=== PATIENT | male | born 1950 | race Caucasian/White ===

== ENCOUNTER → 2017-01-13 | Outpatient (CLI) | payer MEDICARE, OTHER ==
[2017-01-13 12:27] LABS: ABSOLUTE EOSINOPHILS # (AUTO) 0.2 10^3/uL (0.0-0.6); ABSOLUTE MONOCYTES (AUTO) 0.7 10^3/uL (0.1-1.4); ABSOLUTE NEUT (AUTO) 6.2 10^3/uL (1.7-8.2); BASOPHILS % (AUTO) 0.2 % (0-2); EOSINOPHILS % (AUTO) 2.7 % (0-6); HEMATOCRIT 32.5 % (37.9-51.0); HEMOGLOBIN 11.6 g/dL (13.5-17.0); HGB HCT DIFFERENCE 2.3; LYMPHOCYTES % (AUTO) 12.1 % (13-45); MEAN CORPUSCULAR HEMOGLOBIN 30.5 pg (27.0-33.4); MEAN CORPUSCULAR HGB CONC 35.7 g/dL (32.0-36.0); MEAN CORPUSCULAR VOLUME 86 fl (80-97); MONOCYTES % (AUTO) 8.1 % (3-13); RED CELL DISTRIBUTION WIDTH 14.1 % (11.5-14.0); SEGMENTED NEUTROPHILS % (AUTO) 76.9 % (42-78)
[2017-01-13 12:54] LABS: ALANINE AMINOTRANSFERASE 36 U/L (21-72); ALBUMIN 4.4 g/dL (3.5-5.0); ALKALINE PHOSPHATASE 129 U/L (38-126); ANION GAP 17 (5-19); ASPARTATE AMINO TRANSFERASE 19 U/L (17-59); BILIRUBIN,DIRECT 0.1 mg/dL (0.0-0.4); BILIRUBIN,TOTAL 0.7 mg/dL (0.2-1.3); BLOOD UREA NITROGEN 44 mg/dL (7-20); CALCIUM 9.8 mg/dL (8.4-10.2); CARBON DIOXIDE 32 mmol/L (22-30); CHLORIDE 87 mmol/L (98-107); CREATININE RESULT 1.09 mg/dL (0.52-1.25); SODIUM 135.7 mmol/L (137-145); TOTAL PROTEIN 6.5 g/dL (6.3-8.2)
[2017-01-13 13:08] LABS: GLUCOSE 442 mg/dL (75-110); POTASSIUM 2.9 mmol/L (3.6-5.0)
== END ==
LOC: OD 11:03
PROVIDERS: ATTEND Internal Medicine
DX: K92.2 Gastrointestinal hemorrhage, unspecified (principal); K57.92 Diverticulitis of intestine, part unspecified, without perforation or abscess without bleeding; E11.9 Type 2 diabetes mellitus without complications
CPT/HCPCS: 36415; 80053; 85025

== ENCOUNTER → 2017-01-15 | Outpatient (CLI) | payer MEDICARE, OTHER ==
[2017-01-15 09:27] LABS: ANION GAP 14 (5-19); BLOOD UREA NITROGEN 43 mg/dL (7-20); CARBON DIOXIDE 32 mmol/L (22-30); CHLORIDE 95 mmol/L (98-107); CREATININE RESULT 1.29 mg/dL (0.52-1.25); POTASSIUM 3.2 mmol/L (3.6-5.0); SODIUM 140.7 mmol/L (137-145)
== END ==
LOC: OD 08:35
PROVIDERS: ATTEND Internal Medicine
DX: E83.51 Hypocalcemia (principal); E11.9 Type 2 diabetes mellitus without complications
CPT/HCPCS: 36415; 80051; 82565; 84520

== ENCOUNTER → 2017-01-16 | Outpatient (CLI) | payer MEDICARE, OTHER | LOC: RAD 12:50 | PROVIDERS: ATTEND Internal Medicine Gastroenterology | DX: K92.1 Melena (principal); R10.11 Right upper quadrant pain | CPT/HCPCS: 74177 ==

== ENCOUNTER 2017-06-04 16:29 | Emergency (ER) | payer MEDICARE, OTHER ==
[2017-06-04] MEDS ORDERED: ASPIRIN 81 MG TABLET, CHEWABLE PO ONE (16:36)
--- NOTE | 2017-06-04 16:36 | ER Document Report ---
ED Cardiac <REUBEN BURDEN - Last Filed: 06/04/17 22:50> - General Mode of Arrival: Medic Information source: Patient TRAVEL OUTSIDE OF THE [place] IN LAST 30 DAYS: No <RADHA CORREA - Last Filed: 06/04/17 23:24> - General Stated Complaint: CHEST PAIN Time Seen by Provider: 06/04/17 16:36 Notes: 67 yo male with hx CAD, sleep apnea, narcolepsy, leg neuropathy, type 2 DM insulin dependent, bypass graft 05-15 at [facility] for the " maker" blockages. Did great 1st 1-2 months. Ended up with herniated L4,5 disc stenosis , back surgery pearce for foot drop which has persisted. called EMS because he was c/o intermittent left sided chest pain yesterday, lasting couple minutes each episodes. Carried on normal activity. 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 Pt does not want nitroglycerin due to headache. No cough or fever. No hx PE. PCP: dr. welch at [facility], Dr hooper. (RADHA CORREA) - Related Data Allergies/Adverse Reactions: Sulfa (Sulfonamide Antibiotics) Allergy (Mild, Verified 06/04/17 16:49) rash Home Medications: Current Home Medications Metolazone 2.5 mg PO BID 06/04/17 [History] Potassium Chloride [Klor-Con 10] 20 meq PO TID 06/04/17 [History] Ropinirole HCl [Ropinirole HCl] 1 mg PO TID 06/04/17 [History] Past Medical History - General Information source: Patient - Social History Smoking Status: Never Smoker Frequency of alcohol use: None Drug Abuse: None Lives with: Spouse/Significant other Family History: Reviewed & Not Pertinent - Past Medical History Cardiac Medical History: Reports: Hx Coronary Artery Disease, Hx Hypercholesterolemia, Hx Hypertension, Hx Peripheral Vascular Disease - History of a renal vascular shunt for hypertension Pulmonary Medical History: Reports: Hx Pneumonia Endocrine Medical History: Reports: Hx Diabetes Mellitus Type 2 - iunsulin dependant Renal/ Medical History: Reports: Other - gfr lower in december 2016 GI Medical History: Reports: Hx Gastroesophageal Reflux Disease Past Surgical History: Reports: Hx Cardiac Catheterization, Hx Cardiac Surgery - bypass 2014, Hx Kidney (Renal Surgery) - stent placement, Hx Nose Surgery - SINUS, Hx Orthopedic Surgery - left shoulder 2010, back x 2 - Immunizations Hx Diphtheria, Pertussis, Tetanus Vaccination: Yes Hx Pneumococcal Vaccination: 09/29/07 <RADHA CORREA - Last Filed: 06/04/17 23:24> Review of Systems - Review of Systems Constitutional: No symptoms reported EENT: No symptoms reported Cardiovascular: See HPI Respiratory: No symptoms reported Gastrointestinal: No symptoms reported Genitourinary: No symptoms reported Male Genitourinary: No symptoms reported Musculoskeletal: No symptoms reported Skin: No symptoms reported Hematologic/Lymphatic: No symptoms reported Neurological/Psychological: No symptoms reported <RADHA CORREA - Last Filed: 06/04/17 23:24> Physical Exam - Vital signs Interpretation: Hypertensive - mild - General General appearance: Appears well, Alert - HEENT Head: Normocephalic, Atraumatic Eyes: Normal Conjunctiva: Normal Pupils: PERRL Mucous membranes: Dry Pharynx: Normal Neck: Supple. No: Lymphadenopathy - Respiratory Respiratory status: No respiratory distress Chest status: Tender - left anterior chest to palpation Breath sounds: Normal Chest palpation: Normal - Cardiovascular Rhythm: Regular Heart sounds: Normal auscultation Murmur: No - Abdominal Inspection: Normal Distension: No distension Bowel sounds: Normal Tenderness: Nontender Organomegaly: No organomegaly - Back Back: Normal, Nontender - Extremities General upper extremity: Normal inspection, Nontender, Normal color, Normal ROM , Normal temperature General lower extremity: Normal inspection, Nontender, Normal color, Normal ROM , Normal temperature, Normal weight bearing. No: Heydi's sign - Neurological Neuro grossly intact: Yes Cognition: Normal Orientation: AAOx4 Vignesh Coma Scale Eye Opening: Spontaneous Vignesh Coma Scale Verbal: Oriented Vignesh Coma Scale Motor: Obeys Commands [place] Coma Scale Total: 15 Speech: Normal Motor strength normal: LUE, RUE, LLE, RLE Sensory: Normal - Psychological Associated symptoms: Normal affect, Normal mood - Skin Skin Temperature: Warm Skin Moisture: Dry Skin Color: Normal Skin irregularity: negative: Rash <RADHA CORREA - Last Filed: 06/04/17 23:24> - Vital signs Vitals: Temp Pulse Resp BP Pulse Ox 97.8 F 73 16 152/77 H 97 06/04/17 16:30 06/04/17 16:30 06/04/17 16:30 06/04/17 16:30 06/04/17 16:30 Course - Laboratory Result Diagrams: 06/04/17 16:40 06/04/17 16:40 <REUBEN BURDEN - Last Filed: 06/04/17 22:50> - Laboratory Result Diagrams: 06/04/17 16:40 06/04/17 16:40 <RADHA CORREA - Last Filed: 06/04/17 23:24> - Re-evaluation Re-evalutation: 06/04/17 22:30 Second cardiac enzymes unchanged from prior. Glucose is downtrending. Patient remains well-appearing. He states that he is feeling "twinges in his chest" intermittently but denies return of symptoms from previous Episode. I spoke to Dr. Smith, cardiology, he is director of consulting services for Dr. Welch who cares for the patient. Discussed history of present illness, patient history, workup findings. His recommendation is for patient to be seen in the office tomorrow on close follow-up with return precautions. I did discuss this with the patient and his at bedside, discussed potassium and glucose monitoring as well. They state understanding and agreement with plan. (REUBEN BURDEN) 06/04/17 17:04 lantus 70 units bid, sliding scale lispro up to 15units. 06/04/17 19:19 Care transferred to Reuben LOPEZ at this time at the bedside. Accu-Chek pending. The EKG showed a deeper T-wave inversion in the 2 compared to EKG done July 2016. (dr silva signed), Chest x-ray showed cardiomegaly, potassium was 3.1 treated with 40 mEq of potassium by mouth, 500 mL of normal saline given IV, insulin 10 units given IV for glucose of 495. Patient is pain-free at this time. 2nd Troponin will be drawn at 2035. 1st trop 0.21 similar to his in last er visit; (RADHA CORREA) - Vital Signs Vital signs: Temp Pulse Resp BP Pulse Ox 97.8 F 73 16 142/84 H 99 06/04/17 16:30 06/04/17 16:30 06/04/17 22:45 06/04/17 22:45 06/04/17 22:45 - Laboratory Laboratory results interpreted by me: 06/04/17 06/04/17 06/04/17 16:40 16:40 19:24 RBC 3.71 L Hgb 11.6 L Hct 33.3 L Plt Count 146 L Lymphocytes % 11.5 L Sodium 136.9 L Potassium 3.1 L Chloride 94 L BUN 30 H Creatinine 1.26 H Est GFR (Non-Af Amer) 57 L Glucose 495 H* POC Glucose 325 H Alkaline Phosphatase 152 H Discharge <REUBEN BURDEN - Last Filed: 06/04/17 22:50> <RADHA CORREA - Last Filed: 06/04/17 23:24> - Discharge Clinical Impression: Chest pain Qualifiers: Chest pain type: unspecified Qualified Code(s): R07.9 - Chest pain, unspecified Condition: Stable Disposition: HOME, SELF-CARE Additional Instructions: I spoke to Dr. Smith, sand caster director of consulting services for Dr. Welch. Recommendation is for you to be seen in the office tomorrow as planned. Your workup today does not indicate any acute concerning abnormalities, however your potassium was again low and needs to be rechecked after supplementation, your blood glucose also needs follow-up. Return to the emergency department for any concerning or worsening symptoms.
[2017-06-04 16:45] LABS: ABSOLUTE BASOPHILS # (AUTO) 0.1 10^3/uL (0.0-0.2); ABSOLUTE EOSINOPHILS # (AUTO) 0.3 10^3/uL (0.0-0.6); ABSOLUTE MONOCYTES (AUTO) 0.6 10^3/uL (0.1-1.4); ABSOLUTE NEUT (AUTO) 6.5 10^3/uL (1.7-8.2); BASOPHILS % (AUTO) 0.7 % (0-2); EOSINOPHILS % (AUTO) 3.1 % (0-6); HEMATOCRIT 33.3 % (37.9-51.0); HEMOGLOBIN 11.6 g/dL (13.5-17.0); HGB HCT DIFFERENCE 1.5; LYMPHOCYTES % (AUTO) 11.5 % (13-45); MEAN CORPUSCULAR HEMOGLOBIN 31.3 pg (27.0-33.4); MEAN CORPUSCULAR HGB CONC 34.9 g/dL (32.0-36.0); MEAN CORPUSCULAR VOLUME 90 fl (80-97); MONOCYTES % (AUTO) 7.1 % (3-13); RED BLOOD COUNT 3.71 10^6/uL (4.35-5.55); SEGMENTED NEUTROPHILS % (AUTO) 77.6 % (42-78); WHITE BLOOD COUNT 8.4 10^3/uL (4.0-10.5)
[2017-06-04 17:09] LABS: ALANINE AMINOTRANSFERASE 27 U/L (21-72); ALBUMIN 4.1 g/dL (3.5-5.0); ALKALINE PHOSPHATASE 152 U/L (38-126); ANION GAP 14 (5-19); ASPARTATE AMINO TRANSFERASE 20 U/L (17-59); BILIRUBIN,DIRECT 0.4 mg/dL (0.0-0.4); BILIRUBIN,TOTAL 0.6 mg/dL (0.2-1.3); BLOOD UREA NITROGEN 30 mg/dL (7-20); CALCIUM 9.5 mg/dL (8.4-10.2); CARBON DIOXIDE 29 mmol/L (22-30); CHLORIDE 94 mmol/L (98-107); CREATINE KINASE 167 U/L (55-170); CREATININE RESULT 1.26 mg/dL (0.52-1.25); POTASSIUM 3.1 mmol/L (3.6-5.0); SODIUM 136.9 mmol/L (137-145); TOTAL PROTEIN 6.6 g/dL (6.3-8.2)
--- NOTE | 2017-06-04 17:14 | RADIOLOGY REPORT (SQ) ---
EXAM DESCRIPTION: CHEST SINGLE VIEW COMPLETED DATE/TIME: 06/04/2017 4:57 pm REASON FOR STUDY: chest pain COMPARISON: Multiple chest films since 02/17/2013 CT chest 07/15/2014 EXAM PARAMETERS: NUMBER OF VIEWS: One view. TECHNIQUE: Single frontal radiographic view of the chest acquired. RADIATION DOSE: NA LIMITATIONS: None. FINDINGS: LUNGS AND PLEURA: No opacities, masses or pneumothorax. No pleural effusion. MEDIASTINUM AND HILAR STRUCTURES: No masses. Contour normal. HEART AND VASCULAR STRUCTURES: Stable moderate cardiomegaly BONES: No acute findings. HARDWARE: Post sternotomy for CABG. Left atrial appendage clip. OTHER: No other significant finding. IMPRESSION: Cardiomegaly. No acute findings TECHNICAL DOCUMENTATION: JOB ID: [id number]
[2017-06-04 17:15] LABS: CREATINE KINASE MB 3.93 ng/mL (<4.55); TROPONIN I 0.021 ng/mL
[2017-06-04 17:19] LABS: GLUCOSE 495 mg/dL (75-110)
[2017-06-04] MEDS ORDERED: NORMAL SALINE 1000 ML 500 ML IV ONE (17:52)
[2017-06-04] MEDS ORDERED: POTASSIUM CHLORIDE 20 MEQ/15 ML UDCUP PO ONE (17:54)
[2017-06-04] MEDS ORDERED: INSULIN REG, HUMAN 100 UNIT/ML 3 ML VIAL (PYX) IV ONE (17:54)
--- NOTE | 2017-06-04 19:48 | EKG REPORT ---
SEVERITY:- ABNORMAL ECG - SINUS RHYTHM RBBB AND LAFB : Confirmed by: Xu Boyle MD 04-Jun-2017 19:46:07
[2017-06-04 22:47] VITALS: BP 142/84
== END 2017-06-04 23:15 | disposition home or self-care (01) ==
LOC: ER 16:29
DX: R07.9 Chest pain, unspecified (principal); I25.10 Atherosclerotic heart disease of native coronary artery without angina pectoris; Z79.899 Other long term (current) drug therapy
CPT/HCPCS: 93005; 99285; 36415; 82553; 82962; 82550; 83735; 85025; 80053; 84484; 71010; 93010; A9270 ×2; J7030; J1815

== ENCOUNTER 2017-07-23 15:46 | Emergency (ER) | payer MEDICARE, OTHER ==
[2017-07-23] MEDS ORDERED: NORMAL SALINE 1000 ML 1,000 ML IV ONE (16:57)
[2017-07-23] MEDS ORDERED: MORPHINE SULFATE 10 MG/ML INJ IV ONE (16:59)
[2017-07-23] MEDS ORDERED: ONDANSETRON HCL INJ/PF 4 MG/2 ML SDV IV ONE (16:59)
[2017-07-23] MEDS ORDERED: CEFTRIAXONE 1 GM/D5W RTU 1 GM/50 ML RTUPB IV ONE (17:26)
--- NOTE | 2017-07-23 17:34 | ER Document Report ---
ED GI/ - General TRAVEL OUTSIDE OF THE [place] IN LAST 30 DAYS: No <ALDO TAFOYA - Last Filed: 07/23/17 20:08> <EMILIE POWER - Last Filed: 07/24/17 03:51> - General Chief Complaint: Testicular Swelling Stated Complaint: GROIN PAIN Time Seen by Provider: 07/23/17 16:40 Notes: Patient says that he is having pain in the scrotum and groin area that began as a nagging pain the evening of the , 5 days ago. He was on a cruise to the [facility], on the third day into the cruise when symptoms began. By the , 3 days ago, he noticed that his scrotum was a size of a softball. He went to the [facility] on the , 2 days ago, and was prescribed 2 antibiotics. When the ship was in the dock at [place], in the [facility], yesterday , patient went to the hospital where he had an ultrasound done and was told he needed to have immediate surgery or he would . Patient decided to get on an airplane and flew in here last night. Patient has not had any difficulty urinating and has not noticed any blood in his urine. He has had some vomiting , but no diarrhea. Is not aware of any fever, but does have chills. Patient is an insulin-dependent diabetic. (ALDO TAFOYA) - Related Data Allergies/Adverse Reactions: Sulfa (Sulfonamide Antibiotics) Allergy (Mild, Verified 07/23/17 15:50) rash Past Medical History - Social History Smoking Status: Never Smoker Chew tobacco use (# tins/day): No Frequency of alcohol use: None Drug Abuse: None Family History: Reviewed & Not Pertinent Patient has suicidal ideation: No Patient has homicidal ideation: No - Past Medical History Cardiac Medical History: Reports: Hx Atrial Fibrillation, Hx Coronary Artery Disease, Hx Hypercholesterolemia, Hx Hypertension, Hx Peripheral Vascular Disease - History of a renal vascular shunt for hypertension Denies: Hx Heart Attack Pulmonary Medical History: Reports: Hx Pneumonia Endocrine Medical History: Reports: Hx Diabetes Mellitus Type 1, Hx Diabetes Mellitus Type 2 - iunsulin dependant GI Medical History: Reports: Hx Gastroesophageal Reflux Disease Musculoskeltal Medical History: Denies Hx Arthritis Past Surgical History: Reports: Hx Cardiac Catheterization, Hx Cardiac Surgery - bypass 2014, Hx Coronary Stent, Hx Kidney (Renal Surgery) - stent placement, Hx Nose Surgery - SINUS, Hx Orthopedic Surgery - left shoulder 2011, back x 3 - Immunizations Hx Diphtheria, Pertussis, Tetanus Vaccination: Yes Hx Pneumococcal Vaccination: 09/29/07 <ALDO TAFOYA - Last Filed: 07/23/17 20:08> Review of Systems <ALDO TAFOYA - Last Filed: 07/23/17 20:08> <EMILIE POWER - Last Filed: 07/24/17 03:51> - Review of Systems Notes: REVIEW OF SYSTEMS: CONSTITUTIONAL : Denies fever, but has felt chills. EENT: Denies eye, ear, nose or mouth or throat pain or other symptoms. CARDIOVASCULAR: Denies chest pain. RESPIRATORY: Denies cough, chest congestion, or shortness of breath. GASTROINTESTINAL: Denies abdominal pain, but has had some nausea, vomiting, but not diarrhea. GENITOURINARY: Denies difficulty or painful urinating, urinary frequency, blood in urine. MUSCULOSKELETAL: Denies back or neck pain. Denies joint pain or swelling. SKIN: Denies rash or skin lesions. NEUROLOGICAL: Denies LOC or altered mental status. Denies headache. Denies sensory loss or motor deficits. ALL OTHER SYSTEMS REVIEWED AND NEGATIVE. (ALDO TAFOYA) Physical Exam <ALDO TAFOYA - Last Filed: 07/23/17 20:08> <EMILIE POWER - Last Filed: 07/24/17 03:51> - Vital signs Vitals: Temp Pulse Resp BP Pulse Ox 98.4 F 102 H 20 182/69 H 99 07/23/17 15:57 07/23/17 15:57 07/23/17 15:57 07/23/17 15:57 07/23/17 15:57 - Notes Notes: PHYSICAL EXAMINATION: GENERAL: Well-appearing, in no acute distress. Appears anxious as well as uncomfortable. HEAD: Atraumatic, normocephalic. EYES: Pupils equal round and reactive to light, extraocular movements intact. ENT: oropharynx clear without exudates. Moist mucous membranes. NECK: Normal range of motion, supple. LUNGS: Breath sounds clear and equal bilaterally. HEART: Regular rate and rhythm without murmurs. ABDOMEN: Soft, nontender. No guarding or rebound. Genitourinary: Patient's lower half or more of the scrotum is warm and red and swollen, but no fluctuance felt. I think I can feel both testicles and they are above the area of major tenderness and do not appear to be involved in this process. In the posterior aspect where the lower portion of the scrotum attaches to the perineum, there is a swollen area that is extremely tender to the touch. Unsure if any fluid is present such as an abscess, but no drainage noted. BACK: No tenderness throughout entire back. EXTREMITIES: Normal range of motion without pain. NEUROLOGICAL: Normal speech, normal gait. Normal sensory, motor, and reflex exams. Awake, alert, and oriented x3. Cranial nerves normal. PSYCH: Normal mood, normal affect. SKIN: Warm, dry, no rashes. (ALDO TAFOYA) Course - Laboratory Result Diagrams: 07/23/17 17:40 07/23/17 17:40 <ALDO TAFOYA - Last Filed: 07/23/17 20:08> - Laboratory Result Diagrams: 07/23/17 17:40 07/23/17 17:40 <EMILIE POWER - Last Filed: 07/24/17 03:51> - Re-evaluation Re-evalutation: 07/24/17 03:51 Pt reevaluated and patient stable for transport. (EMILIE POWER ) - Vital Signs Vital signs: Temp Pulse Resp BP Pulse Ox 98.4 F 72 25 H 149/80 H 92 07/23/17 15:57 07/24/17 01:01 07/23/17 22:30 07/23/17 21:00 07/24/17 00:00 - Laboratory Laboratory results interpreted by me: 07/23/17 07/23/17 07/23/17 17:40 17:40 20:50 WBC 14.3 H RBC 3.95 L Hgb 12.1 L Hct 35.3 L Plt Count 144 L Seg Neuts % (Manual) 88 H Lymphocytes % (Manual) 4 L Abs Neuts (Manual) 12.6 H Sodium 133.1 L Potassium 3.5 L Chloride 88 L BUN 23 H Est GFR (Non-Af Amer) 57 L Glucose 634 H* POC Glucose Total Bilirubin 2.1 H Direct Bilirubin 0.8 H AST 13 L Alkaline Phosphatase 130 H Urine Glucose (UA) >=500 H Urine Ketones TRACE H Urine Blood SMALL H 07/23/17 07/24/17 22:39 00:36 WBC RBC Hgb Hct Plt Count Seg Neuts % (Manual) Lymphocytes % (Manual) Abs Neuts (Manual) Sodium Potassium Chloride BUN Est GFR (Non-Af Amer) Glucose POC Glucose 484 H* 437 H* Total Bilirubin Direct Bilirubin AST Alkaline Phosphatase Urine Glucose (UA) Urine Ketones Urine Blood Discharge <ALDO TAFOYA - Last Filed: 07/23/17 20:08> <EMILIE POWER - Last Filed: 07/24/17 03:51> - Discharge Clinical Impression: Cellulitis of scrotum Condition: Stable
[2017-07-23 18:24] LABS: HEMATOCRIT 35.3 % (37.9-51.0); HEMOGLOBIN 12.1 g/dL (13.5-17.0); MEAN CORPUSCULAR HEMOGLOBIN 30.6 pg (27.0-33.4); MEAN CORPUSCULAR HGB CONC 34.2 g/dL (32.0-36.0); MEAN CORPUSCULAR VOLUME 89 fl (80-97); RED BLOOD COUNT 3.95 10^6/uL (4.35-5.55); WHITE BLOOD COUNT 14.3 10^3/uL (4.0-10.5)
[2017-07-23 18:34] LABS: ALANINE AMINOTRANSFERASE 28 U/L (21-72); ALBUMIN 4.2 g/dL (3.5-5.0); ALKALINE PHOSPHATASE 130 U/L (38-126); ANION GAP 17 (5-19); ASPARTATE AMINO TRANSFERASE 13 U/L (17-59); BILIRUBIN,DIRECT 0.8 mg/dL (0.0-0.4); BILIRUBIN,TOTAL 2.1 mg/dL (0.2-1.3); BLOOD UREA NITROGEN 23 mg/dL (7-20); CARBON DIOXIDE 28 mmol/L (22-30); CHLORIDE 88 mmol/L (98-107); CREATININE RESULT 1.25 mg/dL (0.52-1.25); POTASSIUM 3.5 mmol/L (3.6-5.0); SODIUM 133.1 mmol/L (137-145); TOTAL PROTEIN 6.6 g/dL (6.3-8.2)
[2017-07-23 18:43] LABS: BASOPHILS % (MANUAL) 0 % (0-2); EOSINOPHILS % (MANUAL) 0 % (0-6); LYMPHOCYTES % (MANUAL) 4 % (13-45); TOTAL CELLS COUNTED 100
[2017-07-23 18:44] LABS: TOXIC GRANULATION SLIGHT
[2017-07-23 18:55] LABS: GLUCOSE 634 mg/dL (75-110)
[2017-07-23] MEDS ORDERED: INSULIN REG, HUMAN 100 UNIT/ML 3 ML VIAL (PYX) SUBCUT ONE (19:29)
--- NOTE | 2017-07-23 19:30 | RADIOLOGY REPORT (SQ) ---
EXAM DESCRIPTION: U/S SCROTUM W/DOPPLER COMPLETED DATE/TIME: 07/23/2017 7:21 pm REASON FOR STUDY: Swelling scrotum 5 days COMPARISON: None. TECHNIQUE: Static and realtime schaffer scale imaging of the scrotum and testes. Selected color Doppler and spectral images recorded to document blood flow. LIMITATIONS: None. FINDINGS: RIGHT: TESTICLE: Normal size. Normal echotexture. Normal blood flow. No mass. EPIDIDYMIS: Normal. HYDROCELE OR VARICOCELE: No. HERNIA OR EXTRA-TESTICULAR MASS: No. OTHER: Diffuse scrotal wall thickening and edema. No soft tissue fluid collection. LEFT: TESTICLE: Normal size. Normal echotexture. Normal blood flow. No mass. EPIDIDYMIS: Normal. HYDROCELE OR VARICOCELE: Minimal varicocele. HERNIA OR EXTRA-TESTICULAR MASS: No. OTHER: Diffuse scrotal wall thickening and edema. No soft tissue fluid collection. IMPRESSION: 1. DIFFUSE SCROTAL WALL THICKENING AND EDEMA THROUGHOUT. NO SOFT TISSUE FLUID COLLECTION TO INDICATE ABSCESS. 2. NORMAL TESTICULAR ULTRASOUND. NO EVIDENCE OF TESTICULAR MASS OR TORSION. TECHNICAL DOCUMENTATION: JOB ID: [id number]- All Rights Reserved
[2017-07-23] MEDS ORDERED: PIPERACILLIN/TAZOBACTAM 3.375 GM VIAL IV ONE (20:05)
[2017-07-23] MEDS ORDERED: NORMAL SALINE 1000 ML 1,000 ML IV PRN (21:21)
[2017-07-23 21:27] LABS: APPEARANCE,URINE CLEAR; BILIRUBIN,URINE NEGATIVE (NEGATIVE); GLUCOSE, URINE >=500 mg/dL (NEGATIVE); KETONES,URINE TRACE mg/dL (NEGATIVE); LEUKOCYTE ESTERASE,URINE NEGATIVE (NEGATIVE); NITRITE,URINE NEGATIVE (NEGATIVE); PROTEIN,URINE NEGATIVE (NEGATIVE); URINE SPECIFIC GRAVITY 1.026; UROBILINOGEN,URINE NEGATIVE mg/dL (<2.0)
--- NOTE | 2017-07-23 21:30 | PDOC CONSULTATION ---
Consultation Consult Date: 07/23/17 Attending physician:: ALDO TAFOYA Consult reason:: Scrotal cellulitis History of Present Illness Admission Date/PCP: 07/23/17 Patient complains of: Scrotal edema and pain History of Present Illness: JAREN SIERRA is a 67 year old male who presents to [facility] with 4 day history of scrotal pain and swelling. Prior history of excursion on a cruise with development of swelling and pain. He received oral antibiotic course while oversea with initial improvement of symptoms. With discontinuation of oral antibiotics symptoms recurred prompting [place] the [place] and [place] to [place]. History of DM. Currently pain improved on IV pain control. Denies any fever, chest pain, shortness of breath, headache, dizziness or loss of consciousness. Past Medical History Cardiac Medical History: Reports: Atrial Fibrillation, Coronary Artery Disease, Hyperlipidema, Hypertension, Peripheral Vascular Disease - History of a renal vascular shunt for hypertension Denies: Myocardial Infarction Pulmonary Medical History: Reports: Pneumonia Endocrine Medical History: Reports: Diabetes Mellitus Type 1, Diabetes Mellitus Type 2 - iunsulin dependant GI Medical History: Reports: Gastroesophageal Reflux Disease Musculoskeltal Medical History: Denies: Arthritis Hematology: Denies: Anemia Past Surgical History Past Surgical History: Reports: Cardiac Catheterization, Coronary Stent, Orthopedic Surgery - left shoulder 2011, back x 3 Social History Information Source: Patient Lives with: Family Smoking Status: Never Smoker Frequency of Alcohol Use: None Hx Recreational Drug Use: No Drugs: None Hx Prescription Drug Abuse: No Family History Family History: None, Reviewed & Not Pertinent Parental Family History Reviewed: Yes Children Family History Reviewed: Yes Sibling(s) Family History Reviewed.: Yes Medication/Allergy Home Medications: Aspirin [Ecotrin 81 mg EC Tablet] 81 mg PO DAILY 10/26/11 Atorvastatin Calcium [Lipitor 40 mg Tablet] 40 mg PO QHS 10/26/11 Cholecalciferol (Vitamin D3) [Vitamin D3] 800 unit PO DAILY 11/23/15 Furosemide [Lasix 40 mg Tablet] 40 mg PO BID 11/23/15 Magnesium Oxide [Mag-Ox 400 mg Tablet] 400 mg PO DAILY 11/23/15 Pramipexole Di-HCl [Pramipexole Dihydrochloride] 2 mg PO QHS 11/23/15 Telmisartan 40 mg PO DAILY 11/23/15 Carvedilol [Coreg 12.5 mg Tablet] 25 mg PO Q12 #0 tablet 11/26/15 Terazosin HCl [Hytrin] 7 mg PO DAILY 01/05/16 Dabigatran Etexilate Mesylate [Pradaxa 150 mg Capsule] 150 mg PO Q12 01/09/16 Metolazone 2.5 mg PO BID 06/04/17 Potassium Chloride [Klor-Con 10] 20 meq PO TID 06/04/17 Ropinirole HCl [Ropinirole HCl] 1 mg PO TID 06/04/17 Allergies/Adverse Reactions: Sulfa (Sulfonamide Antibiotics) Allergy (Mild, Verified 07/23/17 15:50) rash Review of Systems Constitutional: ABSENT: fever(s), headache(s), night sweats, weakness Respiratory: ABSENT: dyspnea, hemoptysis Gastrointestinal: ABSENT: abdominal pain, nausea, vomiting Neurological: ABSENT: focal weakness, frequent falls, lack of coordination, memory loss Physical Exam Vital Signs: Temp Pulse Resp BP Pulse Ox 98.4 F 102 H 20 182/69 H 99 07/23/17 15:57 07/23/17 15:57 07/23/17 15:57 07/23/17 15:57 07/23/17 15:57 Intake & Output 07/22/17 07/23/17 07/24/17 06:59 06:59 06:59 Weight 132.903 kg General appearance: PRESENT: no acute distress, obese Head exam: PRESENT: atraumatic, normocephalic Eye exam: PRESENT: conjunctiva pink. ABSENT: conjunctival injection Mouth exam: PRESENT: moist, neck supple Neck exam: ABSENT: lymphadenopathy, thyromegaly, tracheal deviation Respiratory exam: PRESENT: clear to auscultation eladio Cardiovascular exam: PRESENT: RRR Vascular exam: PRESENT: normal capillary refill GI/Abdominal exam: PRESENT: normal bowel sounds, soft, other - scrotal swelling , edema and pain to the site, limited only to the scrotum, US without signs of fluid collection. ABSENT: tenderness Extremities exam: ABSENT: calf tenderness Neurological exam: PRESENT: alert, awake, oriented to person, oriented to time, CN II-XII grossly intact Results Laboratory Results: 07/23/17 17:40 07/23/17 17:40 07/23/17 07/23/17 17:40 17:40 WBC 14.3 H RBC 3.95 L Hgb 12.1 L Hct 35.3 L MCV 89 MCH 30.6 MCHC 34.2 RDW 13.0 Plt Count 144 L Seg Neutrophils % Not Reportable Lymphocytes % Not Reportable Monocytes % Not Reportable Eosinophils % Not Reportable Basophils % Not Reportable Absolute Neutrophils Not Reportable Absolute Lymphocytes Not Reportable Absolute Monocytes Not Reportable Absolute Eosinophils Not Reportable Absolute Basophils Not Reportable Sodium 133.1 L Potassium 3.5 L Chloride 88 L Carbon Dioxide 28 Anion Gap 17 BUN 23 H Creatinine 1.25 Est GFR ( Amer) > 60 Est GFR (Non-Af Amer) 57 L Glucose 634 H* Calcium 9.0 Total Bilirubin 2.1 H AST 13 L ALT 28 Alkaline Phosphatase 130 H Total Protein 6.6 Albumin 4.2 Impressions: Scrotum Ultrasound 07/23/17 16:58 IMPRESSION: 1. DIFFUSE SCROTAL WALL THICKENING AND EDEMA THROUGHOUT. NO SOFT TISSUE FLUID COLLECTION TO INDICATE ABSCESS. 2. NORMAL TESTICULAR ULTRASOUND. NO EVIDENCE OF TESTICULAR MASS OR TORSION. 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
[2017-07-24] MEDS ORDERED: NORMAL SALINE 1000 ML 1,000 ML IV ONE (00:50)
[2017-07-24 03:54] VITALS: BP 121/63
== END 2017-07-24 04:21 | disposition short-term general hospital (02) ==
LOC: ER 15:46
DX: N49.2 Inflammatory disorders of scrotum (principal); N50.89 Other specified disorders of the male genital organs; N50.819 Testicular pain, unspecified
CPT/HCPCS: 36415; 87040; 82962; 85025; 80053; 81001; 83605; 76870; 93976; 94660; J2270; A9270; J2405; J7030 ×2; J0696; J2543; 96361; 96365; 96367; 96375; 99284; J1815

== ENCOUNTER → 2018-03-10 | Outpatient (CLI) | payer MEDICARE, OTHER ==
--- NOTE | 2018-03-10 15:04 | RADIOLOGY REPORT (SQ) ---
EXAM DESCRIPTION: CHEST PA/LATERAL COMPLETED DATE/TIME: 03/10/2018 1:58 pm REASON FOR STUDY: COUGH COMPARISON: May 2017 EXAM PARAMETERS: NUMBER OF VIEWS: two views TECHNIQUE: Digital Frontal and Lateral radiographic views of the chest acquired. RADIATION DOSE: NA LIMITATIONS: none FINDINGS: LUNGS AND PLEURA: No opacities, masses or pneumothorax. No pleural effusion. MEDIASTINUM AND HILAR STRUCTURES: No masses or contour abnormalities. HEART AND VASCULAR STRUCTURES: Cardiac silhouette remains enlarged and is unchanged in configuration. BONES: No acute findings. HARDWARE: Patient is status post median sternotomy. OTHER: No other significant finding. IMPRESSION: No significant interval change. Cardiomegaly. No acute changes. Other findings as not ed above TECHNICAL DOCUMENTATION: JOB ID: [id number] [employer]- All Rights Reserved Reading location - IP/workstation name: [email or web address] [email or web address]
== END ==
LOC: OD 13:50
PROVIDERS: ATTEND Internal Medicine
DX: J40 Bronchitis, not specified as acute or chronic (principal); R05 Cough
CPT/HCPCS: 71046

== ENCOUNTER → 2018-03-12 | Outpatient (CLI) | payer MEDICARE, OTHER ==
--- NOTE | 2018-03-12 09:20 | RADIOLOGY REPORT (SQ) ---
EXAM DESCRIPTION: CT FACIAL AREA WITHOUT COMPLETED DATE/TIME: 03/12/2018 8:41 am REASON FOR STUDY: CHRONIC SINUSITIS (J32.9) J32.9 CHRONIC SINUSITIS, UNSPECIFIED COMPARISON: None. TECHNIQUE: Noncontrasted images through the facial bones and orbits windowed for bone and soft tissu e. Additional coronal and sagittal reconstructed images reviewed. All images stored on PACS. All CT scanners at this facility use dose modulation, iterative reconstruction, and/or weight based d osing when appropriate to reduce radiation dose to as low as reasonably achievable (ALARA). [facility]: Dose Right [facility]: CareDose [facility]: Dose Right [facility]: Teradose 4D [facility]: OfferWire RADIATION DOSE: 44.7 mGy. LIMITATIONS: None. FINDINGS: FACIAL BONES: No fracture or bone lesion. ORBITS: Intact. No fracture. Symmetric intact globes and retroorbital soft tissues. PARANASAL SINUSES: Patient is post endoscopic sinus surgery, with resection of the middle terminates on the right, and surgical widening of the bilateral maxillary outlets. Resection of the inferior et hmoid air cell septa. There is opacification of the ethmoid air cells and fronto ethmoid junctions with mucous membrane thi ckening or fluid in the inferior bilateral frontal sinuses. Circumferential mucous membrane thickening in the bilateral maxillary sinuses right greater than left . Circumferential mucous membrane thickening in the sphenoid sinuses. No nasal polyps. SOFT TISSUES: No mass or edema. INFERIOR BRAIN: Limited view. No acute findings. OTHER: No other significant finding. IMPRESSION: Extensive inflammatory change in the paranasal sinuses. TECHNICAL DOCUMENTATION: JOB ID: [id number] Quality ID # [id number]: Final reports with documentation of one or more dose reduction techniques (e.g., Au tomated exposure control, adjustment of the mA and/or kV according to patient size, use of iterative reconstruction technique) 2010 [employer]- All Rights Reserved Reading location - IP/workstation name: [email or web address]
== END ==
LOC: RAD 08:00
PROVIDERS: ATTEND Internal Medicine
DX: J32.9 Chronic sinusitis, unspecified (principal)
CPT/HCPCS: 70486

== ENCOUNTER 2018-04-12 11:11 | Inpatient (IN) | payer MEDICARE, OTHER ==
--- NOTE | 2018-04-12 11:40 | ER Document Report ---
ED Dizziness/Weakness - General Chief Complaint: Nausea/Vomiting Stated Complaint: WEAKNESS Time Seen by Provider: 04/12/18 11:16 Mode of Arrival: Medic Information source: Patient Notes: Patient reports that about 30 minutes prior to arrival he had a episode of weakness. Patient was walking to his vehicle at the time. Patient states he had nausea and vomited. Patient states that his blood pressure was initially very low. Patient denies any headache, chest pain or back pain. Patient states that the nausea has resolved and his weakness is somewhat improved although still present. TRAVEL OUTSIDE OF THE [place] IN LAST 30 DAYS: No - HPI Patient complains to provider of: Weakness Onset: Just prior to arrival Onset/Duration: Sudden Pain Level: Denies Associated symptoms: Nausea, Vomiting, Weak all over. denies: Chest pain, Confused, Diarrhea, Fainted, Headache Baseline gait: Walks w/o assistance - Related Data Allergies/Adverse Reactions: Sulfa (Sulfonamide Antibiotics) Allergy (Mild, Verified 07/23/17 15:50) rash Past Medical History - General Information source: Patient - Social History Smoking Status: Never Smoker Frequency of alcohol use: None Drug Abuse: None Occupation: Retired Lives with: Family Family History: None, Reviewed & Not Pertinent Patient has suicidal ideation: No Patient has homicidal ideation: No - Past Medical History Cardiac Medical History: Reports: Hx Atrial Fibrillation, Hx Coronary Artery Disease, Hx Hypercholesterolemia, Hx Hypertension, Hx Peripheral Vascular Disease - History of a renal vascular shunt for hypertension Denies: Hx Heart Attack Pulmonary Medical History: Reports: Hx Pneumonia Endocrine Medical History: Reports: Hx Diabetes Mellitus Type 1, 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 denies: Chills, Fever EENT: No symptoms reported Cardiovascular: No symptoms reported. denies: Chest pain Respiratory: No symptoms reported. denies: Cough, Short of breath Gastrointestinal: Nausea, Vomiting. denies: Abdominal pain, Diarrhea Genitourinary: No symptoms reported Male Genitourinary: No symptoms reported Musculoskeletal: No symptoms reported. denies: Back pain Skin: No symptoms reported Hematologic/Lymphatic: No symptoms reported Neurological/Psychological: No symptoms reported. denies: Lost consciousness, Headaches Physical Exam - Vital signs Vitals: Resp Pulse Ox 19 100 04/12/18 11:17 04/12/18 11:17 - General General appearance: Appears well, Alert In distress: None - HEENT Head: Normocephalic Eyes: Normal Conjunctiva: Normal Nasal: Normal Mouth/Lips: Normal Mucous membranes: Normal Pharynx: Normal Neck: Normal, Supple. No: Lymphadenopathy - Respiratory Respiratory status: No respiratory distress Chest status: Nontender Breath sounds: Normal. No: Rales, Rhonchi, Stridor, Wheezing Chest palpation: Normal - Cardiovascular Rhythm: Regular Heart sounds: S1 appreciated, S2 appreciated Murmur: No - Abdominal Inspection: Obese Distension: No distension Bowel sounds: Normal Tenderness: Nontender Organomegaly: No organomegaly - Back Back: Normal, Nontender. No: CVA tenderness - Extremities General upper extremity: Normal inspection, Normal ROM General lower extremity: Normal inspection, Normal ROM. No: Edema - Neurological Neuro grossly intact: Yes Cognition: Normal [place] Coma Scale Eye Opening: Spontaneous Vignesh Coma Scale Verbal: Oriented [place] Coma Scale Motor: Obeys Commands [place] Coma Scale Total: 15 - Psychological Associated symptoms: Normal affect, Normal mood - Skin Skin Temperature: Warm Skin Moisture: Dry Skin Color: Normal Course - Re-evaluation Re-evalutation: 04/12/18 13:[address] Romero regarding patient presentation and diagnostic evaluation. Dr. Romero agrees with plan for admission at this time. Patient with stable vital signs and denies any headache, chest pain, back pain or abdominal pain at this time. Discussed plan of care with patient and family, patient is agreeable with admission at this time. Family and with concerns about patient's previous medical history. Discussed with family and patient that given his stable vital signs and lack of any symptoms aside from generalized weakness in the setting of hypokalemia that patient does not presently meet criteria to need to be transferred to a higher level of care facility at this time. Patient does take diuretics, Lasix 4 times a day. Patient reports that he has had problems with low potassium in the past but this is usually whenever he has become sick. Consulted with hospitalist Dr. Giles who agrees to accept admission, ABIMAEL Guzman to evaluate patient. Consulted with ABIMAEL Guzman regarding plan for admission. 04/12/18 13:34 Patient states that last night around 11 PM he did have a shock sensation in his chest that was brief in duration and resolved. Patient denies any shock sensation in his chest today. ABIMAEL Guzman updated regarding this component of the history. ABIMAEL Guzman also advised that family is very concerned that patient remain on a cardiac exercise specialist during his admission. - Vital Signs Vital signs: Temp Pulse Resp BP Pulse Ox 97.8 F 64 19 125/76 99 04/12/18 17:27 04/12/18 17:27 04/12/18 17:27 04/12/18 17:27 04/12/18 17:27 - Laboratory Result Diagrams: 04/12/18 10:50 04/12/18 17:05 Laboratory results interpreted by me: 04/12/18 04/12/18 04/12/18 10:50 10:50 10:50 WBC 10.6 H RBC 4.19 L Hgb 12.7 L Hct 36.0 L Seg Neutrophils % 79.7 H Lymphocytes % 9.1 L Absolute Neutrophils 8.5 H PT 17.6 H APTT 46.8 H Potassium 2.7 L* Chloride 92 L Carbon Dioxide 32 H BUN 24 H Creatinine 1.43 H Est GFR ( Amer) 59 L Est GFR (Non-Af Amer) 49 L Glucose 264 H Labs- Entire Visit 04/12/18 04/12/18 04/12/18 10:50 10:50 10:50 WBC 10.6 H RBC 4.19 L Hgb 12.7 L Hct 36.0 L MCV 86 MCH 30.4 MCHC 35.4 RDW 13.9 Plt Count 154 Seg Neutrophils % 79.7 H Lymphocytes % 9.1 L Monocytes % 7.6 Eosinophils % 3.4 Basophils % 0.2 Absolute Neutrophils 8.5 H Absolute Lymphocytes 1.0 Absolute Monocytes 0.8 Absolute Eosinophils 0.4 Absolute Basophils 0.0 PT INR APTT Sodium 139.5 Potassium 2.7 L* Chloride 92 L Carbon Dioxide 32 H Anion Gap 16 BUN 24 H Creatinine 1.43 H Est GFR ( Amer) 59 L Est GFR (Non-Af Amer) 49 L Glucose 264 H Calcium 9.4 Magnesium 2.1 Total Bilirubin 1.0 Direct Bilirubin 0.4 Neonat Total Bilirubin Not Reportable Neonat Direct Bilirubin Not Reportable Neonat Indirect Bili Not Reportable AST 20 ALT 27 Alkaline Phosphatase 110 Creatine Kinase 165 CK-MB (CK-2) 3.45 Troponin I 0.046 Total Protein 6.6 Albumin 4.1 Lipase 72.5 04/12/18 10:50 WBC RBC Hgb Hct MCV MCH MCHC RDW Plt Count Seg Neutrophils % Lymphocytes % Monocytes % Eosinophils % Basophils % Absolute Neutrophils Absolute Lymphocytes Absolute Monocytes Absolute Eosinophils Absolute Basophils PT 17.6 H INR 1.37 APTT 46.8 H Sodium Potassium Chloride Carbon Dioxide Anion Gap BUN Creatinine Est GFR ( Amer) Est GFR (Non-Af Amer) Glucose Calcium Magnesium Total Bilirubin Direct Bilirubin Neonat Total Bilirubin Neonat Direct Bilirubin Neonat Indirect Bili AST ALT Alkaline Phosphatase Creatine Kinase CK-MB (CK-2) Troponin I Total Protein Albumin Lipase - Diagnostic Test Radiology reviewed: Reports reviewed Discharge - Discharge Clinical Impression: Hypokalemia, Weakness Hypotension Qualifiers: Hypotension type: unspecified hypotension type Qualified Code(s): I95.9 - Hypotension, unspecified Condition: Stable Disposition: ADMITTED INPATIENT Admitting Provider: Hospitalist Unit Admitted: Telemetry
[2018-04-12 12:03] LABS: ABSOLUTE EOSINOPHILS # (AUTO) 0.4 10^3/uL (0.0-0.6); ABSOLUTE MONOCYTES (AUTO) 0.8 10^3/uL (0.1-1.4); ABSOLUTE NEUT (AUTO) 8.5 10^3/uL (1.7-8.2); BASOPHILS % (AUTO) 0.2 % (0-2); EOSINOPHILS % (AUTO) 3.4 % (0-6); HEMOGLOBIN 12.7 g/dL (13.5-17.0); LYMPHOCYTES % (AUTO) 9.1 % (13-45); MEAN CORPUSCULAR HEMOGLOBIN 30.4 pg (27.0-33.4); MEAN CORPUSCULAR HGB CONC 35.4 g/dL (32.0-36.0); MEAN CORPUSCULAR VOLUME 86 fl (80-97); MONOCYTES % (AUTO) 7.6 % (3-13); PLATELET COUNT 154 10^3/uL (150-450); RED BLOOD COUNT 4.19 10^6/uL (4.35-5.55); RED CELL DISTRIBUTION WIDTH 13.9 % (11.5-14.0); SEGMENTED NEUTROPHILS % (AUTO) 79.7 % (42-78); TOTAL CELLS COUNTED % (AUTO) 100 %; WHITE BLOOD COUNT 10.6 10^3/uL (4.0-10.5)
[2018-04-12 12:05] LABS: INTERNATIONAL RATION (INR) 1.37; PROTHROMBIN TIME 17.6 SEC (11.4-15.4)
[2018-04-12 12:06] LABS: PARTIAL THROMBOPLASTIN TIME 46.8 SEC (23.5-35.8)
[2018-04-12 12:10] LABS: ALANINE AMINOTRANSFERASE 27 U/L (21-72); ALBUMIN 4.1 g/dL (3.5-5.0); ALKALINE PHOSPHATASE 110 U/L (38-126); ANION GAP 16 (5-19); ASPARTATE AMINO TRANSFERASE 20 U/L (17-59); BILIRUBIN,DIRECT 0.4 mg/dL (0.0-0.4); BLOOD UREA NITROGEN 24 mg/dL (7-20); CALCIUM 9.4 mg/dL (8.4-10.2); CARBON DIOXIDE 32 mmol/L (22-30); CHLORIDE 92 mmol/L (98-107); CREATINE KINASE 165 U/L (55-170); GLUCOSE 264 mg/dL (75-110); LIPASE 72.5 U/L (23-300); SODIUM 139.5 mmol/L (137-145); TOTAL PROTEIN 6.6 g/dL (6.3-8.2)
[2018-04-12 12:13] LABS: POTASSIUM 2.7 mmol/L (3.6-5.0)
[2018-04-12] MEDS ORDERED: POTASSIUM CHLORIDE 10 MEQ CAPSULE.ER PO ONE ×2 (12:16→18:13)
[2018-04-12 12:22] LABS: CREATINE KINASE MB 3.45 ng/mL (<4.55); TROPONIN I 0.046 ng/mL
[2018-04-12] MEDS ORDERED: NORMAL SALINE 500 ML IV ONE (12:29)
[2018-04-12] MEDS ORDERED: POTASSI CL 20 MEQ/50 ML RIDER 20 MEQ/50 ML RTUPB IV ONE ×2 (12:30→18:14)
--- NOTE | 2018-04-12 12:42 | RADIOLOGY REPORT (SQ) ---
EXAM DESCRIPTION: CHEST 2 VIEWS COMPLETED DATE/TIME: 04/12/2018 12:32 pm REASON FOR STUDY: weakness COMPARISON: None. NUMBER OF VIEWS: Two view. TECHNIQUE: Frontal and lateral radiographic views of the chest acquired. LIMITATIONS: None. FINDINGS: LUNGS AND PLEURA: No opacities, masses or pneumothorax. No pleural effusion. MEDIASTINUM AND HILAR STRUCTURES: No masses. No contour abnormalities. HEART AND VASCULAR STRUCTURES: Heart enlarged without failure. Aorta normal for age. BONES: No acute findings. HARDWARE: CABG hardware. OTHER: No other significant finding. IMPRESSION: CARDIAC ENLARGEMENT WITHOUT FAILURE. TECHNICAL DOCUMENTATION: JOB ID: [id number] [employer]- All Rights Reserved Reading location - IP/workstation name: [email or web address]
[2018-04-12] MEDS ORDERED: ONDANSETRON 4 MG TAB.RAPDIS PO PRN (14:46)
[2018-04-12] MEDS ORDERED: ACETAMINOPHEN 325 MG TABLET PO PRN (14:46)
[2018-04-12] MEDS ORDERED: DEXTROSE 50%-WATER 25 GM/50 ML DISP.SYRIN IV PRN ×2 (16:53)
[2018-04-12] MEDS ORDERED: DEXTROSE 40% GEL 15 GM TUBE PO PRN ×2 (16:53)
[2018-04-12] MEDS ORDERED: GLUCAGON,HUMAN RECOMB 1 MG INJ IM PRN (16:53)
[2018-04-12] MEDS ORDERED: METOLAZONE 2.5 MG TABLET PO SCH (18:00)
[2018-04-12] MEDS ORDERED: ROPINIROLE HCL 1 MG TABLET ONE (18:28)
[2018-04-12] MEDS ORDERED: METOLAZONE 2.5 MG TABLET ONE (18:29)
[2018-04-12] MEDS: ROPINIROLE HCL 1 MG TABLET PO SCH ×2 (18:46→21:27)
[2018-04-12] MEDS ORDERED: PRAMIPEXOLE DI-HCL 0.5 MG TABLET ONE (21:26)
[2018-04-12] MEDS: CARVEDILOL 12.5 MG TABLET PO SCH (21:26)
[2018-04-12] MEDS: ATORVASTATIN CALCIUM 40 MG TABLET PO SCH (21:26)
[2018-04-12] MEDS: DOXAZOSIN MESYLATE 4 MG TABLET PO SCH (21:27)
[2018-04-12] MEDS: DABIGATRAN ETEXILATE 150 MG CAPSULE PO SCH (21:28)
[2018-04-12] MEDS: FAMOTIDINE 20 MG TABLET PO SCH (21:28)
[2018-04-12] MEDS: PRAMIPEXOLE DI-HCL 0.5 MG TABLET PO SCH (21:31)
[2018-04-12] MEDS: INSULIN LISPRO 100 UNIT/ML 3 ML VIAL SUBCUT PRN (21:59)
--- NOTE | 2018-04-12 22:00 | PDOC H&P ---
History of Present Illness Admission Date/PCP: 04/12/18 14:37 MADHAVI GREEN, Patient complains of: WEAKNESS History of Present Illness: JAREN SIERRA is a 68 year old male who presented to the ED for weakness, nausea, vomiting and diarrhea. The patient reports he began experiencing intermittent episodes of sharp chest pain 48hrs prior to arrival to [facility]. The pain was non-radiating and cannot remember if his symptoms were associated with activity, or if they occured wile at rest. The patient denies any other associated symptoms. States, "it felt like a pulled muscle." Today, the patient woke up around 0800. When walking out to his car, the patient began to feel nauseated and vomited. He reports that he went back to his house and experienced diarrhea. 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 PMH CABG x 2, CAD, HTN, HLD, DM, RICHARD, gout, bronchitis Upon arrival to the ED, the patient's vital signs were BP 121/87 HR 58 RR 18 T 98 SPO2 100%. He denied chest pain, shortness of breath, dizziness, vision changes, headaches, syncope/near-syncope. His only complaint was weakness. EKG shows sinus bradycardia, irregular, no evidence of infarction or ischemia. CXR benign. Troponin 0.046. K 2.7. Cr 1.43. Rest of the lab work is benign. The patient was treated in the ED with 500mL IVF bolus and KCL replacement (20meq IV 40meq PO). Upon assessment, the patient is resting comfortably in bed on room air. He is awake and oriented x 3, able to answer all questions appropriately. Lungs are clear to auscultation. S1S2, no murmur/rubs/gallops. + 1 peripheral edema in lower extremities. 5/5 strength in upper and lower extremities. Patient admitted to hospitalist service for ARF, HYPOkalemia, and chest pain. 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 GI Medical History: Reports: Gastroesophageal Reflux Disease Musculoskeltal Medical History: Reports: Gout Denies: Arthritis Psychiatric Medical History: Denies: Depression Hematology: Denies: Anemia Past Surgical History Past Surgical History: Reports: Cardiac Catheterization, Coronary Artery Bypass Graft - x 2, Coronary Stent, Orthopedic Surgery - left shoulder 2011, back x 3 Social History Information Source: Patient Lives with: Family Smoking Status: Never Smoker Frequency of Alcohol Use: None Hx Recreational Drug Use: No Drugs: None Hx Prescription Drug Abuse: No - Advance Directive Resuscitation Status: Full Code Family History Family History: DM Parental Family History Reviewed: Yes Children Family History Reviewed: NA Sibling(s) Family History Reviewed.: NA Medication/Allergy Home Medications: Aspirin [Ecotrin 81 mg EC Tablet] 81 mg PO DAILY 10/26/11 Atorvastatin Calcium [Lipitor 40 mg Tablet] 40 mg PO QHS 10/26/11 Cholecalciferol (Vitamin D3) [Vitamin D3] 800 unit PO DAILY 11/23/15 Furosemide [Lasix 40 mg Tablet] 40 mg PO QID 11/23/15 Magnesium Oxide [Mag-Ox 400 mg Tablet] 400 mg PO DAILY 11/23/15 Pramipexole Di-HCl [Pramipexole Dihydrochloride] 2 mg PO QHS 11/23/15 Telmisartan 80 mg PO DAILY 11/23/15 Carvedilol [Coreg 12.5 mg Tablet] 25 mg PO Q12 #0 tablet 11/26/15 Dabigatran Etexilate Mesylate [Pradaxa 150 mg Capsule] 150 mg PO Q12 01/09/16 Metolazone 2.5 mg PO BID 06/04/17 Ropinirole HCl [Ropinirole HCl] 1 mg PO QID 06/04/17 Insulin Aspart [Novolog Flexpen] 0 unit SQ .SLIDINGSCALE 04/12/18 Insulin Glargine,Hum.rec.anlog [Lantus Insulin 100 Unit/1 ml 10 ml] 100 unit SQ Q12 04/12/18 Potassium Chloride [Klor-Con 10] 20 meq PO TID 04/12/18 Tamsulosin HCl [Flomax] 0.4 mg PO DAILY 04/12/18 Terazosin HCl [Hytrin] 8 mg PO QHS 04/12/18 Allergies/Adverse Reactions: Sulfa (Sulfonamide Antibiotics) Allergy (Mild, Verified 10/25/17 15:50) rash Review of Systems All systems: reviewed and no additional remarkable complaints except as stated Physical Exam Vital Signs: Temp Pulse Resp BP Pulse Ox 97.8 F 64 19 125/76 99 04/12/18 17:27 04/12/18 17:27 04/12/18 17:27 04/12/18 17:27 04/12/18 17:27 Intake & Output 04/11/18 04/12/18 04/13/18 06:59 06:59 06:59 Intake Total 3 Balance 3 General appearance: PRESENT: morbidly obese Eye exam: PRESENT: conjunctiva pink, PERRLA Mouth exam: PRESENT: moist Neck exam: PRESENT: full ROM Respiratory exam: PRESENT: clear to auscultation eladio, symmetrical, unlabored Cardiovascular exam: PRESENT: irregular rhythm, +S1, +S2 Pulses: PRESENT: normal radial pulses, normal dorsalis pedis pul Vascular exam: PRESENT: normal capillary refill GI/Abdominal exam: PRESENT: normal bowel sounds, soft. ABSENT: distended, firm , tenderness Rectal exam: PRESENT: deferred Extremities exam: PRESENT: full ROM, pedal edema, +1 edema Musculoskeletal exam: PRESENT: ambulatory, full ROM Neurological exam: PRESENT: alert, awake, oriented to person, oriented to place , oriented to time, oriented to situation Psychiatric exam: PRESENT: appropriate affect Skin exam: PRESENT: dry, intact, normal color, warm Results Laboratory Results: 04/12/18 17:05 04/12/18 17:05 Potassium 3.1 L 04/12/18 04/12/18 15:30 15:30 Creatine Kinase 129 Troponin I 0.041 Impressions: Chest X-Ray 04/12/18 11:30 IMPRESSION: CARDIAC ENLARGEMENT WITHOUT FAILURE. Status: Imported from PACS Assessment & Plan - Diagnosis (1) Hypokalemia Is this a current diagnosis for this admission?: Yes Plan: Secondary to Lasix use and GI loss (vomiting/diarrhea) No other identifiable metabolic, infectious, cardiac explanation for symptoms Serum potassium 2.7 Replace with IV and p.o. KCl Recheck potassium level tonight Home dose Lasix currently on hold (2) Weakness Is this a current diagnosis for this admission?: Yes Plan: Patient endorses generalized weakness starting this morning Likely secondary to hypokalemia stemming from Lasix use and GI loss (vomiting/ diarrhea) No other identifiable metabolic, infectious, cardiac explanation for symptoms Remaining plan as above (3) Acute renal failure Qualifiers: Acute renal failure type: unspecified Qualified Code(s): N17.9 - Acute kidney failure, unspecified Is this a current diagnosis for this admission?: Yes Plan: Secondary to hypovolemia stemming from vomiting, diarrhea, and lasix use 4 times per day Creatinine 1.4, baseline 0.8-1.1 500mL IV bolus in ED Diabetic diet, encourage PO fluid intake Significant history of heart disease (CABG x 2 and CAD), avoid volume overload with IVF (4) Chest pain Qualifiers: Chest pain type: other chest pain Qualified Code(s): R07.89 - Other chest pain; R07.8 - Other chest pain Is this a current diagnosis for this admission?: Yes Plan: Patient endorses intermittent episodes of sharp left-sided chest pain that occurred yesterday Patient denies chest pain upon evaluation in the emergency department EKG demonstrates sinus bradycardia, irregular. No evidence of acute infarction or ischemia. Initial troponin 0.046, continue to trend 3 Check BNP in a.m. Check TSH in a.m. Aspirin therapy Statin therapy Cardiology consulted No plan for echo or stress test at this time. (5) HTN (hypertension) Qualifiers: Hypertension type: essential hypertension Qualified Code(s): I10 - Essential (primary) hypertension Is this a current diagnosis for this admission?: Yes Plan: Patient endorses history of hypertension He has been remained relatively normotensive while inpatient Home dose furosemide on hold due to hypokalemia Continue home dose carvedilol Continue aspirin therapy Continue home dose metolazone Continue home dose telmisartan (6) HLD (hyperlipidemia) Is this a current diagnosis for this admission?: Yes Plan: Patient endorses history of HLD Continue home dose statin Check lipid profile in a.m. (7) CAD (coronary artery disease) Qualifiers: Coronary Disease-Associated Artery/Lesion type: bypass graft [place] vs. transplanted heart: [place] heart Associated angina: without angina Qualified Code(s): I25.810 - Atherosclerosis of coronary artery bypass graft(s) without angina pectoris Is this a current diagnosis for this admission?: Yes Plan: Patient endorses history of coronary artery disease, previous CABG 2 Continue aspirin therapy Continue statin therapy (8) Diabetes Is this a current diagnosis for this admission?: Yes Plan: Patient endorses history of diabetes. Accu-Cheks before meals at bedtime. Humalog sliding scale insulin. Continue home dose Lantus 100 units twice daily (this provider verified dose with patient's pharmacy) Check HGB A1c in a.m. - Time Time Spent: 30 to 50 Minutes Anticipated discharge: Home - Inpatient Certification Based on my medical assessment, after consideration of the patient's comorbidities, presenting symptoms, or acuity I expect that the services needed warrant INPATIENT care.: Yes I certify that my determination is in accordance with my understanding of Medicare's requirements for reasonable and necessary INPATIENT services [42 CFR 412.3e].: Yes Medical Necessity: Risk of Complication if Not Cared For in Hospital - Plan Summary Plan Summary: Continue potassium replacement. Monitor serial troponins. Follow-up EKG in a.m. Cardiology consult.
--- NOTE | 2018-04-13 00:51 | EKG REPORT ---
SEVERITY:- ABNORMAL ECG - SINUS RHYTHM RBBB AND LAFB PROBABLE LEFT VENTRICULAR HYPERTROPHY : Confirmed by: Farrah Cruz MD 13-Apr-2018 00:50:20
[2018-04-13 03:34] LABS: HEMOGLOBIN 11.6 g/dL (13.5-17.0); MEAN CORPUSCULAR HEMOGLOBIN 30.6 pg (27.0-33.4); MEAN CORPUSCULAR VOLUME 87 fl (80-97); PLATELET COUNT 143 10^3/uL (150-450); RED BLOOD COUNT 3.78 10^6/uL (4.35-5.55); RED CELL DISTRIBUTION WIDTH 14.2 % (11.5-14.0); WHITE BLOOD COUNT 8.1 10^3/uL (4.0-10.5)
[2018-04-13 05:09] LABS: ALANINE AMINOTRANSFERASE 28 U/L (21-72); ALBUMIN 3.4 g/dL (3.5-5.0); ALKALINE PHOSPHATASE 92 U/L (38-126); AMYLASE 37 U/L (30-110); ANION GAP 11 (5-19); ASPARTATE AMINO TRANSFERASE 16 U/L (17-59); BILIRUBIN,DIRECT 0.3 mg/dL (0.0-0.4); BILIRUBIN,TOTAL 0.5 mg/dL (0.2-1.3); BLOOD UREA NITROGEN 24 mg/dL (7-20); CALCIUM 8.5 mg/dL (8.4-10.2); CARBON DIOXIDE 31 mmol/L (22-30); CHLORIDE 97 mmol/L (98-107); GLUCOSE 257 mg/dL (75-110); SODIUM 139.3 mmol/L (137-145); TOTAL PROTEIN 5.7 g/dL (6.3-8.2)
[2018-04-13 05:19] LABS: POTASSIUM 2.9 mmol/L (3.6-5.0)
[2018-04-13] MEDS: POTASSIUM CHLORIDE 20 MEQ/50 ML RTU IV SCH ×2 (05:48→12:39)
[2018-04-13] MEDS ORDERED: POTASSIUM CHLORIDE 10 MEQ CAPSULE.ER PO ONE (06:00)
[2018-04-13] MEDS: INSULIN LISPRO 100 UNIT/ML 3 ML VIAL SUBCUT PRN ×4 (06:46→22:01)
[2018-04-13] MEDS ORDERED: NORMAL SALINE 1000 ML 1,000 ML IV PRN (08:04)
--- NOTE | 2018-04-13 08:14 | PDOC PROGRESS REPORT ---
Subjective Progress Note for:: 04/13/18 Subjective:: The patient states to feel better. He still does not feel well but he denies any further lightheadedness nausea vomiting or diarrhea. He is presently receiving supplemental potassium. is at the bedside with multiple questions. Reason For Visit: HYPOKALEMIA,WEAKNESS,HYPOTENSION Physical Exam Vital Signs: Temp Pulse Resp BP Pulse Ox 97.7 F 72 18 123/52 L 97 04/13/18 03:25 04/13/18 03:25 04/13/18 03:25 04/13/18 03:25 04/13/18 03:25 Intake & Output 04/12/18 04/13/18 04/14/18 06:59 06:59 06:59 Intake Total 153 Output Total 500 Balance -347 General appearance: PRESENT: mild distress Head exam: PRESENT: atraumatic Eye exam: PRESENT: conjunctiva pink Neck exam: PRESENT: carotid bruit. ABSENT: JVD Respiratory exam: PRESENT: rhonchi Cardiovascular exam: PRESENT: irregular rhythm, +S1, +S2 GI/Abdominal exam: PRESENT: normal bowel sounds, soft Extremities exam: PRESENT: tenderness Musculoskeletal exam: PRESENT: ambulatory Neurological exam: PRESENT: alert, awake Results Laboratory Results: 04/13/18 03:19 04/13/18 03:19 04/12/18 04/13/18 04/13/18 17:05 03:19 03:19 WBC 8.1 RBC 3.78 L Hgb 11.6 L Hct 33.0 L MCV 87 MCH 30.6 MCHC 35.0 RDW 14.2 H Plt Count 143 L Sodium 139.3 Potassium 3.1 L 2.9 L* Chloride 97 L Carbon Dioxide 31 H Anion Gap 11 BUN 24 H Creatinine 1.33 H Est GFR ( Amer) > 60 Est GFR (Non-Af Amer) 53 L Glucose 257 H Calcium 8.5 Total Bilirubin 0.5 AST 16 L ALT 28 Alkaline Phosphatase 92 Ammonia Total Protein 5.7 L Albumin 3.4 L Amylase 37 TSH 04/13/18 04/13/18 03:19 03:19 WBC RBC Hgb Hct MCV MCH MCHC RDW Plt Count Sodium Potassium Chloride Carbon Dioxide Anion Gap BUN Creatinine Est GFR ( Amer) Est GFR (Non-Af Amer) Glucose Calcium Total Bilirubin AST ALT Alkaline Phosphatase Ammonia < 8.7 L Total Protein Albumin Amylase TSH 1.42 04/12/18 04/12/18 04/12/18 15:30 15:30 20:45 Creatine Kinase 129 138 Troponin I 0.041 NT-Pro-B Natriuret Pep 04/12/18 04/13/18 04/13/18 20:45 03:19 03:19 Creatine Kinase 106 Troponin I 0.039 0.036 NT-Pro-B Natriuret Pep 04/13/18 03:19 Creatine Kinase Troponin I NT-Pro-B Natriuret Pep 428 Impressions: Chest X-Ray 04/12/18 11:30 IMPRESSION: CARDIAC ENLARGEMENT WITHOUT FAILURE. Assessment & Plan - Diagnosis (1) Food poisoning Is this a current diagnosis for this admission?: Yes Plan: The patient had a episode of weakness nausea vomiting and diarrhea. The possibility of food poisoning has to be considered (2) Diabetes Qualifiers: Diabetes mellitus type: type 2 Chronic kidney disease stage: stage 3 ( moderate) Is this a current diagnosis for this admission?: Yes Plan: High blood sugars. The patient is very noncompliant with his diet. (3) Hypokalemia Is this a current diagnosis for this admission?: Yes Plan: We will supplement the potassium and stop the diuretics (4) Hypotension Qualifiers: Hypotension type: unspecified hypotension type Qualified Code(s): I95.9 - Hypotension, unspecified Is this a current diagnosis for this admission?: Yes Plan: Most probably related to vomiting and diarrhea (5) Acute renal failure Qualifiers: Acute renal failure type: unspecified Qualified Code(s): N17.9 - Acute kidney failure, unspecified Is this a current diagnosis for this admission?: Yes Plan: Probably related to dehydration. We will continue with IV fluids (6) CAD (coronary artery disease) Qualifiers: Coronary Disease-Associated Artery/Lesion type: bypass graft [place] vs. transplanted heart: [place] heart Associated angina: without angina Qualified Code(s): I25.810 - Atherosclerosis of coronary artery bypass graft(s) without angina pectoris Is this a current diagnosis for this admission?: Yes
--- NOTE | 2018-04-13 09:10 | RADIOLOGY REPORT (SQ) ---
EXAM DESCRIPTION: CHEST 2 VIEWS COMPLETED DATE/TIME: 04/13/2018 8:40 am REASON FOR STUDY: sob COMPARISON: 04/12/2018 EXAM PARAMETERS: NUMBER OF VIEWS: two views TECHNIQUE: Digital Frontal and Lateral radiographic views of the chest acquired. RADIATION DOSE: NA LIMITATIONS: none FINDINGS: LUNGS AND PLEURA: No opacities, masses or pneumothorax. No pleural effusion. MEDIASTINUM AND HILAR STRUCTURES: No masses or contour abnormalities. HEART AND VASCULAR STRUCTURES: Mild cardiomegaly. Minimal vascular congestion. BONES: No acute findings. HARDWARE: Status post CABG and atrial appendage clipping. OTHER: No other significant finding. IMPRESSION: Mild cardiomegaly and minimal vascular congestion. TECHNICAL DOCUMENTATION: JOB ID: [id number] [email or web address]- All Rights Reserved Reading location - IP/workstation name: [email or web address]
[2018-04-13] MEDS: INSULIN GLARGINE,HUM.REC.ANLOG 1,000 UNIT/10 ML UNIT SUBCUT SCH ×2 (09:18→22:00)
[2018-04-13] MEDS: DABIGATRAN ETEXILATE 150 MG CAPSULE PO SCH ×2 (09:18→21:54)
[2018-04-13] MEDS: FAMOTIDINE 20 MG TABLET PO SCH ×2 (09:19→21:51)
[2018-04-13] MEDS: MAGNESIUM OXIDE 400 MG TABLET PO SCH ×2 (09:20→17:37)
[2018-04-13] MEDS: ASPIRIN 81 MG TABLET, ENT COATED PO SCH (09:21)
[2018-04-13] MEDS: TAMSULOSIN HCL 0.4 MG CAP.SR.24H PO SCH (09:21)
[2018-04-13] MEDS: CARVEDILOL 12.5 MG TABLET PO SCH ×2 (09:22→21:51)
[2018-04-13] MEDS: CHOLECALCIFEROL (D3) 400 UNIT TABLET PO SCH (09:24)
[2018-04-13] MEDS: LOSARTAN POTASSIUM 50 MG TABLET PO SCH (09:24)
--- NOTE | 2018-04-13 09:55 | EKG REPORT ---
SEVERITY:- ABNORMAL ECG - SINUS RHYTHM RIGHT BUNDLE BRANCH BLOCK : Confirmed by: Contreras Boyle 13-Apr-2018 09:54:16
[2018-04-13] MEDS ORDERED: ENOXAPARIN SODIUM INJ 30 MG/0.3 ML DISP.SYRIN SUBCUT SCH (10:00)
[2018-04-13] MEDS ORDERED: MAGNESIUM OXIDE 400 MG TABLET PO SCH (10:00)
[2018-04-13] MEDS ORDERED: ASPIRIN 81 MG TABLET, ENT COATED PO SCH (10:00)
[2018-04-13 10:02] LABS: CREATINE KINASE MB 2.17 ng/mL (<4.55); TROPONIN I 0.029 ng/mL
--- NOTE | 2018-04-13 11:32 | Physician Advisory Note ---
Physician Advisor ProgressNote .: Pursuant to the plan for [facility], I have reviewed the medical record for this patient. Physician Advisor Statement: Beautiful documentation of ARF w/baseline Cr & cause. Please consider documenting, if you agree: 1. "chronic diastolic heart failure" & "[mild] pulmonary HTN" - ECHO 2012 shows diastolic dysfunction, nl EF, mild pulm HTN. CXR= cardiomegaly. - If pt has never had CHF sx yet, current criteria call that "stage B" chronic diast CHF. 2. "obstructive sleep apnea", or ... (reason pt uses CPAP) 3. Medical necessity: reasons pt not safe for d/c today, then may change to Inpatient status. Status: Medicare pt, still quite hypokalemic & w/continued ARF/Cr not back to baseline, attg continuing IVF - if not safe for d/c later today, then appropriate for Inpt status. Thanks! CK
[2018-04-13 11:47] LABS: ANION GAP 12 (5-19); BLOOD UREA NITROGEN 23 mg/dL (7-20); CALCIUM 8.5 mg/dL (8.4-10.2); CARBON DIOXIDE 28 mmol/L (22-30); CHLORIDE 98 mmol/L (98-107); GLUCOSE 313 mg/dL (75-110); POTASSIUM 3.3 mmol/L (3.6-5.0)
[2018-04-13 15:41] LABS: ANION GAP 9 (5-19); BLOOD UREA NITROGEN 22 mg/dL (7-20); CALCIUM 8.4 mg/dL (8.4-10.2); CARBON DIOXIDE 33 mmol/L (22-30); CHLORIDE 97 mmol/L (98-107); GLUCOSE 302 mg/dL (75-110); POTASSIUM 3.6 mmol/L (3.6-5.0); SODIUM 138.5 mmol/L (137-145)
[2018-04-13 15:52] LABS: CREATINE KINASE MB 2.73 ng/mL (<4.55); TROPONIN I 0.03 ng/mL
[2018-04-13 20:48] LABS: CREATINE KINASE MB 2.75 ng/mL (<4.55); TROPONIN I 0.032 ng/mL
[2018-04-13] MEDS: POTASSIUM CHLORIDE 10 MEQ CAPSULE.ER PO SCH (21:49)
[2018-04-13] MEDS: DOXAZOSIN MESYLATE 4 MG TABLET PO SCH (21:50)
[2018-04-13] MEDS: PRAMIPEXOLE DI-HCL 0.5 MG TABLET PO SCH (21:50)
[2018-04-13] MEDS: ATORVASTATIN CALCIUM 40 MG TABLET PO SCH (21:51)
[2018-04-14 07:06] LABS: ABSOLUTE BASOPHILS # (AUTO) 0.1 10^3/uL (0.0-0.2); ABSOLUTE EOSINOPHILS # (AUTO) 0.3 10^3/uL (0.0-0.6); ABSOLUTE LYMPHOCYTES (AUTO) 1.1 10^3/uL (0.5-4.7); ABSOLUTE MONOCYTES (AUTO) 0.7 10^3/uL (0.1-1.4); ABSOLUTE NEUT (AUTO) 6.9 10^3/uL (1.7-8.2); EOSINOPHILS % (AUTO) 3.3 % (0-6); HEMATOCRIT 31.4 % (37.9-51.0); HEMOGLOBIN 11.3 g/dL (13.5-17.0); LYMPHOCYTES % (AUTO) 11.9 % (13-45); MEAN CORPUSCULAR HEMOGLOBIN 31.1 pg (27.0-33.4); MEAN CORPUSCULAR HGB CONC 35.9 g/dL (32.0-36.0); MEAN CORPUSCULAR VOLUME 86 fl (80-97); MONOCYTES % (AUTO) 7.6 % (3-13); PLATELET COUNT 129 10^3/uL (150-450); RED BLOOD COUNT 3.63 10^6/uL (4.35-5.55); RED CELL DISTRIBUTION WIDTH 14.1 % (11.5-14.0); SEGMENTED NEUTROPHILS % (AUTO) 76.2 % (42-78); TOTAL CELLS COUNTED % (AUTO) 100 %
[2018-04-14 07:23] LABS: ALANINE AMINOTRANSFERASE 28 U/L (21-72); ALBUMIN 3.5 g/dL (3.5-5.0); ALKALINE PHOSPHATASE 91 U/L (38-126); ANION GAP 10 (5-19); ASPARTATE AMINO TRANSFERASE 13 U/L (17-59); BILIRUBIN,DIRECT 0.2 mg/dL (0.0-0.4); BILIRUBIN,TOTAL 0.7 mg/dL (0.2-1.3); BLOOD UREA NITROGEN 18 mg/dL (7-20); CALCIUM 8.3 mg/dL (8.4-10.2); CARBON DIOXIDE 29 mmol/L (22-30); CHLORIDE 101 mmol/L (98-107); GLUCOSE 175 mg/dL (75-110); POTASSIUM 3.4 mmol/L (3.6-5.0); SODIUM 140.3 mmol/L (137-145); TOTAL PROTEIN 5.7 g/dL (6.3-8.2)
--- NOTE | 2018-04-14 08:11 | PDOC PROGRESS REPORT ---
Subjective Progress Note for:: 04/14/18 Subjective:: The patient states to feel much better. His blood sugars are better controlled. His potassium is better controlled. Long discussion about the need for diabetic diet. Reason For Visit: HYPOKALEMIA,WEAKNESS,HYPOTENSION Physical Exam Vital Signs: Temp Pulse Resp BP Pulse Ox 98.5 F 62 20 120/65 100 04/13/18 23:53 04/14/18 02:00 04/13/18 23:53 04/13/18 23:53 04/13/18 23:53 Intake & Output 04/13/18 04/14/18 04/15/18 06:59 06:59 06:59 Intake Total 153 2226 Output Total 500 1100 Balance -347 1126 Weight 135.8 kg General appearance: PRESENT: mild distress Head exam: PRESENT: atraumatic Eye exam: PRESENT: conjunctiva pink Neck exam: ABSENT: carotid bruit, JVD Respiratory exam: PRESENT: crackles Cardiovascular exam: PRESENT: irregular rhythm, +S1, +S2 Pulses: PRESENT: +1 pedal pulses bilateral GI/Abdominal exam: PRESENT: normal bowel sounds, soft Extremities exam: PRESENT: full ROM Musculoskeletal exam: PRESENT: ambulatory Neurological exam: PRESENT: alert, awake Results Laboratory Results: 04/14/18 06:49 04/14/18 06:49 04/13/18 04/13/18 04/14/18 08:50 14:42 06:49 WBC 9.0 RBC 3.63 L Hgb 11.3 L Hct 31.4 L MCV 86 MCH 31.1 MCHC 35.9 RDW 14.1 H Plt Count 129 L Seg Neutrophils % 76.2 Lymphocytes % 11.9 L Monocytes % 7.6 Eosinophils % 3.3 Basophils % 1.0 Absolute Neutrophils 6.9 Absolute Lymphocytes 1.1 Absolute Monocytes 0.7 Absolute Eosinophils 0.3 Absolute Basophils 0.1 Sodium 138.0 138.5 Potassium 3.3 L 3.6 Chloride 98 97 L Carbon Dioxide 28 33 H Anion Gap 12 9 BUN 23 H 22 H Creatinine 1.18 1.14 Est GFR ( Amer) > 60 > 60 Est GFR (Non-Af Amer) > 60 > 60 Glucose 313 H 302 H Calcium 8.5 8.4 Magnesium Total Bilirubin AST ALT Alkaline Phosphatase Total Protein Albumin 04/14/18 06:49 WBC RBC Hgb Hct MCV MCH MCHC RDW Plt Count Seg Neutrophils % Lymphocytes % Monocytes % Eosinophils % Basophils % Absolute Neutrophils Absolute Lymphocytes Absolute Monocytes Absolute Eosinophils Absolute Basophils Sodium 140.3 Potassium 3.4 L Chloride 101 Carbon Dioxide 29 Anion Gap 10 BUN 18 Creatinine 0.95 Est GFR ( Amer) > 60 Est GFR (Non-Af Amer) > 60 Glucose 175 H Calcium 8.3 L Magnesium 2.5 H Total Bilirubin 0.7 AST 13 L ALT 28 Alkaline Phosphatase 91 Total Protein 5.7 L Albumin 3.5 04/12/18 04/12/18 04/12/18 15:30 15:30 20:45 Creatine Kinase 129 138 CK-MB (CK-2) Troponin I 0.041 NT-Pro-B Natriuret Pep 04/12/18 04/13/18 04/13/18 20:45 03:19 03:19 Creatine Kinase 106 CK-MB (CK-2) Troponin I 0.039 0.036 NT-Pro-B Natriuret Pep 04/13/18 04/13/18 04/13/18 03:19 08:50 08:50 Creatine Kinase 95 CK-MB (CK-2) 2.17 Troponin I 0.029 NT-Pro-B Natriuret Pep 428 04/13/18 04/13/18 04/13/18 14:42 14:42 20:11 Creatine Kinase 100 105 CK-MB (CK-2) 2.73 Troponin I 0.030 NT-Pro-B Natriuret Pep 04/13/18 20:11 Creatine Kinase CK-MB (CK-2) 2.75 Troponin I 0.032 NT-Pro-B Natriuret Pep Impressions: Chest X-Ray 04/13/18 00:00 IMPRESSION: Mild cardiomegaly and minimal vascular congestion. Assessment & Plan - Diagnosis (1) Food poisoning Is this a current diagnosis for this admission?: Yes Plan: The patient had a episode of weakness nausea vomiting and diarrhea. The possibility of food poisoning has to be considered (2) Diabetes Qualifiers: Diabetes mellitus type: type 2 Chronic kidney disease stage: stage 3 ( moderate) Is this a current diagnosis for this admission?: Yes Plan: Slightly better controlled. (3) Hypokalemia Is this a current diagnosis for this admission?: Yes Plan: We will supplement the potassium and stop the diuretics (4) Hypotension Qualifiers: Hypotension type: unspecified hypotension type Qualified Code(s): I95.9 - Hypotension, unspecified Is this a current diagnosis for this admission?: Yes (5) Acute renal failure Qualifiers: Acute renal failure type: unspecified Qualified Code(s): N17.9 - Acute kidney failure, unspecified Is this a current diagnosis for this admission?: Yes Plan: Probably related to dehydration. We will continue with IV fluids (6) CAD (coronary artery disease) Qualifiers: Coronary Disease-Associated Artery/Lesion type: bypass graft [place] vs. transplanted heart: [place] heart Associated angina: without angina Qualified Code(s): I25.810 - Atherosclerosis of coronary artery bypass graft(s) without angina pectoris Is this a current diagnosis for this admission?: Yes Plan: Stable continue current medications (7) Chronic diastolic heart failure Is this a current diagnosis for this admission?: Yes Plan: We will continue with current medications and dietary restrictions (8) Obstructive sleep apnea Is this a current diagnosis for this admission?: Yes Plan: Continue CPAP will need to work on weight loss
[2018-04-14] MEDS: INSULIN LISPRO 100 UNIT/ML 3 ML VIAL SUBCUT PRN ×4 (08:32→21:23)
[2018-04-14] MEDS: CARVEDILOL 12.5 MG TABLET PO SCH ×2 (10:38→21:22)
[2018-04-14] MEDS: POTASSIUM CHLORIDE 10 MEQ CAPSULE.ER PO SCH ×2 (10:38→21:23)
[2018-04-14] MEDS: LOSARTAN POTASSIUM 50 MG TABLET PO SCH (10:38)
[2018-04-14] MEDS: INSULIN GLARGINE,HUM.REC.ANLOG 1,000 UNIT/10 ML UNIT SUBCUT SCH ×2 (10:38→21:22)
[2018-04-14] MEDS: FAMOTIDINE 20 MG TABLET PO SCH ×2 (10:38→21:23)
[2018-04-14] MEDS: ASPIRIN 81 MG TABLET, ENT COATED PO SCH (10:39)
[2018-04-14] MEDS: TAMSULOSIN HCL 0.4 MG CAP.SR.24H PO SCH (10:39)
[2018-04-14] MEDS: MAGNESIUM OXIDE 400 MG TABLET PO SCH ×2 (10:39→17:54)
[2018-04-14] MEDS: DABIGATRAN ETEXILATE 150 MG CAPSULE PO SCH ×2 (10:39→21:22)
[2018-04-14] MEDS: CHOLECALCIFEROL (D3) 400 UNIT TABLET PO SCH (10:39)
[2018-04-14] MEDS: ATORVASTATIN CALCIUM 40 MG TABLET PO SCH (21:22)
[2018-04-14] MEDS: PRAMIPEXOLE DI-HCL 0.5 MG TABLET PO SCH (21:23)
[2018-04-14] MEDS: DOXAZOSIN MESYLATE 4 MG TABLET PO SCH (21:23)
[2018-04-15 05:57] LABS: ANION GAP 10 (5-19); BLOOD UREA NITROGEN 17 mg/dL (7-20); CALCIUM 8.8 mg/dL (8.4-10.2); CARBON DIOXIDE 30 mmol/L (22-30); CHLORIDE 101 mmol/L (98-107); GLUCOSE 99 mg/dL (75-110); POTASSIUM 3.7 mmol/L (3.6-5.0); SODIUM 140.8 mmol/L (137-145)
--- NOTE | 2018-04-15 07:59 | PDOC DISCHARGE SUMMARY ---
General - Admit/Disc Date/PCP Admission Date/Primary Care Provider: 04/12/18 14:37 MADHAVI GREEN, Discharge Date: 04/15/18 - Discharge Diagnosis (1) Food poisoning Is this a current diagnosis for this admission?: Yes Summary: Resolved with hydration (2) Diabetes Is this a current diagnosis for this admission?: Yes Summary: Better controlled with diet and insulin (3) Hypokalemia Is this a current diagnosis for this admission?: Yes Summary: Resolved with stopping of diuretics and supplementing with potassium (4) Hypotension Is this a current diagnosis for this admission?: Yes Summary: Resolved with rehydration (5) Acute renal failure Is this a current diagnosis for this admission?: Yes Summary: Resolved with rehydration (6) CAD (coronary artery disease) Is this a current diagnosis for this admission?: Yes Summary: Continue current medications follow-up with Dr. Cruz (7) Chronic diastolic heart failure Is this a current diagnosis for this admission?: Yes Summary: Continue current medication and follow-up with Dr. Cruz (8) Obstructive sleep apnea Is this a current diagnosis for this admission?: Yes Summary: Continue CPAP - Additional Information Resuscitation Status: Full Code Discharge Diet: Cardiac, Diabetic Discharge Activity: Activity As Tolerated Home Medications: Aspirin [Ecotrin 81 mg EC Tablet] 81 mg PO DAILY 10/26/11 Atorvastatin Calcium [Lipitor 40 mg Tablet] 40 mg PO QHS 10/26/11 Cholecalciferol (Vitamin D3) [Vitamin D3] 800 unit PO DAILY 11/23/15 Magnesium Oxide [Mag-Ox 400 mg Tablet] 400 mg PO DAILY 11/23/15 Pramipexole Di-HCl [Pramipexole Dihydrochloride] 2 mg PO QHS 11/23/15 Telmisartan 80 mg PO DAILY 11/23/15 Carvedilol [Coreg 12.5 mg Tablet] 25 mg PO Q12 #0 tablet 11/26/15 Dabigatran Etexilate Mesylate [Pradaxa 150 mg Capsule] 150 mg PO Q12 01/09/16 Insulin Aspart [Novolog Flexpen] 0 unit SQ .SLIDINGSCALE 04/12/18 Insulin Glargine,Hum.rec.anlog [Lantus Insulin 100 Unit/1 ml 10 ml] 100 unit SQ Q12 04/12/18 Potassium Chloride [Klor-Con 10] 20 meq PO TID 04/12/18 Tamsulosin HCl [Flomax] 0.4 mg PO DAILY 04/12/18 History of Present Illness History of Present Illness: JAREN SIERRA is a 68 year old male Hospital Course Hospital Course: The patient did well after the admission. He needs cardiac enzymes have remained stable. He is EKG was unremarkable. He had IV fluids with rehydration which has improved his symptomatology. He did not have any recurrence of nausea vomiting or diarrhea. His blood sugars were much better controlled on the day of discharge she he appeared comfortable long discussion about diet and exercise Physical Exam Vital Signs: Temp Pulse Resp BP Pulse Ox 97.6 F 92 16 101/58 L 98 04/15/18 03:38 04/15/18 03:38 04/15/18 03:38 04/15/18 03:38 04/15/18 03:38 Intake & Output 04/14/18 04/15/18 04/16/18 06:59 06:59 06:59 Intake Total 2226 1040 Output Total 1100 1000 Balance 1126 40 Weight 136.1 kg 136.9 kg General appearance: PRESENT: no acute distress Head exam: PRESENT: atraumatic Eye exam: PRESENT: conjunctiva pink Neck exam: ABSENT: carotid bruit, JVD Respiratory exam: PRESENT: crackles Cardiovascular exam: PRESENT: irregular rhythm, +S1, +S2 Pulses: PRESENT: +1 pedal pulses bilateral GI/Abdominal exam: PRESENT: normal bowel sounds, soft Extremities exam: PRESENT: full ROM Musculoskeletal exam: PRESENT: full ROM Neurological exam: PRESENT: alert, awake Results Laboratory Results: 04/14/18 06:49 04/15/18 04:11 04/15/18 04:11 Sodium 140.8 Potassium 3.7 Chloride 101 Carbon Dioxide 30 Anion Gap 10 BUN 17 Creatinine 1.09 Est GFR ( Amer) > 60 Est GFR (Non-Af Amer) > 60 Glucose 99 Calcium 8.8 04/12/18 04/12/18 04/12/18 15:30 15:30 20:45 Creatine Kinase 129 138 CK-MB (CK-2) Troponin I 0.041 NT-Pro-B Natriuret Pep 04/12/18 04/13/18 04/13/18 20:45 03:19 03:19 Creatine Kinase 106 CK-MB (CK-2) Troponin I 0.039 0.036 NT-Pro-B Natriuret Pep 04/13/18 04/13/18 04/13/18 03:19 08:50 08:50 Creatine Kinase 95 CK-MB (CK-2) 2.17 Troponin I 0.029 NT-Pro-B Natriuret Pep 428 04/13/18 04/13/18 04/13/18 14:42 14:42 20:11 Creatine Kinase 100 105 CK-MB (CK-2) 2.73 Troponin I 0.030 NT-Pro-B Natriuret Pep 04/13/18 20:11 Creatine Kinase CK-MB (CK-2) 2.75 Troponin I 0.032 NT-Pro-B Natriuret Pep Impressions: Chest X-Ray 04/13/18 00:00 IMPRESSION: Mild cardiomegaly and minimal vascular congestion. Qualifiers - * PATIENT BEING DISCHARGED WITH ANY OF THE FOLLOWING DIAGNOSIS: No
[2018-04-15] MEDS: CARVEDILOL 12.5 MG TABLET PO SCH (09:49)
[2018-04-15] MEDS: DABIGATRAN ETEXILATE 150 MG CAPSULE PO SCH (09:50)
[2018-04-15] MEDS: LOSARTAN POTASSIUM 50 MG TABLET PO SCH (09:50)
[2018-04-15] MEDS: CHOLECALCIFEROL (D3) 400 UNIT TABLET PO SCH (09:52)
[2018-04-15] MEDS: ASPIRIN 81 MG TABLET, ENT COATED PO SCH (09:52)
[2018-04-15] MEDS: POTASSIUM CHLORIDE 10 MEQ CAPSULE.ER PO SCH (09:53)
[2018-04-15] MEDS: MAGNESIUM OXIDE 400 MG TABLET PO SCH (09:53)
[2018-04-15] MEDS: FAMOTIDINE 20 MG TABLET PO SCH (09:53)
[2018-04-15] MEDS: TAMSULOSIN HCL 0.4 MG CAP.SR.24H PO SCH (09:53)
[2018-04-15] MEDS: INSULIN GLARGINE,HUM.REC.ANLOG 1,000 UNIT/10 ML UNIT SUBCUT SCH (09:54)
[2018-04-15 10:01] VITALS: BP 123/66
== END 2018-04-15 11:01 | disposition home or self-care (01) | DRG 641 ==
LOC: ER 11:11 → UNDOADMIN 13:47 → EH 13:47 → 4N 17:14
PROVIDERS: ADMIT Student in an Organized Health Care Education/Training Program; ATTEND Internal Medicine
DX: E87.6 Hypokalemia (principal); N17.9 Acute kidney failure, unspecified; I13.0 Hypertensive heart and chronic kidney disease with heart failure and stage 1 through stage 4 chronic kidney disease, or unspecified chronic kidney disease; I50.32 Chronic diastolic (congestive) heart failure; I25.810 Atherosclerosis of coronary artery bypass graft(s) without angina pectoris; I95.9 Hypotension, unspecified; T62.91XA Toxic effect of unspecified noxious substance eaten as food, accidental (unintentional), initial encounter; R11.2 Nausea with vomiting, unspecified; I48.91 Unspecified atrial fibrillation; E11.22 Type 2 diabetes mellitus with diabetic chronic kidney disease; N18.3 Chronic kidney disease, stage 3 (moderate); E78.00 Pure hypercholesterolemia, unspecified; I73.9 Peripheral vascular disease, unspecified; K21.9 Gastro-esophageal reflux disease without esophagitis; G47.33 Obstructive sleep apnea (adult) (pediatric); M10.9 Gout, unspecified; Z79.82 Long term (current) use of aspirin; Z79.4 Long term (current) use of insulin; Z79.899 Other long term (current) drug therapy
CPT/HCPCS: 36415; 71046; 80048; 80053; 82140; 82150; 82550; 82553; 82962; 83036; 83690; 83735; 83880; 84132; 84443; 84484; 85025; 85027; 85610; 85730; 93005; 93010; 96361; 96365; 99285; J1815; J3480; J3490; J7040

== ENCOUNTER 2018-04-26 08:21 | Inpatient (IN) | payer MEDICARE, OTHER ==
[2018-04-26] MEDS ORDERED: ASPIRIN 81 MG TABLET, CHEWABLE PO ONE (09:13)
[2018-04-26] MEDS ORDERED: IPRATROPIUM/ALBUTEROL 0.5-2.5 MG/3 ML AMPUL NEB ONE (09:14)
--- NOTE | 2018-04-26 09:20 | ER Document Report ---
ED Cardiac - General Chief Complaint: Chest Pain Stated Complaint: CHEST DISCOMFORT Time Seen by Provider: 04/26/18 09:12 Mode of Arrival: Ambulatory Information source: Patient Notes: Chief complaint: Shortness of breath History of complain:( obtained from----patient) 68 years old male with a history of congestive heart failure, renal insufficiency, hypokalemia, was discharged from the hospital last week. Presents today with dyspnea, orthopnea , exertional dyspnea, midsternal chest pain earlier this morning. States that he has gained about 13 pounds since the discharge. His diuretics were discontinued after the discharge. He took only one tablet this morning. Denies any left arm numbness nausea vomiting palpitation or diaphoresis. Denies any fever chills or other constitutional symptoms Onset: Gradual Duration: Last 3-4 days more than usual Severity: Moderate to severe Quality: Dull Context: CHF Exacerbating factor and relieving factors: Any exertion or laying down REVIEW OF SYSTEMS: CONSTITUTIONAL : Denies fever, chills, or sweats. Denies recent illness. EENT: Denies eye, ear, throat, or mouth pain or symptoms. Denies nasal or sinus congestion or discharge. Denies throat, tongue, or mouth swelling or difficulty swallowing. CARDIOVASCULAR: Denies chest pain. Denies palpitations or racing or irregular heart beat. Denies ankle edema. RESPIRATORY: GASTROINTESTINAL: Denies distention. Denies nausea, vomiting, or diarrhea. Denies blood in vomitus, stools, or per rectum. Denies black, tarry stools. Denies constipation. GENITOURINARY: Denies difficulty urinating, painful urination, burning, frequency, blood in urine, or discharge. FEMALE GENITOURINARY: Denies vaginal bleeding, heavy or abnormal periods, irregular periods. Denies vaginal discharge or odor. MUSCULOSKELETAL: Denies back or neck pain or stiffness. Denies joint pain or swelling. SKIN: Denies rash, lesions or sores. HEMATOLOGIC : Denies easy bruising or bleeding. LYMPHATIC: Denies swollen, enlarged glands. NEUROLOGICAL: Denies confusion or altered mental status. Denies passing out or loss of consciousness. Denies dizziness or lightheadedness. Denies headache. Denies weakness or paralysis or loss of use of either side. Denies problems with gait or speech. Denies sensory loss, numbness, or tingling. Denies seizures. PSYCHIATRIC: Denies anxiety or stress. Denies depression, suicidal ideation, or homicidal ideation. ALL OTHER SYSTEMS REVIEWED AND NEGATIVE. PHYSICAL EXAMINATION: GENERAL: Well-appearing, well-nourished and in no acute distress. HEAD: Atraumatic, normocephalic. EYES: Pupils equal round and reactive to light, extraocular movements intact, conjunctiva are normal. ENT: Nares patent, oropharynx clear without exudates. Moist mucous membranes. NECK: Normal range of motion, supple without lymphadenopathy LUNGS: Breath sounds clear to auscultation bilaterally and equal. Basal rales heard, expiratory wheeze over the rest of the lung field. HEART: Regular rate and rhythm without murmurs ABDOMEN: Soft, nontender, nondistended abdomen. No guarding, no rebound. No masses appreciated. Examination of genitals-deferred Musculoskeletal: Normal range of motion, 1-2+ pitting edema over the lower extremity with chronic venous stasis dermatosis noted. NEUROLOGICAL: Cranial nerves grossly intact. Normal speech, normal gait. Normal sensory, motor exams PSYCH: Normal mood, normal affect. SKIN: Warm, Dry, normal turgor, no rashes or lesions noted. Dictation was performed using [employer] voice recognition software TRAVEL OUTSIDE OF THE [place] IN LAST 30 DAYS: No - HPI Notes: Dictated - Related Data Allergies/Adverse Reactions: Sulfa (Sulfonamide Antibiotics) Allergy (Mild, Verified 04/26/18 08:23) rash Past Medical History - Social History Smoking Status: Never Smoker Cigarette use (# per day): No Chew tobacco use (# tins/day): No Smoking Education Provided: No Frequency of alcohol use: None Drug Abuse: None Lives with: Family Family History: Reviewed & Not Pertinent, DM Patient has suicidal ideation: No Patient has homicidal ideation: No - Past Medical History Cardiac Medical History: Reports: Hx Atrial Fibrillation, Hx Coronary Artery Disease, Hx Hypercholesterolemia, Hx Hypertension, Hx Peripheral Vascular Disease - History of a renal vascular shunt for hypertension Denies: Hx Heart Attack Pulmonary Medical History: Reports: Hx Bronchitis, Hx Pneumonia, Hx Sleep Apnea Endocrine Medical History: Reports: Hx Diabetes Mellitus Type 1, Hx Diabetes Mellitus Type 2 - insulin dependant Renal/ Medical History: Denies: Hx Peritoneal Dialysis GI Medical History: Reports: Hx Gastroesophageal Reflux Disease Musculoskeletal Medical History: Denies Hx Arthritis, Reports Hx Gout Psychiatric Medical History: Denies: Hx Depression Past Surgical History: Reports: Hx Cardiac Catheterization, Hx Cardiac Surgery - bypass 2015, Hx Coronary Artery Bypass Graft - x 2, Hx Coronary Stent, Hx Kidney (Renal Surgery) - stent placement, Hx Nose Surgery - SINUS, Hx Orthopedic Surgery - left shoulder 2011, back x 3 - Immunizations Hx Diphtheria, Pertussis, Tetanus Vaccination: Yes Hx Pneumococcal Vaccination: 09/29/07 Review of Systems - Review of Systems Notes: Dictated Physical Exam - Vital signs Vitals: Temp Pulse Resp BP Pulse Ox 97.8 F 71 20 165/94 H 98 04/26/18 08:35 04/26/18 08:35 04/26/18 08:35 04/26/18 08:35 04/26/18 08:35 - Notes Notes: Dictated Course - Vital Signs Vital signs: Temp Pulse Resp BP Pulse Ox 97.8 F 71 22 H 149/78 H 97 04/26/18 08:35 04/26/18 08:35 04/26/18 10:02 04/26/18 10:02 04/26/18 10:02 04/26/18 10:56 He was given DuoNeb, his case was discussed with hospitalist and currently being admitted - Laboratory Result Diagrams: 04/26/18 09:33 04/26/18 09:33 Laboratory results interpreted by me: 04/26/18 04/26/18 04/26/18 09:24 09:33 09:33 WBC 14.8 H RBC 4.13 L Hgb 12.1 L Hct 36.2 L RDW 14.2 H Abs Neuts (Manual) 11.4 H Sodium 145.3 H Potassium 3.2 L Glucose 56 L POC Glucose 60 L Creatine Kinase 187 H CK-MB (CK-2) NT-Pro-B Natriuret Pep 04/26/18 04/26/18 09:33 09:58 WBC RBC Hgb Hct RDW Abs Neuts (Manual) Sodium Potassium Glucose POC Glucose 113 H Creatine Kinase CK-MB (CK-2) 6.58 H NT-Pro-B Natriuret Pep 1680 H - Diagnostic Test Radiology reviewed: Reports reviewed - Chest x-ray reported by radiologist as peribronchial cuffing - EKG Interpretation by Me EKG shows normal: Sinus rhythm - Sinus rhythm at a rate of 75 bpm left axis, right bundle branch block pattern multiple APCs Discharge - Discharge Clinical Impression: Shortness of breath, Acute on chronic diastolic CHF (congestive heart failure) , Hypokalemia COPD (chronic obstructive pulmonary disease) Qualifiers: COPD type: unspecified COPD Qualified Code(s): J44.9 - Chronic obstructive pulmonary disease, unspecified Condition: Fair Disposition: ADMITTED INPATIENT Admitting Provider: Hospitalist Unit Admitted: Telemetry Referrals: MADHAVI GREEN MD [Primary Care Provider] - Follow up as needed
[2018-04-26 09:55] LABS: HEMATOCRIT 36.2 % (37.9-51.0); HEMOGLOBIN 12.1 g/dL (13.5-17.0); MEAN CORPUSCULAR HEMOGLOBIN 29.3 pg (27.0-33.4); MEAN CORPUSCULAR HGB CONC 33.5 g/dL (32.0-36.0); MEAN CORPUSCULAR VOLUME 88 fl (80-97); PLATELET COUNT 333 10^3/uL (150-450); RED BLOOD COUNT 4.13 10^6/uL (4.35-5.55); RED CELL DISTRIBUTION WIDTH 14.2 % (11.5-14.0); WHITE BLOOD COUNT 14.8 10^3/uL (4.0-10.5)
--- NOTE | 2018-04-26 10:01 | RADIOLOGY REPORT (SQ) ---
EXAM DESCRIPTION: CHEST SINGLE VIEW COMPLETED DATE/TIME: 04/26/2018 9:30 am REASON FOR STUDY: Shortness of breath COMPARISON: 04/13/2018. NUMBER OF VIEWS: One view. TECHNIQUE: Single frontal radiographic view of the chest acquired. LIMITATIONS: None. FINDINGS: LUNGS AND PLEURA: Relatively low lung volumes. No suggestion of overt pneumonia. MEDIASTINUM AND HILAR STRUCTURES: Stable postoperative contours status post CABG. HEART AND VASCULAR STRUCTURES: Cardiac enlargement with mild central vascular congestion. BONES: No acute findings. HARDWARE: None in the chest. OTHER: No other significant finding. IMPRESSION: Cardiac enlargement with mild central vascular congestion. TECHNICAL DOCUMENTATION: JOB ID: [id number] [employer]- All Rights Reserved Reading location - IP/workstation name: [email or web address]
[2018-04-26 10:15] LABS: ABSOLUTE LYMPHOCYTES# (MANUAL) 2.1 10^3/uL (0.5-4.7); ABSOLUTE MONOCYTES # (MANUAL) 0.9 10^3/uL (0.1-1.4); ABSOLUTE NEUTROPHILS# (MANUAL) 11.4 10^3/uL (1.7-8.2); BASOPHILS % (MANUAL) 0 % (0-2); EOSINOPHILS % (MANUAL) 3 % (0-6); LYMPHOCYTES % (MANUAL) 14 % (13-45); MONOCYTES % (MANUAL) 6 % (3-13); SEGMENTED NEUTROPHILS % (MAN) 77 % (42-78); TOTAL CELLS COUNTED 100
[2018-04-26 10:17] LABS: ANISOCYTOSIS SLIGHT; PLATELET CLUMPS PRESENT; PLATELET COMMENT ADEQUATE; POLYCHROMASIA SLIGHT; TOXIC GRANULATION 1+
[2018-04-26 10:24] LABS: CREATINE KINASE MB 6.58 ng/mL (<4.55)
[2018-04-26 10:30] LABS: ALANINE AMINOTRANSFERASE 63 U/L (21-72); ALKALINE PHOSPHATASE 101 U/L (38-126); ANION GAP 12 (5-19); ASPARTATE AMINO TRANSFERASE 44 U/L (17-59); BILIRUBIN,DIRECT 0.3 mg/dL (0.0-0.4); BLOOD UREA NITROGEN 17 mg/dL (7-20); CALCIUM 9.4 mg/dL (8.4-10.2); CARBON DIOXIDE 30 mmol/L (22-30); CHLORIDE 103 mmol/L (98-107); CREATINE KINASE 187 U/L (55-170); GLUCOSE 56 mg/dL (75-110); POTASSIUM 3.2 mmol/L (3.6-5.0); SODIUM 145.3 mmol/L (137-145); TROPONIN I 0.036 ng/mL
[2018-04-26] MEDS ORDERED: POTASSIUM CHLORIDE 10 MEQ CAPSULE.ER PO ONE (10:59)
[2018-04-26] MEDS ORDERED: INSULIN ASPART SQ SCH (12:00)
--- NOTE | 2018-04-26 12:18 | PDOC H&P ---
History of Present Illness Admission Date/PCP: 04/26/18 11:20 MADHAVI GREEN MD History of Present Illness: JAREN SIERRA is a 68 year old male with a history of coronary artery disease and diastolic heart failure he said he has not really had to have a hospital admission in 3 years related to his heart, and he was recently in the hospital a couple weeks ago because he was dehydrated and hypotensive. He said at that time his doctor took him completely off of his diuretics. He said that when he went home he began to immediately put on some weight. He said he called his primary care provider Dr. Green who then told him to start taking 1 tablet of Lasix a day whereas previously he had been on four. He said he went on like this for a few days and noted that he was still gaining weight and so on his own he went ahead and started taking 1 tablet twice a day. He said he has been doing this for the past 2-3 days. He has orthopnea. He is not hypoxic while he sitting up at rest and he does not struggle to breathe while he sitting up at rest but he does have dyspnea on exertion. He said he has noted that he has had a lot of swelling legs as well. He denies chest pain. He denies palpitations. 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 GI Medical History: Reports: Gastroesophageal Reflux Disease Musculoskeltal Medical History: Reports: Gout Denies: Arthritis Psychiatric Medical History: Denies: Depression Hematology: Denies: Anemia Past Surgical History Past Surgical History: Reports: Cardiac Catheterization, Coronary Artery Bypass Graft - x 2, Coronary Stent, Orthopedic Surgery - left shoulder 2011, back x 3 Social History Information Source: Patient Lives with: Spouse/Significant other Smoking Status: Never Smoker Frequency of Alcohol Use: None Hx Recreational Drug Use: No Drugs: None Hx Prescription Drug Abuse: No Family History Family History: Reviewed & Not Pertinent, DM Parental Family History Reviewed: Yes - Noncontributory Children Family History Reviewed: Yes - Noncontributory Sibling(s) Family History Reviewed.: Yes - Noncontributory noncontributory Medication/Allergy Home Medications: Aspirin [Adult Low Dose Aspirin EC] 81 mg PO DAILY 04/26/18 Atorvastatin Calcium [Lipitor 40 mg Tablet] 40 mg PO QHS 04/26/18 Carvedilol [Coreg 25 mg Tablet] 25 mg PO Q12 04/26/18 Cholecalciferol (Vitamin D3) [Vitamin D3 400 Unit Tablet] 800 units PO DAILY Dabigatran Etexilate Mesylate [Pradaxa 150 mg Capsule] 150 mg PO Q12 04/26/18 Furosemide [Lasix 40 mg Tablet] 40 mg PO QID 04/26/18 Insulin Aspart [Novolog Flexpen] 0 units SQ .PERSLIDINGSCALE 04/26/18 Insulin Glargine,Hum.rec.anlog [Lantus Insulin 100 Unit/1 ml 10 ml] 100 units SQ Q12 04/26/18 Magnesium Oxide [Mag-Ox 400 mg Tablet] 400 mg PO DAILY 04/26/18 Potassium Chloride [Klor-Con M20] 20 meq PO TID 04/26/18 Pramipexole Di-HCl [Mirapex] 2 mg PO QHS 04/26/18 Tamsulosin HCl [Flomax 0.4 mg Cap.sr] 0.4 mg PO DAILY 04/26/18 Telmisartan [Micardis 80 mg Tablet] 80 mg PO DAILY 04/26/18 Allergies/Adverse Reactions: Sulfa (Sulfonamide Antibiotics) Allergy (Mild, Verified 04/26/18 08:23) rash Review of Systems All systems: reviewed and no additional remarkable complaints except as stated - A 10 point review of systems was conducted with the patient was negative except as noted above Physical Exam Vital Signs: Temp Pulse Resp BP Pulse Ox 97.8 F 71 20 158/94 H 94 04/26/18 08:35 04/26/18 08:35 04/26/18 11:01 04/26/18 11:01 04/26/18 11:01 General appearance: PRESENT: no acute distress, cooperative, disheveled, morbidly obese Head exam: PRESENT: atraumatic, normocephalic Eye exam: PRESENT: conjunctiva pink, EOMI, PERRLA. ABSENT: scleral icterus Ear exam: PRESENT: normal external ear exam Mouth exam: PRESENT: moist, neck supple Teeth exam: PRESENT: poor dentation Throat exam: ABSENT: post pharyngeal erythema, tonsillar erythema, tonsillar exudate, tonsillogmegaly Neck exam: ABSENT: carotid bruit, JVD - Difficult to tell with his body habitus , lymphadenopathy, tenderness, thyromegaly Respiratory exam: PRESENT: decreased breath sounds, unlabored. ABSENT: accessory muscle use, rales, rhonchi, tachypnea, wheezes Cardiovascular exam: PRESENT: RRR - Occasional premature beats, +S1, +S2. ABSENT: diastolic murmur, systolic murmur, tachycardia Vascular exam: PRESENT: normal capillary refill GI/Abdominal exam: PRESENT: normal bowel sounds, soft. ABSENT: ascites, distended, guarding, rebound, tenderness Extremities exam: PRESENT: full ROM, pedal edema, +1 edema. ABSENT: clubbing Musculoskeletal exam: PRESENT: ambulatory, normal inspection. ABSENT: deformity Neurological exam: PRESENT: alert, awake, oriented to person, oriented to place , oriented to time, oriented to situation, CN II-XII grossly intact Psychiatric exam: PRESENT: appropriate affect, normal mood Skin exam: PRESENT: dry, warm, other - Hemosiderin deposition in the lower extremities below the knees bilaterally Results Laboratory Results: Reviewed Impressions: Chest X-Ray 04/26/18 09:13 IMPRESSION: Cardiac enlargement with mild central vascular congestion. Assessment & Plan - Diagnosis (1) Acute on chronic diastolic CHF (congestive heart failure) Is this a current diagnosis for this admission?: Yes Plan: We will going to put him back on some IV Lasix. Replace his potassium. The trend his cardiac enzymes. Will order echocardiogram to see if he said any change in his cardiac function. If there is any evidence of decreased EF or new wall motion abnormalities or worsened right sided ventricular function, he will probably need further cardiac evaluation. If that were to occur, he and his want him to be transferred to [place] where he has had cardiac care before. We will continue his medications Coreg, telmisartan, aspirin, and Lipitor. Monitor his blood pressure. If it remains somewhat elevated, will probably give him some supplemental nitroglycerin. (2) Insulin dependent diabetes mellitus Is this a current diagnosis for this admission?: Yes Plan: We will continue his home insulin regimen with consistent carbohydrate diet (3) Morbid obesity with BMI of 40.0-44.9, adult Is this a current diagnosis for this admission?: Yes Plan: Encourage lifestyle modification (4) Heart failure with preserved ejection fraction, NYHA class II Is this a current diagnosis for this admission?: Yes Plan: As above - Time Time Spent: 50 to 70 Minutes Medications reviewed and adjusted accordingly: Yes - Inpatient Certification Based on my medical assessment, after consideration of the patient's comorbidities, presenting symptoms, or acuity I expect that the services needed warrant INPATIENT care.: Yes I certify that my determination is in accordance with my understanding of Medicare's requirements for reasonable and necessary INPATIENT services [42 CFR 412.3e].: Yes Medical Necessity: Need Close Monitoring Due to Risk of Patient Decompensation, Risk of Complication if Not Cared For in Hospital
[2018-04-26] MEDS: FUROSEMIDE INJ/PF 40 MG/4 ML SDV IV SCH ×2 (13:45→22:05)
--- NOTE | 2018-04-26 18:31 | EKG REPORT ---
SEVERITY:- ABNORMAL ECG - SINUS RHYTHM SUPRAVENTRICULAR BIGEMINY RBBB AND LAFB : Confirmed by: Farrah Cruz MD 26-Apr-2018 18:30:06
[2018-04-26] MEDS ORDERED: INSULIN GLARGINE,HUM.REC.ANLOG 1,000 UNIT/10 ML UNIT SUBCUT SCH (22:00)
[2018-04-26] MEDS ORDERED: PRAMIPEXOLE DI HCL 2 MG PO SCH (22:00)
[2018-04-26] MEDS: CARVEDILOL 12.5 MG TABLET PO SCH (22:04)
[2018-04-26] MEDS: PRAMIPEXOLE DI-HCL 0.5 MG TABLET PO SCH (22:04)
[2018-04-26] MEDS: DABIGATRAN ETEXILATE 150 MG CAPSULE PO SCH (22:04)
[2018-04-26] MEDS: ATORVASTATIN CALCIUM 40 MG TABLET PO SCH (22:05)
[2018-04-26] MEDS: BENZONATATE 100 MG CAPSULE PO PRN (22:05)
[2018-04-26] MEDS: INSULIN GLARGINE,HUM.REC.ANLOG 1,000 UNIT/10 ML UNIT SUBCUT SCH (22:20)
[2018-04-27 04:43] LABS: ABSOLUTE EOSINOPHILS # (AUTO) 0.2 10^3/uL (0.0-0.6); ABSOLUTE MONOCYTES (AUTO) 0.8 10^3/uL (0.1-1.4); ABSOLUTE NEUT (AUTO) 6.6 10^3/uL (1.7-8.2); ANION GAP 11 (5-19); BASOPHILS % (AUTO) 0.3 % (0-2); BLOOD UREA NITROGEN 17 mg/dL (7-20); CALCIUM 8.7 mg/dL (8.4-10.2); CARBON DIOXIDE 29 mmol/L (22-30); CHLORIDE 100 mmol/L (98-107); EOSINOPHILS % (AUTO) 2.8 % (0-6); GLUCOSE 330 mg/dL (75-110); HEMATOCRIT 30.2 % (37.9-51.0); HEMOGLOBIN 10.5 g/dL (13.5-17.0); LYMPHOCYTES % (AUTO) 11.4 % (13-45); MEAN CORPUSCULAR HEMOGLOBIN 30.5 pg (27.0-33.4); MEAN CORPUSCULAR HGB CONC 34.7 g/dL (32.0-36.0); MEAN CORPUSCULAR VOLUME 88 fl (80-97); MONOCYTES % (AUTO) 9.1 % (3-13); PLATELET COUNT 175 10^3/uL (150-450); POTASSIUM 3.2 mmol/L (3.6-5.0); RED BLOOD COUNT 3.43 10^6/uL (4.35-5.55); RED CELL DISTRIBUTION WIDTH 14.2 % (11.5-14.0); SEGMENTED NEUTROPHILS % (AUTO) 76.4 % (42-78); SODIUM 140.4 mmol/L (137-145); TOTAL CELLS COUNTED % (AUTO) 100 %; TRIGLYCERIDES 99 mg/dL (<150); WHITE BLOOD COUNT 8.6 10^3/uL (4.0-10.5)
[2018-04-27 04:54] LABS: DIRECT LDL 32 mg/dL (<100)
[2018-04-27] MEDS ORDERED: DEXTROSE 50%-WATER SYRINGE 12.5 GM/25 ML DOSE IV PRN (05:59)
[2018-04-27] MEDS ORDERED: DEXTROSE 40% GEL 15 GM TUBE X 2 PO PRN (05:59)
[2018-04-27] MEDS ORDERED: GLUCAGON,HUMAN RECOMB 1 MG INJ IM PRN (05:59)
[2018-04-27] MEDS ORDERED: DEXTROSE 50%-WATER SYRINGE 25 GM/50 ML DOSE IV PRN (05:59)
[2018-04-27] MEDS ORDERED: DEXTROSE 40% GEL 15 GM TUBE PO PRN (05:59)
[2018-04-27] MEDS: INSULIN LISPRO 100 UNIT/ML 3 ML VIAL SUBCUT PRN ×4 (06:13→21:54)
--- NOTE | 2018-04-27 08:01 | PDOC PROGRESS REPORT ---
Subjective Progress Note for:: 04/27/18 Subjective:: The patient states to feel much better. He had significant amount of diureses with IV Lasix. He denies any chest pain. He denies any shortness of breath with exertion but only when trying to recline in bed. He was scheduled to see the lighting adviser today as an outpatient. Reason For Visit: ACUTE ON CHRONIC DIASTOLIC CONGESTIVE HEART Physical Exam Vital Signs: Temp Pulse Resp BP Pulse Ox 98.5 F 77 22 H 176/89 H 99 04/26/18 19:42 04/27/18 02:00 04/26/18 19:42 04/26/18 19:42 04/26/18 19:42 Intake & Output 04/26/18 04/27/18 04/28/18 06:59 06:59 06:59 Intake Total 444 Output Total 3050 Balance -2606 Weight 139.2 kg General appearance: PRESENT: mild distress Head exam: PRESENT: atraumatic Eye exam: PRESENT: conjunctiva pink Neck exam: ABSENT: carotid bruit, JVD Respiratory exam: PRESENT: crackles Cardiovascular exam: PRESENT: irregular rhythm, +S1, +S2 GI/Abdominal exam: PRESENT: normal bowel sounds, soft Extremities exam: PRESENT: pedal edema, tenderness Musculoskeletal exam: PRESENT: ambulatory, tenderness Neurological exam: PRESENT: alert, awake, oriented to person, oriented to place , oriented to time Results Laboratory Results: 04/27/18 03:52 04/27/18 03:52 04/27/18 04/27/18 03:52 03:52 WBC 8.6 RBC 3.43 L Hgb 10.5 L Hct 30.2 L MCV 88 MCH 30.5 MCHC 34.7 RDW 14.2 H Plt Count 175 Seg Neutrophils % 76.4 Lymphocytes % 11.4 L Monocytes % 9.1 Eosinophils % 2.8 Basophils % 0.3 Absolute Neutrophils 6.6 Absolute Lymphocytes 1.0 Absolute Monocytes 0.8 Absolute Eosinophils 0.2 Absolute Basophils 0.0 Sodium 140.4 Potassium 3.2 L Chloride 100 Carbon Dioxide 29 Anion Gap 11 BUN 17 Creatinine 0.96 Est GFR ( Amer) > 60 Est GFR (Non-Af Amer) > 60 Glucose 330 H Calcium 8.7 Triglycerides 99 Cholesterol 62.50 LDL Cholesterol Direct 32 VLDL Cholesterol 20.0 HDL Cholesterol 18 L 04/26/18 04/26/18 04/27/18 13:12 19:17 01:02 Troponin I 0.033 0.032 0.036 NT-Pro-B Natriuret Pep 04/27/18 03:52 Troponin I NT-Pro-B Natriuret Pep 1460 H Impressions: Chest X-Ray 04/26/18 09:13 IMPRESSION: Cardiac enlargement with mild central vascular congestion. Assessment & Plan - Diagnosis (1) Acute on chronic diastolic CHF (congestive heart failure) Is this a current diagnosis for this admission?: Yes Plan: We will continue diuretics. Will repeat cardiac enzymes. We will consult cardiology. Will obtain echo (2) COPD (chronic obstructive pulmonary disease) Qualifiers: COPD type: unspecified COPD Qualified Code(s): J44.9 - Chronic obstructive pulmonary disease, unspecified Is this a current diagnosis for this admission?: Yes Plan: Continue neb treatments and CPAP (3) Hypokalemia Is this a current diagnosis for this admission?: Yes Plan: We will supplement potassium and recheck magnesium (4) Insulin dependent diabetes mellitus Is this a current diagnosis for this admission?: Yes (5) Morbid obesity with BMI of 40.0-44.9, adult Is this a current diagnosis for this admission?: Yes Plan: Dietary consultation (6) CAD (coronary artery disease) Qualifiers: Coronary Disease-Associated Artery/Lesion type: bypass graft [place] vs. transplanted heart: [place] heart Associated angina: without angina Qualified Code(s): I25.810 - Atherosclerosis of coronary artery bypass graft(s) without angina pectoris Is this a current diagnosis for this admission?: Yes Plan: We will recheck cardiac enzymes echo and EKG will consult with cardiology (7) HLD (hyperlipidemia) Is this a current diagnosis for this admission?: Yes Plan: Continue current treatment (8) HTN (hypertension) Qualifiers: Hypertension type: essential hypertension Qualified Code(s): I10 - Essential (primary) hypertension Is this a current diagnosis for this admission?: Yes Plan: Continue current treatment (9) Obstructive sleep apnea Is this a current diagnosis for this admission?: Yes Plan: Continue CPAP
[2018-04-27] MEDS: INSULIN GLARGINE,HUM.REC.ANLOG 1,000 UNIT/10 ML UNIT SUBCUT SCH ×2 (09:48→21:54)
[2018-04-27] MEDS: POTASSIUM CHLORIDE 10 MEQ CAPSULE.ER PO SCH ×2 (09:49→21:54)
[2018-04-27] MEDS: FUROSEMIDE 40 MG TABLET PO SCH ×2 (09:49→18:47)
[2018-04-27] MEDS: DABIGATRAN ETEXILATE 150 MG CAPSULE PO SCH ×2 (09:50→21:53)
[2018-04-27] MEDS: CARVEDILOL 12.5 MG TABLET PO SCH ×2 (09:50→21:56)
[2018-04-27] MEDS ORDERED: LOSARTAN POTASSIUM 50 MG TABLET PO SCH (10:00)
[2018-04-27] MEDS ORDERED: (PENDING PHARMACY ID) (Telmisartan [Micardis 80 Mg Tablet] 80 MG) PO SCH (10:00)
[2018-04-27] MEDS ORDERED: ASPIRIN 81 MG TABLET, ENT COATED PO SCH (10:00)
[2018-04-27] MEDS ORDERED: TAMSULOSIN HCL 0.4 MG CAP.SR.24H PO SCH (10:00)
[2018-04-27] MEDS ORDERED: POTASSIUM CHLORIDE 10 MEQ CAPSULE.ER PO SCH (10:00)
[2018-04-27] MEDS ORDERED: CHOLECALCIFEROL (D3) 400 UNIT TABLET PO SCH (10:00)
[2018-04-27] MEDS ORDERED: MAGNESIUM OXIDE 400 MG TABLET PO SCH (10:00)
[2018-04-27 10:20] LABS: CREATINE KINASE MB 3.98 ng/mL (<4.55); TROPONIN I 0.031 ng/mL
[2018-04-27 16:10] LABS: CREATINE KINASE MB 5.04 ng/mL (<4.55); TROPONIN I 0.031 ng/mL
--- NOTE | 2018-04-27 16:45 | XCELERA REPORT ---
[address] [address] Transthoracic Echocardiogram Report Name: JAREN SIERRA Age: 68 yrs Gender: Male : 1950 Patient Status: Inpatient Patient Location: [address] [place] [address] Study Date: 04/27/2018 01:46 PM Height: 72 in Weight: 312 lb BSA: 2.6 m2 Procedure: A two-dimensional transthoracic echocardiogram with color flow Doppler was performed. The study was technically difficult with many images being suboptimal in quality. Reason For Study: CHF History: CHF. Ordering Physician: GRADY OLGUIN Performed By: Antonia So Interpretation Summary The left ventricle is normal in size. There is normal left ventricular wall thickness. Left ventricular systolic function is low normal. LV EF is 55% The left ventricular wall motion is normal. Septal motion is consistent with conduction abnormality There is no thrombus. The right ventricle is not well visualized secondary to technical limitations Suspect RV enlargement. The right atrium is normal. The left atrium is mildly dilated. There is no evidence of mitral valve prolapse. There is no vegetation seen on the mitral valve. There is no mitral valve stenosis. There is no mitral regurgitation noted. There is no aortic valvular vegetation. There is no aortic valve stenosis There is no LVOT obstruction. No aortic regurgitation is present. There is no tricuspid stenosis. There is a mild to moderate amount of tricuspid regurgitation There is mild pulmonary hypertension by echo RVSP is 41 to 46 mm of Hg , with RA mean of 15 to 20.This probably underestimation of RVSP due to poor sampling. The inferior vena cava appeared dilated and decreased < 50% with respiration (RAP 15-20 mmHg) There is no pericardial effusion. MMode/2D Measurements & Calculations RVDd: 4.5 cm LVIDd: 5.3 cm FS: 27.5 % Ao root diam: 3.2 cm IVSd: 1.0 cm LVIDs: 3.9 cm EDV(Teich): 137.3 ml LVPWd: 1.1 cm ESV(Teich): 64.7 ml Ao root area: 8.2 cm2 EF(Teich): 52.9 % LA dimension: 4.3 cm Doppler Measurements & Calculations MV E max nan: MV P1/2t max nan: Ao V2 max: LV V1 max P.0 cm/sec 117.5 cm/sec 128.5 cm/sec 5.4 mmHg MV A max nan: MV P1/2t: 69.7 msec Ao max PG: LV V1 max: 40.0 cm/sec 6.6 mmHg 116.5 cm/sec MV E/A: 3.0 MVA(P1/2t): 3.2 cm2 MV dec slope: 493.8 cm/sec2 MV dec time: 0.24 sec PA V2 max: TR max nan: 89.3 cm/sec 255.4 cm/sec PA max PG: TR max P.1 mmHg 3.2 mmHg Left Ventricle The left ventricle is normal in size. There is normal left ventricular wall thickness. Left ventricular systolic function is low normal. LV EF is 55%. LV diastolic function not assessed. The left ventricular wall motion is normal. Septal motion is consistent with conduction abnormality. There is no thrombus. Right Ventricle The right ventricle is not well visualized secondary to technical limitations. Suspect RV enlargement. Atria The right atrium is normal. The left atrium is mildly dilated. Mitral Valve There is no evidence of mitral valve prolapse. There is no vegetation seen on the mitral valve. There is no mitral valve stenosis. There is no mitral regurgitation noted. Aortic Valve There is no aortic valvular vegetation. There is no aortic valve stenosis. There is no LVOT obstruction. No aortic regurgitation is present. Tricuspid Valve There is no tricuspid stenosis. There is a mild to moderate amount of tricuspid regurgitation. There is mild pulmonary hypertension by echo. RVSP is 41 to 46 mm of Hg , with RA mean of 15 to 20.This probably underestimation of RVSP due to poor sampling. Pulmonic Valve There is no pulmonic valvular stenosis. There is no pulmonic valvular regurgitation. Great Vessels The aortic root is not well visualized. The inferior vena cava appeared dilated and decreased < 50% with respiration (RAP 15-20 mmHg). Effusions There is no pericardial effusion. : GRADY OLGUIN > Farrah Cruz
[2018-04-27] MEDS: BENZONATATE 100 MG CAPSULE PO PRN (19:43)
[2018-04-27 20:36] LABS: CREATINE KINASE MB 4.69 ng/mL (<4.55); TROPONIN I 0.033 ng/mL
[2018-04-27] MEDS ORDERED: LEVOFLOXACIN 500 MG TABLET PO SCH (21:00)
[2018-04-27] MEDS: ATORVASTATIN CALCIUM 40 MG TABLET PO SCH (21:55)
[2018-04-27] MEDS: PRAMIPEXOLE DI-HCL 0.5 MG TABLET PO SCH (21:55)
[2018-04-27] MEDS ORDERED: SPIRONOLACTONE 25 MG TABLET PO SCH (22:00)
[2018-04-28 04:45] LABS: ABSOLUTE BASOPHILS # (AUTO) 0.1 10^3/uL (0.0-0.2); ABSOLUTE EOSINOPHILS # (AUTO) 0.3 10^3/uL (0.0-0.6); ABSOLUTE LYMPHOCYTES (AUTO) 1.1 10^3/uL (0.5-4.7); ABSOLUTE MONOCYTES (AUTO) 0.8 10^3/uL (0.1-1.4); ABSOLUTE NEUT (AUTO) 7.4 10^3/uL (1.7-8.2); BASOPHILS % (AUTO) 0.9 % (0-2); EOSINOPHILS % (AUTO) 3.2 % (0-6); HEMOGLOBIN 11.3 g/dL (13.5-17.0); LYMPHOCYTES % (AUTO) 11.5 % (13-45); MEAN CORPUSCULAR HEMOGLOBIN 30.1 pg (27.0-33.4); MEAN CORPUSCULAR HGB CONC 34.3 g/dL (32.0-36.0); MEAN CORPUSCULAR VOLUME 88 fl (80-97); MONOCYTES % (AUTO) 7.8 % (3-13); PLATELET COUNT 187 10^3/uL (150-450); RED BLOOD COUNT 3.76 10^6/uL (4.35-5.55); RED CELL DISTRIBUTION WIDTH 14.1 % (11.5-14.0); SEGMENTED NEUTROPHILS % (AUTO) 76.6 % (42-78); TOTAL CELLS COUNTED % (AUTO) 100 %; WHITE BLOOD COUNT 9.7 10^3/uL (4.0-10.5)
[2018-04-28 05:04] LABS: ALANINE AMINOTRANSFERASE 54 U/L (21-72); ALBUMIN 3.5 g/dL (3.5-5.0); ALKALINE PHOSPHATASE 107 U/L (38-126); ANION GAP 12 (5-19); ASPARTATE AMINO TRANSFERASE 22 U/L (17-59); BILIRUBIN,DIRECT 0.3 mg/dL (0.0-0.4); BILIRUBIN,TOTAL 0.7 mg/dL (0.2-1.3); BLOOD UREA NITROGEN 17 mg/dL (7-20); CALCIUM 8.7 mg/dL (8.4-10.2); CARBON DIOXIDE 31 mmol/L (22-30); CHLORIDE 100 mmol/L (98-107); GLUCOSE 172 mg/dL (75-110); POTASSIUM 3.7 mmol/L (3.6-5.0); SODIUM 142.6 mmol/L (137-145); TOTAL PROTEIN 5.7 g/dL (6.3-8.2)
--- NOTE | 2018-04-28 08:29 | PDOC DISCHARGE SUMMARY ---
General - Admit/Disc Date/PCP Admission Date/Primary Care Provider: 04/26/18 11:20 MADHAVI GREEN MD Discharge Date: 04/28/18 - Discharge Diagnosis (1) Acute on chronic diastolic CHF (congestive heart failure) Is this a current diagnosis for this admission?: Yes Summary: Continue current medications. DASH diet (2) COPD (chronic obstructive pulmonary disease) Is this a current diagnosis for this admission?: Yes Summary: Continue current treatment (3) Hypokalemia Is this a current diagnosis for this admission?: Yes Summary: We will adjust potassium and cardiology has started spironolactone which should increase the potassium also (4) Insulin dependent diabetes mellitus Is this a current diagnosis for this admission?: Yes Summary: Continue current insulin will adjust according to the hemoglobin A1c as an outpatient (5) Morbid obesity with BMI of 40.0-44.9, adult Is this a current diagnosis for this admission?: Yes Summary: Diet and exercise (6) CAD (coronary artery disease) Is this a current diagnosis for this admission?: Yes Summary: Follow-up with cardiology (7) HLD (hyperlipidemia) Is this a current diagnosis for this admission?: Yes Summary: Weight loss (8) HTN (hypertension) Is this a current diagnosis for this admission?: Yes Summary: Continue current treatment (9) Obstructive sleep apnea Is this a current diagnosis for this admission?: Yes Summary: Continue CPAP - Additional Information Discharge Diet: Cardiac, Diabetic Discharge Activity: Activity As Tolerated, Balance Activity w/Rest, Weigh Daily Prescriptions: Spironolactone [Aldactone 25 mg Tablet] 25 mg PO Q12 #60 tablet Home Medications: Aspirin [Adult Low Dose Aspirin EC] 81 mg PO DAILY 04/26/18 Atorvastatin Calcium [Lipitor 40 mg Tablet] 40 mg PO QHS 04/26/18 Carvedilol [Coreg 25 mg Tablet] 25 mg PO Q12 04/26/18 Cholecalciferol (Vitamin D3) [Vitamin D3 400 Unit Tablet] 800 units PO DAILY Dabigatran Etexilate Mesylate [Pradaxa 150 mg Capsule] 150 mg PO Q12 04/26/18 Insulin Aspart [Novolog Flexpen] 0 units SQ .PERSLIDINGSCALE 04/26/18 Insulin Glargine,Hum.rec.anlog [Lantus Insulin 100 Unit/1 ml 10 ml] 100 units SQ Q12 04/26/18 Pramipexole Di-HCl [Mirapex] 2 mg PO QHS 04/26/18 Tamsulosin HCl [Flomax 0.4 mg Cap.sr] 0.4 mg PO DAILY 04/26/18 Telmisartan [Micardis 80 mg Tablet] 80 mg PO DAILY 04/26/18 Furosemide [Lasix 40 mg Tablet] 40 mg PO BID #0 04/28/18 Magnesium Oxide [Mag-Ox 400 mg Tablet] 400 mg PO BID #0 04/28/18 Potassium Chloride [Klor-Con M20] 20 meq PO BID #0 04/28/18 Spironolactone [Aldactone 25 mg Tablet] 25 mg PO Q12 #60 tablet 04/28/18 History of Present Illness History of Present Illness: JAREN SIERRA is a 68 year old male Hospital Course Hospital Course: The patient was admitted with a fluid overload. He did quite well with diuresis. His was in negative balance of over 5 L. His echocardiogram was essentially unremarkable except for difficulty seeing the right side of the heart with a question of pulmonary hypertension will need to obtain a repeat echo or a VQ scan Physical Exam Vital Signs: Temp Pulse Resp BP Pulse Ox 97.5 F 60 18 142/79 H 97 04/28/18 04:00 04/28/18 04:00 04/28/18 04:00 04/28/18 04:00 04/28/18 04:00 Intake & Output 04/27/18 04/28/18 04/29/18 06:59 06:59 06:59 Intake Total 444 2257 Output Total 3050 3500 Balance -2606 -1243 Weight 139.2 kg General appearance: PRESENT: no acute distress Head exam: PRESENT: atraumatic Eye exam: PRESENT: conjunctiva pink Respiratory exam: PRESENT: crackles Cardiovascular exam: PRESENT: +S1, +S2 GI/Abdominal exam: PRESENT: normal bowel sounds, soft Extremities exam: PRESENT: pedal edema Musculoskeletal exam: PRESENT: ambulatory Neurological exam: PRESENT: alert, awake Results Laboratory Results: 04/28/18 04:36 04/28/18 04:36 04/28/18 04/28/18 04:36 04:36 WBC 9.7 RBC 3.76 L Hgb 11.3 L Hct 33.0 L MCV 88 MCH 30.1 MCHC 34.3 RDW 14.1 H Plt Count 187 Seg Neutrophils % 76.6 Lymphocytes % 11.5 L Monocytes % 7.8 Eosinophils % 3.2 Basophils % 0.9 Absolute Neutrophils 7.4 Absolute Lymphocytes 1.1 Absolute Monocytes 0.8 Absolute Eosinophils 0.3 Absolute Basophils 0.1 Sodium 142.6 Potassium 3.7 Chloride 100 Carbon Dioxide 31 H Anion Gap 12 BUN 17 Creatinine 0.93 Est GFR ( Amer) > 60 Est GFR (Non-Af Amer) > 60 Glucose 172 H Calcium 8.7 Magnesium 1.5 L Total Bilirubin 0.7 AST 22 ALT 54 Alkaline Phosphatase 107 Total Protein 5.7 L Albumin 3.5 04/26/18 04/26/18 04/27/18 13:12 19:17 01:02 Creatine Kinase CK-MB (CK-2) Troponin I 0.033 0.032 0.036 NT-Pro-B Natriuret Pep 04/27/18 04/27/18 04/27/18 03:52 08:59 08:59 Creatine Kinase 118 CK-MB (CK-2) 3.98 Troponin I 0.031 NT-Pro-B Natriuret Pep 1460 H 04/27/18 04/27/18 04/27/18 15:23 15:23 20:00 Creatine Kinase 119 118 CK-MB (CK-2) 5.04 H Troponin I 0.031 NT-Pro-B Natriuret Pep 04/27/18 20:00 Creatine Kinase CK-MB (CK-2) 4.69 H Troponin I 0.033 NT-Pro-B Natriuret Pep Impressions: Chest X-Ray 04/26/18 09:13 IMPRESSION: Cardiac enlargement with mild central vascular congestion. Qualifiers - * PATIENT BEING DISCHARGED WITH ANY OF THE FOLLOWING DIAGNOSIS: Heart Failure [place] Pt being discharged on Aspirin therapy?: Yes [place] Pt being discharged on Statins?: Yes HF Pt being discharged on ACEI for LVEF less than 40%?: Yes HF Pt being discharged on ARBS for LVEF less than 40%?: Yes HF Pt with Afib discharged with Warfarin?: No Reason(s) for not prescribing Warfarin:: Not indicated HF Pt discharged on evidence-based Beta Maria Eugenia:: Yes
[2018-04-28 08:44] VITALS: BP 145/84
--- NOTE | 2018-04-28 09:23 | EKG REPORT ---
SEVERITY:- ABNORMAL ECG - SINUS RHYTHM RBBB AND LAFB : Confirmed by: Contreras Boyle 28-Apr-2018 09:22:52
--- NOTE | 2018-04-28 14:06 | CONSULTATION REPORT E ---
Consultation Report NAME: JAREN SIERRA : 1950 AGE: 68Y DATE: 04/27/2018 531 A TO: BLESSING BRANCH M.D. FROM: MADHAVI GREEN M.D. Requesting Physician The patient is seen at 12:30 p.m. on 04/27/2018. REASON FOR CONSULTATION: Leg edema, possible right heart failure. HISTORY: The patient is a moderately obese male with a known history of coronary artery disease, history of coronary artery bypass grafting surgery, history of hypertension, history of diabetes mellitus, history of atrial fibrillation in the past now in sinus rhythm after a MES procedure, and on chronic anticoagulation with Pradaxa, who states that he was admitted in mid March with hypokalemia and elevated BUN and creatinine, and seemed to be diuresed, and his diuretics were stopped. As soon as he was discharged home, he started having swelling of his legs and also gained weight. This persisted in spite of him being asked to restart Lasix once a day by his primary care physician. The patient is admitted for further workup. He does have chronic dyspnea on exertion. He has also a history of obstructive sleep apnea and states about a month ago his CPAP settings were changed with a new CPAP, since on the prior settings the patient was having several apneic episodes in spite of CPAP. He denies any chest pain or discomfort. There are no palpitations. There is no PND. There are no TIA or CVA symptoms. There is no bleeding on Pradaxa. PAST MEDICAL HISTORY: History of coronary artery disease, no history of myocardial infarction. In 2014 he had a stress test at [facility], where he was transferred after he had chest pain. After he was transferred there, the stress test showed a small area of perfusion defect, which is mild ischemia with artifact, with no evidence of VT and left ventricular ejection fraction of 40%. Subsequently, he was treated medically again in April 2015. He presented with intermittent chest pain and was transferred to [facility]. At that time, he did not have a myocardial infarction. Cardiac catheterization showed that the patient had significant LAD and diagonal disease, and underwent a left internal mammary artery to the LAD and a saphenous vein graft to the diagonal branch. At that time, the patient was in atrial fibrillation and had a maze procedure, and has been in sinus rhythm since then. The patient is also on chronic anticoagulation. He has a history of diabetes mellitus type 2, insulin-dependent. He also has a history of hypertension, which is not very well controlled at present. He has a history of atrial fibrillation as mentioned, now in sinus rhythm after the maze procedure. He has no history of TIA or CVA. He also has obstructive sleep apnea and is on CPAP for that. Recently, the settings have been changed. The patient also states since mid March, he has been having chronic cough, productive of sputum. There is no wheezing or asthmatic attacks. The patient's renal function is now normal, but the patient is still hypokalemic. He has no history of thyroid disease. SOCIAL HISTORY: The patient does not smoke. The patient has no history of ETOH abuse. FAMILY HISTORY: Positive for diabetes in father and diabetes in mother, and also coronary artery disease in mother, and diabetes in his sister. PAST SURGICAL HISTORY: Positive for cardiac catheterization, history of coronary artery bypass grafting surgery, history of Cryomaze procedure and left atrial appendage clipping. He has a history of left renal artery stent for uncontrolled hypertension in the past. He also had left shoulder surgery and also diskectomy in the back. Since then, his gait has been improved. The patient is a full code. His is the surrogate healthcare decision maker. ALLERGIES: SULFA. MEDICATIONS: 1. Aspirin 325 mg p.o. x1, given on 04/26/2018 and subsequently 81 mg daily. 2. Atorvastatin 40 mg p.o. at bedtime. 3. Tessalon Perles 100 mg four times daily as needed. 4. Coreg 25 mg p.o. q.12 hours. 5. Cholecalciferol 40 mg p.o. daily. 6. Pradaxa 150 mg p.o. q.12 hours. 7. He is on hypoglycemic precautions with glucose 40% gel, 15 grams and 30 grams p.o. respectively as needed for hypoglycemia. He is on dextrose 50% 12.5 grams IV as needed for hypoglycemia. 8. Lasix 40 mg p.o. twice daily. 9. Glucagon 1 mg intramuscular as needed hypoglycemia. 10. Novolog FlexPen dosage as per instructions. 11. Lantus insulin 100 units subcutaneously q.12 hours. He is on Accu-Cheks before meals three times daily and at bedtime with sliding scale regular insulin coverage. 12. Ipratropium albuterol 3 mL nebulizer treatment. 13. Losartan 100 mg p.o. daily. 14. Magnesium oxide 400 mg p.o. daily. 15. Potassium chloride 40 mEq p.o. x1 and 20 mEq. 16. Mirapex 2 mg p.o. at bedtime. 17. Flomax 0.4 mg p.o. daily. REVIEW OF SYSTEMS: CONSTITUTIONAL: Denies any fevers, chills, or rigors. Complains of generalized fatigue and weakness. HEENT: Denies headaches, but has dizziness off and on. No real vertigo. Eyes: No history of amblyopia or amaurosis fugax or diplopia. Ears: No history of tinnitus. No hearing loss. No history of recurrent ear infections. Nose: No history of hay fever, no history of nosebleeds, no history of nasal polyps. Mouth: Has some dryness of the mouth, but there is no history of altered taste sensation. There are no ulcers in the mouth. There is no bleeding from the gums. Throat: There is no odynophagia or dysphagia. There is no recurrent sore throats. There is no throat pain. SKIN: There are no skin rashes. There is no petechiae or ecchymosis. There is no pruritus. There is no yellowish discoloration of the skin. NECK: No enlarged neck lymph nodes. No swelling in the neck. No goiter. No neck pain. LUNGS: The patient recently has been having cough productive of green sputum. No wheezing. No history of asthma or COPD. Nonsmoker. Has never smoked. History of sleep apnea. Recently, his BiPAP settings about a month ago have been changed due to several apneic episodes in the past, on prior settings of the CPAP. He has no history of pulmonary embolism. No history of asthma or COPD. No history of pleuritic chest pain. Symptoms suggestive of bronchitis, but no wheezing. CARDIAC: History of coronary artery disease. No history of angina. No past history of VT. No past history of congestive heart failure. At present, the patient seems to have leg edema, orthopnea, and shortness of breath on exertion, most likely secondary to right heart failure/pulmonary hypertension, although the echo is not a good study and fails to back this diagnosis at present. There is no history of palpitations. History of atrial fibrillation post maze procedure and clipping of the left atrial appendage. He also has a history of left renal artery stent for uncontrolled hypertension. He has no PND. He has leg edema now. He denies any syncope. ENDOCRINE: History of diabetes mellitus, type 2 insulin-dependent. There is no history of thyroid disease. No history of polydipsia or polyuria. No history of heat or cold intolerance. RENAL: There is a past history of renal failure due to . The patient's renal function is normal. The patient has a history of enlarged prostate, symptoms controlled with Flomax. There is no history of hematuria, pyuria, or dysuria. METABOLIC: No history of gout. History of hyperlipidemia present. GI: The patient has a history of GERD. No history of GI bleed. No history of fatty food intolerance. No history of cirrhosis. There is no history of constipation. No history of altered bowel movements. VASCULAR: No history of buttock or calf claudication. No history of DVT. History of left renal artery stent placement in the past. Uncontrolled hypertension. HEMATOLOGIC: No history of bleeding diathesis or history of clotting disorders. MUSCULOSKELETAL: History of chronic back pain. History of ruptured disk; since then, his leg is unsteady and he uses a walker, but no frequent falls. WEDDING COORDINATOR: No history of TIA or CVA. No history of headaches, seizures, or migraines. History of gait imbalance as mentioned earlier. PSYCHIATRIC: No history of anxiety or depression. No history of suicidal ideation. No history of homicidal ideation. PHYSICAL EXAMINATION: GENERAL: The patient is moderately obese, but is well groomed. VITAL SIGNS: He is afebrile with temperature 98.4 degrees Fahrenheit. Pulse 71 beats per minute, blood pressure 157/73, respirations 20 per minute, O2 sats are 93% on room air. HEENT: Head is normocephalic/atraumatic. Eyes: Pupils are equal, round, regular, reactive to light and accommodation. Extraocular movements are normal. There is no conjunctival pallor. There is no scleral icterus. Ears: Tympanic membranes are intact. External auditory canals clear. Nose: There is no deviated nasal septum. There is no inflammation of the nasal mucous membranes. Mouth: Mucous membranes are moist. Tongue is moist. There are no ulcers, no bleeding from the gums. Throat: There is no redness of the oropharynx. There are no exudates. SKIN: There is no skin rash. There is no petechiae or ecchymosis. There are no skin lesions. NECK: Supple. There is mild JVD present. There are no carotid bruits. Carotids are equal with normal excursion. There is no lymphadenopathy. There is no goiter. Trachea is central. LUNGS: Clear without any rhonchi or wheezing. HEART: S1, S2 heard. S1 is of normal intensity. There is no S3 gallop. There is no S4 gallop. There is a systolic murmur of mild mitral regurgitation present with radiation from the apex to the left axilla. There is no rub. ABDOMEN: Soft, obese, nontender. There is no hepatosplenomegaly. Bowel sounds are well heard. There is no tender areas or masses. EXTREMITIES: Femorals are diminished. Femorals are deep. There are no femoral bruits. Leg pulses are diminished. There is 1-2+ edema bilaterally. There is no DVT or cellulitis. There is no calf tenderness. There is no cyanosis or clubbing. WEDDING COORDINATOR: The patient is conscious, awake, alert, oriented x3 with no focal deficits. PSYCHIATRIC: The patient's judgment and insight are intact. His affect is normal. The patient's EKG done on 04/26/2018 shows sinus rhythm, bigeminy, right bundle branch block pattern and left bundle branch block pattern. The patient's EKG strips done yesterday show sinus rhythm with ventricular hypertrophy. IVCD/ pattern. Chest x-ray shows cardiomegaly with right central vascular congestion. The patient has known congestive heart failure. The patient's echocardiogram is a suboptimal study and difficult study. The left ventricle is normal in size. Wall thickness is normal without left ventricular hypertrophy. Left ventricular systolic function is low normal with left ventricular ejection fraction of 55%. Septal motion is consistent with conduction abnormality. There is no wall motion abnormality. There is no thrombus. The right ventricle is not well visualized, but I suspect enlargement of the right ventricle. The right atrium is normal. The left atrium is mildly dilated. There is no mitral valve stenosis and no mitral regurgitation. There is mild to moderate tricuspid regurgitation, with right ventricular systolic pressure of 41-46 mmHg with right atrial mean of 15-20. This is because the inferior vena cava appears dilated and excursions are diminished with less than 50%. There is no pericardial effusion. There is no aortic valve stenosis. There is no aortic regurgitation. The patient's sodium is 145.3 yesterday and potassium was 3.2. Today, the patient's sodium is 125.4, potassium 3.2, chloride 100, CO2 of 29, pO2 of 29. The patient's BUN is 17, creatinine 0.93, GFR greater than 60. Glucose 330. Calcium 8.7. Troponin-I is indeterminate at 0.022 and 0.033. His NT-proBNP is 1460. His HDL level is low at 18. His triglycerides are normal at 99, and his LDL cholesterol is normal at 32. The patient's white count is 8600, hemoglobin 7.5, hematocrit 30.1, and platelets are 175,000. IMPRESSION: 1. RIGHT HEART FAILURE. This is suspected. Would continue the patient on diuretics. 2. PULMONARY HYPERTENSION. Mild, with right ventricular systolic pressure of 41-46 mmHg. This may be an underestimation of the right ventricular systolic pressure due to poor interrogation of the tricuspid valve regurgitant jet. Will try to get a limited echo. If this is positive, then will refer the patient to the pulmonary clinic. 3. OBSTRUCTIVE SLEEP APNEA. On BiPAP recently. Settings have been changed. 4. CORONARY ARTERY DISEASE. History of coronary artery bypass grafting surgery, where the patient received HANNAH to the LAD, and saphenous vein graft to the diagonal-1 branch. No anginal symptoms noted. 5. PAROXYSMAL ATRIAL FIBRILLATION. At present, sinus rhythm. History of Cryomaze procedure and left atrial appendage clipping. The patient is on Pradaxa, which is an anticoagulation agent. 6. ACUTE BRONCHITIS. Strongly recommend placing the patient on Levaquin. 7. HYPERTENSION. 8. INSULIN-DEPENDENT DIABETES MELLITUS TYPE 2. Blood sugar still not controlled. 9. GASTROESOPHAGEAL REFLUX DISEASE. 10. HYPOKALEMIA. 11. HYPERLIPIDEMIA. 12. ENLARGED PROSTATE SYMPTOMS. Flomax. 13. OBESITY. Moderate. Approaching morbid obesity. RECOMMENDATIONS: The patient will continue Pradaxa. Continue his current other medications. Will try to get a limited echo to see right heart pressures *------* right atrial enlargement and the IVC remaining dilated, with less than 30% decrease in size on inspiration. Also, for the bronchitis will start the patient on Levaquin. Note that 60 minutes spent with the patient, with more than 50% of the time spent in direct patient care. His medications have been reviewed. The chart has been reviewed. Medication adjustments have been made. Medical decision making is of high complexity. Note the patient's is surrogate healthcare decision maker. Note that the patient was seen at 12:30 p.m. today, on 04/27/2018. Will discuss with Dr. Green. Initially, I thought of getting a ventilation perfusion scan for chronic pulmonary emboli, but the patient is on Pradaxa and at present this is not indicated. The patient's shortness of breath may be related to his obesity and also not well treated obstructive sleep apnea. Only a month ago, the settings have been changed. If limited echo can show that the patient has significant pulmonary hypertension, then will refer the patient to [facility] for pulmonary hypertension followup. Note that the patient has no history of and has never smoked. Will discuss with Dr. Green. Will follow the echo results and discuss with the patient. DICTATING PHYSICIAN: BLESSING BRANCH M.D. 1217M [id number] [facility]#: [id number] ID: [id number] JOB#: [id number] ACCT: [id number] cc:BLESSING BRANCH M.D. >
--- NOTE | 2018-04-29 10:59 | PROGRESS NOTE E ---
Progress Note NAME: JAREN SIERRA : 1950 AGE: 68Y DATE: 04/28/2018 ROOM: 531 SUBJECTIVE: The patient denies any chest pain or discomfort. There is no PND or orthopnea. His leg edema is much improved and almost resolved with there being only trace edema. There is no PND or orthopnea. There are no palpitations or syncope. There is no recurrence of atrial fibrillation. There are no TIA or CVA symptoms. There is no bleeding or . OBJECTIVE: GENERAL: On examination, the patient is moderately obese and he is well groomed. VITAL SIGNS: He is afebrile with a temperature of 97.7 degrees Fahrenheit, pulse is 59 beats per minute, blood pressure 145/84, respirations are 17 per minute, O2 saturations are 97% on room air. HEENT: Head is INCOMPLETE DICTATION DICTATING PHYSICIAN: BLESSING BRANCH M.D. 5090M [id number] [facility]#: [id number] ID: [id number] JOB#: [id number] ACCT: [id number] cc: >
== END 2018-04-28 10:50 | disposition home or self-care (01) | DRG 292 ==
LOC: ER 08:21 → EH 11:20 → 5 18:17
PROVIDERS: ADMIT Internal Medicine; ATTEND Internal Medicine
PROC: 3E0F73Z Introduction of Anti-inflammatory into Respiratory Tract, Via Natural or Artificial Opening (ICD-10-PCS; principal; 2018-04-26)
DX: I11.0 Hypertensive heart disease with heart failure (principal); Z68.41 Body mass index [BMI] 40.0-44.9, adult; I45.2 Bifascicular block; J44.0 Chronic obstructive pulmonary disease with (acute) lower respiratory infection; I25.810 Atherosclerosis of coronary artery bypass graft(s) without angina pectoris; I50.33 Acute on chronic diastolic (congestive) heart failure; J44.9 Chronic obstructive pulmonary disease, unspecified; E87.6 Hypokalemia; E66.01 Morbid (severe) obesity due to excess calories; E78.00 Pure hypercholesterolemia, unspecified; G47.33 Obstructive sleep apnea (adult) (pediatric); I48.91 Unspecified atrial fibrillation; I27.20 Pulmonary hypertension, unspecified; K21.9 Gastro-esophageal reflux disease without esophagitis; I07.1 Rheumatic tricuspid insufficiency; M54.9 Dorsalgia, unspecified; E11.51 Type 2 diabetes mellitus with diabetic peripheral angiopathy without gangrene; I48.0 Paroxysmal atrial fibrillation; G89.29 Other chronic pain; J20.9 Acute bronchitis, unspecified; E86.0 Dehydration; M10.9 Gout, unspecified; Z79.82 Long term (current) use of aspirin; Z79.4 Long term (current) use of insulin; Z79.899 Other long term (current) drug therapy; Z95.1 Presence of aortocoronary bypass graft; Z88.2 Allergy status to sulfonamides; Z79.01 Long term (current) use of anticoagulants; Z83.3 Family history of diabetes mellitus; Z82.49 Family history of ischemic heart disease and other diseases of the circulatory system
CPT/HCPCS: 36415; 71045; 80048; 80053; 80061; 82550; 82553; 82962; 83735; 83880; 84484; 85025; 93005; 93010; 93306; 99285; J1815; J1940; J3490; J7620

== ENCOUNTER 2018-08-06 10:18 | Day surgery (SDC) | payer MEDICARE, OTHER ==
[~2018-08-06 10:18] MED LIST: KETOROLAC TROMETHAMINE 0.45% 4 DROP/0.4 ML DROPERETTE OS PRN
[2018-08-06] MEDS: TETRACAINE HCL 0.5% OPH SOLN 4 ML OS PRN ×4 (11:19→12:04)
[2018-08-06] MEDS: TROPICAMIDE 1% OPH SOLN 3 ML OS PRN ×3 (11:19→11:46)
[2018-08-06] MEDS: CYCLOPENTOLATE 0.2%/PHENYLEPHRINE 1% OPH SOLN 2 ML OS PRN ×3 (11:19→11:46)
[2018-08-06] MEDS: BESIFLOXACIN HCL 0.6% OPH SUSP 5 ML BOTTLE OS PRN ×4 (11:19→12:29)
[2018-08-06] MEDS ORDERED: MIDAZOLAM 2 MG/2 ML INJ ONE (11:39)
[2018-08-06] MEDS: EPINEPHRINE INJ/PF 1 MG/1 ML AMPULE ONE ×2 (12:16)
[2018-08-06] MEDS: LIDOCAINE 1%/PHENYLEPHRINE 1.5% 1 ML VIAL ONE ×3 (12:16→12:24)
[2018-08-06] MEDS: CHONDR SU A NA/HYALUR INTRAOC KIT (SURGICARE) ONE ×2 (12:16)
[2018-08-06] MEDS ORDERED: FENTANYL CITRATE INJ/PF 100 MCG/2 ML AMPUL ONE (12:23)
[2018-08-06] MEDS: DORZOLAMIDE HCL 2%/TIMOLOL MALEAT 0.5% OPH SOLN 10 ML ONE ×2 (12:29)
--- NOTE | 2018-08-07 11:22 | [facility] OPERATIVE REPORT E ---
[facility] Operative Report NAME: JAREN SIERRA AGE: 68Y DATE OF SURGERY: 08/06/2018 ROOM: PREOPERATIVE DIAGNOSIS: CATARACT, LEFT EYE. POSTOPERATIVE DIAGNOSIS: CATARACT, LEFT EYE. OPERATION: Cataract extraction with insertion of an IOL of the left eye. SURGEON: EMERITA DESIR M.D. ANESTHESIA: Topical. PROCEDURE: After obtaining appropriate consent, the patient's left eye was prepped and draped in sterile fashion as well as the surgeon in a sterile manner and cataract surgery was started. First a paracentesis blade was used to make a side-port incision. Viscoelastic was used to inflate the anterior chamber. Next a 2.4 mm incision was made with a 2.4 mm blade, clear corneal temporally. A continuous capsulorrhexis was made using a cystotome and Utrata forceps. Following this hydrodissection was carried out to make the lens fully loose and mobile and it was rotated 90 degrees. Following this, a vpvyof-nps-zjuinmf technique was used to phacoemulsify the lens with a CDE of 6.89. The remaining cortex was removed with irrigation/aspiration. Provisc was instilled into the capsular bag to inflate the bag. A SN60WF, 18.0 diopter lens was placed. The remaining viscoelastic material was removed with irrigation/aspiration. Following this, the incision was found to be watertight. Besivance was instilled into the eye and a protective shield was placed over the eye. The patient returned to the postoperative recovery in stable condition. DICTATING PHYSICIAN: EMERITA DESIR M.D. 1209M [id number] PHY#: [id number] ID: [id number] JOB#: [id number] ACCT: [id number] cc:EMERITA DESIR M.D. >
--- NOTE | 2018-08-07 11:27 | [facility] DISCHARGE SUMMARY E ---
[facility] Discharge Summary NAME: JAREN SIERRA AGE: 68Y ADMITTED: 08/06/2018 DISCHARGED: 08/06/2018 FINAL DIAGNOSIS: CATARACT, LEFT EYE. SUMMARY: This is a 68-year-old male who underwent cataract extraction, left eye. He underwent surgery because he was having difficulty driving at night secondary to glare from headlights and difficulty seeing road signs. DISCHARGE INSTRUCTIONS: He should be on a regular diet, no bending at his waist, and no heavy lifting. He should use his Besivance, Ilevro, and Durezol at 3 p.m. and 8 p.m. and sleep with a rigid shield. I will see him for his 1-day postoperative tomorrow. DICTATING PHYSICIAN: EMERITA DESIR M.D. 1209M 1120 PHY#: [id number] ID: [id number] JOB#: [id number] ACCT: [id number] cc:EMERITA DESIR M.D. >
== END 2018-08-06 13:12 | disposition home or self-care (01) ==
LOC: SC 10:18
PROVIDERS: ATTEND Internal Medicine
DX: H25.813 Combined forms of age-related cataract, bilateral (principal); E11.9 Type 2 diabetes mellitus without complications; I10 Essential (primary) hypertension; E66.9 Obesity, unspecified; Z68.38 Body mass index [BMI] 38.0-38.9, adult; Z79.899 Other long term (current) drug therapy; Z88.2 Allergy status to sulfonamides; Z79.4 Long term (current) use of insulin; Z79.82 Long term (current) use of aspirin
CPT/HCPCS: 66984; 82962; V2632; J2250; J3490 ×2; A9270; J0171; J3010; J2370; 142

== ENCOUNTER 2018-12-17 09:19 | Day surgery (SDC) | payer MEDICARE, OTHER ==
[~2018-12-17 09:19] MED LIST changes: +CHONDR SU A NA/HYALUR INTRAOC KIT (SURGICARE) ONE; +EPINEPHRINE INJ/PF 1 MG/1 ML AMPULE ONE; +KETOROLAC TROMETHAMINE 0.45% 4 DROP/0.4 ML DROPERETTE OD PRN; -KETOROLAC TROMETHAMINE 0.45% 4 DROP/0.4 ML DROPERETTE OS PRN; +LIDOCAINE 1%/PHENYLEPHRINE 1.5% 1 ML VIAL ONE
[2018-12-17] MEDS: TETRACAINE HCL 0.5% OPH SOLN 4 ML OD PRN ×3 (10:00→10:26)
[2018-12-17] MEDS: CYCLOPENTOLATE 0.2%/PHENYLEPHRINE 1% OPH SOLN 2 ML OD PRN ×3 (10:01→10:22)
[2018-12-17] MEDS: BESIFLOXACIN HCL 0.6% OPH SUSP 5 ML BOTTLE OD PRN ×4 (10:01→10:48)
[2018-12-17] MEDS: TROPICAMIDE 1% OPH SOLN 3 ML OD PRN ×3 (10:01→10:22)
[2018-12-17] MEDS ORDERED: MIDAZOLAM 2 MG/2 ML INJ ONE (10:13)
[2018-12-17] MEDS ORDERED: FENTANYL CITRATE INJ/PF 100 MCG/2 ML AMPUL ONE (10:13)
[2018-12-17] MEDS: DORZOLAMIDE HCL 2%/TIMOLOL MALEAT 0.5% OPH SOLN 10 ML OD PRN ×2 (10:48)
--- NOTE | 2018-12-17 19:33 | [facility] OPERATIVE REPORT E ---
[facility] Operative Report NAME: JAREN SIERRA AGE: 68Y DATE OF SURGERY: 12/17/2018 ROOM: PREOPERATIVE DIAGNOSIS: CATARACT, RIGHT EYE. POSTOPERATIVE DIAGNOSIS: CATARACT, RIGHT EYE. OPERATION: Cataract extraction with insertion of an IOL of the right eye. SURGEON: EMERITA DESIR M.D. ANESTHESIA: Topical. PROCEDURE: After obtaining appropriate consent, the patient's right eye was prepped and draped in sterile fashion as well as the surgeon in a sterile manner and cataract surgery was started. First a paracentesis blade was used to make a side-port incision. Viscoelastic was used to inflate the anterior chamber. Next a 2.4 mm incision was made with a 2.4 mm blade, clear corneal temporally. A continuous capsulorrhexis was made using a cystotome and Utrata forceps. Following this hydrodissection was carried out to make the lens fully loose and mobile and it was rotated 90 degrees. Following this, a qualcb-yxg-suwfdka technique was used to phacoemulsify the lens with a CDE of 6.19. The remaining cortex was removed with irrigation/aspiration. Provisc was instilled into the capsular bag to inflate the bag. A SN60WF, 18.0 diopter lens was placed. The remaining viscoelastic material was removed with irrigation/aspiration. Following this, the incision was found to be watertight. Besivance was instilled into the eye and a protective shield was placed over the eye. The patient returned to the postoperative recovery in stable condition. DICTATING PHYSICIAN: EMERITA DESIR M.D. 5020M [id number] PHY#: [id number] ID: [id number] JOB#: [id number] ACCT: [id number] cc:EMERITA DESIR M.D. >
--- NOTE | 2018-12-17 19:33 | [facility] DISCHARGE SUMMARY E ---
[facility] Discharge Summary NAME: JAREN SIERRA AGE: 68Y ADMITTED: 12/17/2018 DISCHARGED: 12/17/2018 HOSPITAL COURSE: This is a 68-year-old patient who underwent cataract extraction of the right eye. DIAGNOSIS: CATARACT, RIGHT EYE. He underwent surgery because he was having trouble reading small print, like medicine bottles. DISCHARGE INSTRUCTIONS: He should be on a regular diet. No bending at his waist, no heavy lifting. He should use his Besivance, Ilevro, and Durezol at 3 p.m. and 8 p.m. and sleep with a rigid shield. I will see him for his 1 day postoperative tomorrow. DICTATING PHYSICIAN: EMERITA DESIR M.D. 5020M 193 PHY#: [id number] ID: [id number] JOB#: [id number] ACCT: [id number] cc:EMERITA DESIR M.D. >
== END 2018-12-17 11:38 | disposition home or self-care (01) ==
LOC: SC 09:19
PROVIDERS: ATTEND Internal Medicine
DX: H25.811 Combined forms of age-related cataract, right eye (principal); H57.03 Miosis; Z96.1 Presence of intraocular lens; E11.9 Type 2 diabetes mellitus without complications; I11.9 Hypertensive heart disease without heart failure; K21.9 Gastro-esophageal reflux disease without esophagitis; E66.9 Obesity, unspecified; G47.30 Sleep apnea, unspecified; Z88.2 Allergy status to sulfonamides; Z68.39 Body mass index [BMI] 39.0-39.9, adult; Z79.82 Long term (current) use of aspirin; Z79.899 Other long term (current) drug therapy; Z79.84 Long term (current) use of oral hypoglycemic drugs; Z79.4 Long term (current) use of insulin
CPT/HCPCS: 66984; 82962; V2632; J2250; J3490 ×2; A9270; J0171; J3010; J2370; 142

== ENCOUNTER 2018-12-26 08:51 | Observation (INO) | payer MEDICARE, OTHER ==
[2018-12-26] MEDS ORDERED: MORPHINE SULFATE 10 MG/ML INJ IV ONE (09:26)
[2018-12-26] MEDS ORDERED: ONDANSETRON HCL INJ/PF 4 MG/2 ML SDV IV ONE (09:26)
[2018-12-26 10:28] LABS: ABSOLUTE EOSINOPHILS # (AUTO) 0.3 10^3/uL (0.0-0.6); ABSOLUTE LYMPHOCYTES (AUTO) 1.1 10^3/uL (0.5-4.7); ABSOLUTE MONOCYTES (AUTO) 0.6 10^3/uL (0.1-1.4); BASOPHILS % (AUTO) 0.5 % (0-2); EOSINOPHILS % (AUTO) 3.5 % (0-6); HEMATOCRIT 35.4 % (37.9-51.0); HEMOGLOBIN 12.4 g/dL (13.5-17.0); LYMPHOCYTES % (AUTO) 14.1 % (13-45); MEAN CORPUSCULAR HEMOGLOBIN 30.9 pg (27.0-33.4); MEAN CORPUSCULAR HGB CONC 34.9 g/dL (32.0-36.0); MEAN CORPUSCULAR VOLUME 88 fl (80-97); MONOCYTES % (AUTO) 7.7 % (3-13); PLATELET COUNT 176 10^3/uL (150-450); RED BLOOD COUNT 4.01 10^6/uL (4.35-5.55); RED CELL DISTRIBUTION WIDTH 13.5 % (11.5-14.0); SEGMENTED NEUTROPHILS % (AUTO) 74.2 % (42-78); TOTAL CELLS COUNTED % (AUTO) 100 %; WHITE BLOOD COUNT 8.1 10^3/uL (4.0-10.5)
[2018-12-26 10:33] LABS: ALANINE AMINOTRANSFERASE 30 U/L (21-72); ALBUMIN 3.8 g/dL (3.5-5.0); ALKALINE PHOSPHATASE 130 U/L (38-126); ANION GAP 9 (5-19); ASPARTATE AMINO TRANSFERASE 16 U/L (17-59); BILIRUBIN,DIRECT 0.3 mg/dL (0.0-0.4); BILIRUBIN,TOTAL 0.5 mg/dL (0.2-1.3); BLOOD UREA NITROGEN 27 mg/dL (7-20); CALCIUM 10.1 mg/dL (8.4-10.2); CARBON DIOXIDE 24 mmol/L (22-30); CHLORIDE 102 mmol/L (98-107); CREATINE KINASE 80 U/L (55-170); GLUCOSE 349 mg/dL (75-110); POTASSIUM 4.2 mmol/L (3.6-5.0); SODIUM 135.4 mmol/L (137-145); TOTAL PROTEIN 5.9 g/dL (6.3-8.2)
[2018-12-26 10:42] LABS: CREATINE KINASE MB 2.91 ng/mL (<4.55)
[2018-12-26 10:43] LABS: TROPONIN I < 0.012 ng/mL
--- NOTE | 2018-12-26 10:50 | RADIOLOGY REPORT (SQ) ---
EXAM DESCRIPTION: CHEST SINGLE VIEW COMPLETED DATE/TIME: 12/26/2018 10:10 am REASON FOR STUDY: chest pain COMPARISON: Chest films 04/26/2018, 04/13/2018, 03/10/2018 EXAM PARAMETERS: NUMBER OF VIEWS: One view. TECHNIQUE: Single frontal radiographic view of the chest acquired. RADIATION DOSE: NA LIMITATIONS: None. FINDINGS: LUNGS AND PLEURA: No opacities, masses or pneumothorax. No pleural effusion. MEDIASTINUM AND HILAR STRUCTURES: No masses. Contour normal. HEART AND VASCULAR STRUCTURES: Stable marked cardiomegaly with old sternotomy and CABG with left atri al appendage clip BONES: No acute findings. HARDWARE: Old CABG OTHER: No other significant finding. IMPRESSION: Stable cardiomegaly. No acute findings TECHNICAL DOCUMENTATION: JOB ID: [id number]- All Rights Reserved Reading location - IP/workstation name: [email or web address]
[2018-12-26] MEDS ORDERED: INSULIN REG, HUMAN 100 UNIT/ML 3 ML VIAL (PYX) IV ONE (12:28)
--- NOTE | 2018-12-26 14:27 | ER Document Report ---
ED General - General Chief Complaint: Chest Pain > 30 Stated Complaint: CHEST PAIN Time Seen by Provider: 12/26/18 09:12 Primary Care Provider: RAMSEY WALKER MD [Primary Care Provider] - Follow up as needed TRAVEL OUTSIDE OF THE [place] IN LAST 30 DAYS: No - HPI Notes: Patient is a 68-year-old gentleman comes in for evaluation of left-sided chest pain. He cannot describe it in any way. He states it "just hurts." He had aspirin and nitroglycerin in route without any relief. He is never had pain like this before. He denies any associated nausea, diaphoresis, shortness of b reath, near syncope. He states the pain came on while he was sitting on the end of his bed. It has been constant, nothing seems to change in any way. - Related Data Allergies/Adverse Reactions: Sulfa (Sulfonamide Antibiotics) Allergy (Mild, Verified 12/26/18 09:07) rash Past Medical History - General Information source: Patient - Social History Smoking Status: Never Smoker Chew tobacco use (# tins/day): No Frequency of alcohol use: None Drug Abuse: None Family History: Reviewed & Not Pertinent, DM Patient has suicidal ideation: No Patient has homicidal ideation: No - Past Medical History Cardiac Medical History: Reports: Hx Atrial Fibrillation, Hx Coronary Artery Disease, Hx Hypercholesterolemia, Hx Hypertension, Hx Peripheral Vascular Disease - History of a renal vascular shunt for hypertension Denies: Hx Heart Attack Pulmonary Medical History: Reports: Hx Bronchitis, Hx Pneumonia, Hx Sleep Apnea Denies: Hx Asthma Neurological Medical History: Denies: Hx Cerebrovascular Accident, Hx Seizures Endocrine Medical History: Reports: Hx Diabetes Mellitus Type 1, Hx Diabetes Mellitus Type 2 Renal/ Medical History: Denies: Hx Peritoneal Dialysis GI Medical History: Reports: Hx Gastroesophageal Reflux Disease. Denies: Hx Hepatitis, Hx Hiatal Hernia, Hx Ulcer Musculoskeletal Medical History: Denies Hx Arthritis, Reports Hx Gout Psychiatric Medical History: Denies: Hx Depression Infectious Medical History: Denies: Hx Hepatitis Past Surgical History: Reports: Hx Cardiac Catheterization, Hx Cardiac Surgery - bypass 2014, Hx Coronary Artery Bypass Graft - x 2, Hx Coronary Stent, Hx Kidney (Renal Surgery) - stent placement, Hx Nose Surgery - SINUS, Hx Open Heart Surgery - 2 VESSELS, Hx Orthopedic Surgery - left shoulder 2010, back x 3. Denies: Hx Pacemaker - Immunizations Hx Diphtheria, Pertussis, Tetanus Vaccination: Yes Hx Pneumococcal Vaccination: 09/29/07 Review of Systems - Review of Systems Constitutional: No symptoms reported EENT: No symptoms reported Cardiovascular: See HPI Respiratory: No symptoms reported Gastrointestinal: No symptoms reported Genitourinary: No symptoms reported Musculoskeletal: No symptoms reported Skin: No symptoms reported Neurological/Psychological: No symptoms reported Physical Exam - Vital signs Notes: Pulse 67, blood pressure 149/69, O2 sats 87% on room air, respiratory rate is 18 and unlabored. Afebrile. - Notes Notes: Vital signs reviewed, please refer to chart. Patient is normocephalic, atraumatic. Pupils equal round, reactive to light. Neck is supple without meningismus. Heart is regular rate and rhythm. Lungs are clear to auscultation bilaterally. 12 excursion is equal bilaterally. Chest wall is nontender. Abdomen is soft, nontender, normoactive bowel sounds throughout. Extremities without cyanosis, clubbing. No posterior calf tenderness. Peripheral pulses are equal. Skin is warm and dry. Patient is awake, alert, neurological exam is nonfocal. Course - Re-evaluation Re-evalutation: 12/26/18 14:25 Patient presented to the emergency department for evaluation. He complains of a chest pain that he cannot further describe. He was given further nitroglycerin without any change. He was given morphine with only minimal improvement. Patient refused further morphine. He had Jesus been given aspirin in route. He was placed on a groundwater monitoring technician and labs are obtained. EKG reveals right bundle branch block. Cardiac enzymes are negative x2. Chest x-ray shows no acute findings. Patient's family was still very concerned. I did consult Dr. rCuz. He asked that a sed rate and a CT angiogram be performed, and that the patient be admitted. I spoke with Dr. Dalal who accepted the patient and asked that I speak to nurse practitioner Kierra Rivero. Awaiting phone call from her to accept the patient. - Laboratory Result Diagrams: 12/26/18 10:00 12/26/18 10:00 Laboratory results interpreted by me: 12/26/18 12/26/18 10:00 10:00 RBC 4.01 L Hgb 12.4 L Hct 35.4 L Sodium 135.4 L BUN 27 H Est GFR (Non-Af Amer) 57 L Glucose 349 H AST 16 L Alkaline Phosphatase 130 H Total Protein 5.9 L - Diagnostic Test Radiology reviewed: Reports reviewed - No acute process - EKG Interpretation by Me Additional EKG results interpreted by me: 12/26/18 14:28 Sinus mechanism with a rate of 63 bpm. First-degree AV block. Left axis deviation, right bundle branch block. No acute ST changes concerning for infarction. Discharge - Discharge Clinical Impression: Chest pain Condition: Stable Disposition: ADMITTED OBSERVATION Admitting Provider: Hospitalist - [facility] Admitted: Telemetry Referrals: RAMSEY WALKER MD [Primary Care Provider] - Follow up as needed
[2018-12-26] MEDS ORDERED: ALBUTEROL SULFATE 0.083% NEB 2.5 MG/3 ML AMPUL NEB PRN (15:16)
[2018-12-26] MEDS ORDERED: MAGNESIUM HYDROXIDE SUSP 30 ML UDCUP PO PRN (15:16)
[2018-12-26] MEDS ORDERED: MAG HYDROX/AL HYDROX/SIMETH SUSP 30 ML UDCUP PO PRN (15:16)
[2018-12-26] MEDS ORDERED: ONDANSETRON HCL INJ/PF 4 MG/2 ML SDV IV PRN (15:16)
[2018-12-26] MEDS ORDERED: ACETAMINOPHEN 325 MG TABLET PO PRN (15:16)
[2018-12-26] MEDS ORDERED: NITROGLYCERIN 0.4 MG/TAB 25 TAB/BOTTLE SL PRN (15:26)
[2018-12-26] MEDS ORDERED: MORPHINE SULFATE 10 MG/ML INJ IV PRN (15:26)
[2018-12-26] MEDS ORDERED: NORMAL SALINE 1000 ML 1,000 ML IV PRN (15:32)
--- NOTE | 2018-12-26 17:08 | RADIOLOGY REPORT (SQ) ---
EXAM DESCRIPTION: CTA CHEST COMPLETED DATE/TIME: 12/26/2018 4:26 pm REASON FOR STUDY: chest pain E11.65 TYPE 2 DIABETES MELLITUS WITH HYPERGLYCEMIA R07.9 CHEST PAIN, UNSPECIFIED COMPARISON: 07/15/2014. TECHNIQUE: CT scan of the chest performed using helical scanning technique with dynamic intravenous contrast injection. Images reviewed with lung, soft tissue and bone windows. Reconstructed coronal and sagittal MPR images reviewed. Additional 3 dimensional post-processing performed to develop Maximal Intensity Projection images (AK P). All images stored on PACS. All CT scanners at this facility use dose modulation, iterative reconstruction, and/or weight based d osing when appropriate to reduce radiation dose to as low as reasonably achievable (ALARA). [facility]: Dose Right [facility]: CareDose [facility]: Dose Right [facility]: Teradose 4D [facility]: ShareRoot CONTRAST TYPE AND DOSE: contrast/concentration: Isovue 350.00 mg/ml; Total Contrast Delivered: 90.0 ml; Total Saline Delivered: 80.0 ml Contrast bolus optimized for the pulmonary arteries. Not diagnostic for the aorta. RENAL FUNCTION: BUN 27 creatinine 1.25. RADIATION DOSE: CT Rad equipment meets quality standard of care and radiation dose reduction techniq ues were employed. CTDIvol: 35.6 - 74.4 mGy. DLP: 1424 mGy-cm. . LIMITATIONS: None. FINDINGS: LUNGS AND PLEURA: Mild chronic scarring. No masses, infiltrates, or pneumothorax. No ple ural effusions or pleural calcifications. AORTA AND GREAT VESSELS: No aneurysm. Contrast bolus not optimized for the aorta. HEART: No pericardial effusion. No significant coronary artery calcifications. PULMONARY ARTERIES: No emboli visualized in the main pulmonary arteries or the segmental branches. HILAR AND MEDIASTINAL STRUCTURES: No identified masses or abnormal nodes. HARDWARE: Sternotomy wires and coronary bypass markers. UPPER ABDOMEN: No significant findings. Limited exam. THYROID AND OTHER SOFT TISSUES: No masses. No adenopathy. BONES: No acute or significant finding. 3D MIPS: Confirm above findings. OTHER: No other significant finding. IMPRESSION: NORMAL CTA OF THE CHEST. NO PULMONARY EMBOLI. COMMENT: Quality ID # [id number]: Final reports with documentation of one or more dose reduction techniques (e.g., Automated exposure control, adjustment of the mA and/or kV according to patient size, use of iterative reconstruction technique) TECHNICAL DOCUMENTATION: JOB ID: [id number] [employer]- All Rights Reserved Reading location - IP/workstation name: [email or web address]
[2018-12-26] MEDS ORDERED: DEXTROSE 50%-WATER 25 GM/50 ML DISP.SYRIN IV PRN ×2 (17:11)
[2018-12-26] MEDS ORDERED: GLUCAGON,HUMAN RECOMB 1 MG INJ IM PRN (17:11)
[2018-12-26] MEDS ORDERED: DEXTROSE 40% GEL 15 GM TUBE PO PRN ×2 (17:11)
--- NOTE | 2018-12-26 17:21 | PDOC H&P ---
History of Present Illness Admission Date/PCP: 12/26/18 14:51 RAMSEY WALKER MD Patient complains of: chest pain History of Present Illness: JAREN SIERRA is a 68 year old male with a past medical history significant for CABG x3, CAD, hypertension, hyperlipidemia, diastolic CHF, COPD, IDDM, morbid obesity, and RICHARD who presented to the emergency department today with a complaint of sudden onset left-sided chest pain while at rest radiating to his mid back worsened by deep inspiration and cough but not by position changes or range of motion. Patient reports that the discomfort is a chronic ache that becomes sharp with inspiration; denies associated symptoms of dizziness, diaphoresis, dyspnea, nausea. Evaluation in the emergency department is unremarkable with stable vital signs (hypertensive with blood pressure of 150/80), unremarkable laboratory evaluation (Other than mild dehydration; CR 1.25 with baseline of 1.0 and BUN of 27), normal troponins x2, Benign chest x-ray, and EKG demonstrating a right bundle branch block without ST segment changes or acute findings. The case was discussed with Dr. Cruz by the emergency department provider who advised overnight admission to continue trending cardiac enzymes. He is referred to the hospitalist service for admission and management of the above stated complaints. Past Medical History Cardiac Medical History: Reports: Atrial Fibrillation, Coronary Artery Disease, Hyperlipidema, Hypertension, Peripheral Vascular Disease - History of a renal vascular shunt for hypertension Denies: Myocardial Infarction Pulmonary Medical History: Reports: Bronchitis, Pneumonia, Sleep Apnea Denies: Asthma Neurological Medical History: Denies: Seizures Endocrine Medical History: Reports: Diabetes Mellitus Type 2, Hypothyroidism, Obesity GI Medical History: Reports: Gastroesophageal Reflux Disease Denies: Hepatitis, Hiatal Hernia Musculoskeltal Medical History: Reports: Gout Denies: Arthritis Psychiatric Medical History: Denies: Depression Hematology: Denies: Anemia, Sickle Cell Disease Past Surgical History Past Surgical History: Reports: Cardiac Catheterization, Coronary Artery Bypass Graft - x 2, Coronary Stent, Orthopedic Surgery - left shoulder 2011, back x 3 Denies: Pacemaker Social History Information Source: Patient Lives with: Spouse/Significant other Smoking Status: Never Smoker Frequency of Alcohol Use: None Hx Recreational Drug Use: No Drugs: None Hx Prescription Drug Abuse: No Family History Family History: Reviewed & Not Pertinent, DM Parental Family History Reviewed: Yes Children Family History Reviewed: Yes Sibling(s) Family History Reviewed.: Yes Medication/Allergy Home Medications: Aspirin [Ecotrin 81 mg EC Tablet] 81 mg PO DAILY 12/26/18 Atorvastatin Calcium [Lipitor 40 mg Tablet] 40 mg PO QHS 12/26/18 Carvedilol [Coreg 25 mg Tablet] 25 mg PO Q12 12/26/18 Cetirizine HCl [Zyrtec 10 mg Tablet] 10 mg PO DAILY 12/26/18 Cholecalciferol (Vitamin D3) [Vitamin D3 400 Unit Tablet] 800 unit PO DAILY 12/26/18 Colchicine [Colcrys 0.6 mg Tablet] 0.6 mg PO DAILY 12/26/18 Dabigatran Etexilate Mesylate [Pradaxa 150 mg Capsule] 150 mg PO Q12 12/26/18 Furosemide [Lasix 40 mg Tablet] 80 mg PO BID 12/26/18 Gabapentin [Neurontin 300 mg Capsule] 300 mg PO Q8 12/26/18 Insulin Aspart [Novolog Insulin (Aspart) 100 unit/mL] 25 units SQ MEALS 12/26/18 Insulin Glargine,Hum.rec.anlog [Lantus Insulin 100 Unit/1 ml 10 ml] 70 units SQ QPM 12/26/18 Lisinopril [Zestril] 20 mg PO DAILY 12/26/18 Metformin HCl [Glucophage 500 mg Tablet] 500 mg PO BID 12/26/18 Pramipexole Di-HCl [Mirapex] 1 mg PO QHS 12/26/18 Ropinirole HCl [Requip 2 mg Tablet] 2 mg PO BID 12/26/18 Spironolactone [Aldactone 25 mg Tablet] 25 mg PO Q12 12/26/18 Tamsulosin HCl [Flomax 0.4 mg Cap.sr] 0.4 mg PO DAILY 12/26/18 Terazosin HCl [Hytrin] 4 mg PO DAILY 12/26/18 Allergies/Adverse Reactions: Sulfa (Sulfonamide Antibiotics) Allergy (Mild, Verified 12/26/18 09:07) rash Review of Systems Constitutional: ABSENT: chills, fever(s), headache(s), weight gain, weight loss Eyes: ABSENT: visual disturbances Ears: ABSENT: hearing changes Cardiovascular: PRESENT: chest pain. ABSENT: dyspnea on exertion, edema, orthropnea, palpitations Respiratory: ABSENT: cough, hemoptysis Gastrointestinal: ABSENT: abdominal pain, constipation, diarrhea, hematemesis, hematochezia, nausea, vomiting Genitourinary: ABSENT: dysuria, hematuria Musculoskeletal: ABSENT: joint swelling Integumentary: ABSENT: rash, wounds Neurological: ABSENT: abnormal gait, abnormal speech, confusion, dizziness, focal weakness, syncope Psychiatric: ABSENT: anxiety, depression, homidical ideation, suicidal ideation Endocrine: ABSENT: cold intolerance, heat intolerance, polydipsia, polyuria Hematologic/Lymphatic: ABSENT: easy bleeding, easy bruising Physical Exam Vital Signs: Intake & Output 12/25/18 12/26/18 12/27/18 06:59 06:59 06:59 Output Total 700 Balance -700 Weight 129.274 kg General appearance: PRESENT: no acute distress, morbidly obese, well-developed, well-nourished Head exam: PRESENT: atraumatic, normocephalic Eye exam: PRESENT: conjunctiva pink, EOMI, PERRLA. ABSENT: scleral icterus Ear exam: PRESENT: normal external ear exam Mouth exam: PRESENT: moist, tongue midline Neck exam: ABSENT: carotid bruit, JVD, lymphadenopathy, thyromegaly Respiratory exam: PRESENT: clear to auscultation eladio, decreased breath sounds - Secondary to poor inspiratory effort and body habitus, symmetrical, unlabored. ABSENT: rales, rhonchi, wheezes Cardiovascular exam: PRESENT: RRR. ABSENT: diastolic murmur, rubs, systolic murmur Pulses: PRESENT: normal dorsalis pedis pul Vascular exam: PRESENT: normal capillary refill GI/Abdominal exam: PRESENT: normal bowel sounds, soft. ABSENT: distended, guarding, mass, organolmegaly, rebound, tenderness Rectal exam: PRESENT: deferred Extremities exam: PRESENT: full ROM. ABSENT: calf tenderness, clubbing, pedal edema Neurological exam: PRESENT: alert, awake, oriented to person, oriented to place, oriented to time, oriented to situation, CN II-XII grossly intact. ABSENT: motor sensory deficit Psychiatric exam: PRESENT: appropriate affect, normal mood. ABSENT: homicidal ideation, suicidal ideation Skin exam: PRESENT: dry, intact, warm. ABSENT: cyanosis, rash Results Laboratory Results: 12/26/18 10:00 12/26/18 10:00 12/26/18 12/26/18 10:00 10:00 WBC 8.1 RBC 4.01 L Hgb 12.4 L Hct 35.4 L MCV 88 MCH 30.9 MCHC 34.9 RDW 13.5 Plt Count 176 Seg Neutrophils % 74.2 Lymphocytes % 14.1 Monocytes % 7.7 Eosinophils % 3.5 Basophils % 0.5 Absolute Neutrophils 6.0 Absolute Lymphocytes 1.1 Absolute Monocytes 0.6 Absolute Eosinophils 0.3 Absolute Basophils 0.0 Sodium 135.4 L Potassium 4.2 Chloride 102 Carbon Dioxide 24 Anion Gap 9 BUN 27 H Creatinine 1.25 Est GFR ( Amer) > 60 Est GFR (Non-Af Amer) 57 L Glucose 349 H Calcium 10.1 Total Bilirubin 0.5 AST 16 L ALT 30 Alkaline Phosphatase 130 H Total Protein 5.9 L Albumin 3.8 12/26/18 12/26/18 12/26/18 10:00 10:00 13:34 Creatine Kinase 80 CK-MB (CK-2) 2.91 Troponin I < 0.012 < 0.012 Impressions: Chest X-Ray 12/26/18 09:25 IMPRESSION: Stable cardiomegaly. No acute findings Assessment and Plan - Diagnosis (1) Chest pain Qualifiers: Chest pain type: unspecified Qualified Code(s): R07.9 - Chest pain, unspecified Is this a current diagnosis for this admission?: Yes Plan: Patient with left side chest pain, worsens with deep inspiration and cough is not reproducible otherwise on exam. Have significant cardiac history and risk factors including hypertension, hyperlipidemia, CAD (previous CABG) age, and morbid obesity. EKG shows right bundle branch block without ST segment changes. Chest x-ray is benign. CT of the chest is pending. Troponins are negative x2. He is admitted to the medical floor on continuous cardiac telemetry. Dr. Melendrez has been consulted. We will continue to trend troponins. Check A1c, TSH, and lipid panel in the morning. Nitro sublingual tabs as needed for pain. IV morphine for breakthrough pain. Daily aspirin and statin therapy. (2) COPD (chronic obstructive pulmonary disease) Qualifiers: COPD type: unspecified COPD Qualified Code(s): J44.9 - Chronic obstructive pulmonary disease, unspecified Is this a current diagnosis for this admission?: Yes Plan: Stable and without exacerbation at this time. As needed oxygen to maintain saturations >89% As needed nebulizer treatments. (3) Diabetes Qualifiers: Diabetes mellitus type: type 2 Chronic kidney disease stage: stage 3 (moderate) Is this a current diagnosis for this admission?: Yes Plan: Continue home dose Lantus. Continue NovoLog 20 units with meals. Accu-Cheks before meals and at bedtime with sliding scale coverage. Consistent carb diet. Hypoglycemia protocol. (4) HLD (hyperlipidemia) Is this a current diagnosis for this admission?: Yes Plan: Cardiac diet. Home dose statin therapy. (5) HTN (hypertension) Qualifiers: Hypertension type: essential hypertension Qualified Code(s): I10 - Essential (primary) hypertension Is this a current diagnosis for this admission?: Yes Plan: Continue the patient's home medication regiment of Spironolactone, carvedilol, lisinopril, terazosin, and Lasix. Cardiology is consulted. - Time Time Spent with patient: 35 or more minutes Medications reviewed and adjusted accordingly: Yes Anticipated discharge: Home Within: within 24 hours
[2018-12-26] MEDS ORDERED: INSULIN GLARGINE,HUM.REC.ANLOG 1,000 UNIT/10 ML VIAL SUBCUT SCH (18:00)
[2018-12-26] MEDS ORDERED: FUROSEMIDE 40 MG TABLET PO SCH (18:00)
[2018-12-26] MEDS ORDERED: INSULIN GLARGINE,HUM.REC.ANLOG 1,000 UNIT/10 ML VIAL (PYX) SUBCUT ONE (18:05)
[2018-12-26] MEDS ORDERED: ROPINIROLE HCL 2 MG TABLET ONE (18:23)
[2018-12-26] MEDS ORDERED: KETOROLAC TROMETHAMINE 10 MG TABLET PO ONE (19:00)
[2018-12-26] MEDS: ROPINIROLE HCL 2 MG TABLET PO SCH (19:01)
[2018-12-26] MEDS: IPRATROPIUM/ALBUTEROL 0.5-2.5 MG/3 ML AMPUL NEB SCH (21:45)
[2018-12-26] MEDS ORDERED: PRAMIPEXOLE DI-HCL 0.5 MG TABLET PO SCH (22:00)
[2018-12-26] MEDS ORDERED: INSULIN LISPRO 100 UNIT/ML 3 ML VIAL SUBCUT SCH (22:00)
[2018-12-26] MEDS ORDERED: ATORVASTATIN CALCIUM 40 MG TABLET PO SCH (22:00)
[2018-12-26] MEDS ORDERED: ATORVASTATIN CALCIUM 20 MG TABLET PO SCH (22:00)
[2018-12-26] MEDS ORDERED: PRAMIPEXOLE DI-HCL 0.5 MG TABLET ONE (22:35)
[2018-12-26] MEDS: GABAPENTIN 300 MG CAPSULE PO SCH (22:48)
[2018-12-26] MEDS: DABIGATRAN ETEXILATE 150 MG CAPSULE PO SCH (22:48)
[2018-12-26] MEDS: SPIRONOLACTONE 25 MG TABLET PO SCH (22:48)
[2018-12-26] MEDS: HEPARIN SOD (PORCINE) 5,000 UNIT/ML 1 ML SYRINGE SUBCUT SCH (22:49)
[2018-12-26] MEDS: CARVEDILOL 12.5 MG TABLET PO SCH (22:49)
[2018-12-26] MEDS: INSULIN LISPRO 100 UNIT/ML 3 ML VIAL SUBCUT SCH (22:50)
--- NOTE | 2018-12-26 22:57 | PDOC CONSULTATION ---
Consultation-Blank Consultation: CARDIOLOGY CONSULTATION by Dr. Farrah Cruz on 12/26/2018. Patient seen at 4 PM on 12/26/2018. REASON FOR CONSULTATION: Patient with history of coronary artery disease, history of coronary bypass graft surgery admitted with left-sided chest pain.
[2018-12-27 04:49] LABS: HEMATOCRIT 34.5 % (37.9-51.0); HEMOGLOBIN 12.1 g/dL (13.5-17.0); MEAN CORPUSCULAR HEMOGLOBIN 31.1 pg (27.0-33.4); MEAN CORPUSCULAR HGB CONC 35.1 g/dL (32.0-36.0); MEAN CORPUSCULAR VOLUME 89 fl (80-97); PLATELET COUNT 171 10^3/uL (150-450); RED BLOOD COUNT 3.88 10^6/uL (4.35-5.55); RED CELL DISTRIBUTION WIDTH 13.7 % (11.5-14.0); WHITE BLOOD COUNT 8.3 10^3/uL (4.0-10.5)
[2018-12-27 05:24] LABS: ANION GAP 9 (5-19); BLOOD UREA NITROGEN 30 mg/dL (7-20); CALCIUM 9.4 mg/dL (8.4-10.2); CARBON DIOXIDE 23 mmol/L (22-30); CHLORIDE 102 mmol/L (98-107); CHOLESTEROL 133.32 mg/dL (0-200); GLUCOSE 274 mg/dL (75-110); POTASSIUM 4.6 mmol/L (3.6-5.0); SODIUM 133.6 mmol/L (137-145); TRIGLYCERIDES 384 mg/dL (<150)
[2018-12-27 05:34] LABS: DIRECT LDL 57 mg/dL (<100)
[2018-12-27 05:36] LABS: VLDL CHOLESTEROL 76.8 mg/dL (10-31)
[2018-12-27] MEDS ORDERED: PANTOPRAZOLE SODIUM 20 MG TABLET.DR PO SCH (06:00)
[2018-12-27] MEDS: HEPARIN SOD (PORCINE) 5,000 UNIT/ML 1 ML SYRINGE SUBCUT SCH (06:04)
[2018-12-27] MEDS: GABAPENTIN 300 MG CAPSULE PO SCH (06:05)
[2018-12-27] MEDS ORDERED: INSULIN LISPRO 100 UNIT/ML 3 ML VIAL SUBCUT SCH (08:00)
[2018-12-27] MEDS: IPRATROPIUM/ALBUTEROL 0.5-2.5 MG/3 ML AMPUL NEB SCH (08:20)
[2018-12-27] MEDS: INSULIN LISPRO 100 UNIT/ML 3 ML VIAL SUBCUT SCH ×2 (08:24→12:41)
--- NOTE | 2018-12-27 09:18 | PDOC DISCHARGE SUMMARY ---
General - Admit/Disc Date/PCP Admission Date/Primary Care Provider: 12/26/18 14:51 RAMSEY WALKER MD Discharge Date: 12/27/18 - Additional Information Resuscitation Status: Full Code Home Medications: Aspirin [Ecotrin 81 mg EC Tablet] 81 mg PO DAILY 12/26/18 Atorvastatin Calcium [Lipitor 40 mg Tablet] 40 mg PO QHS 12/26/18 Carvedilol [Coreg 25 mg Tablet] 25 mg PO Q12 12/26/18 Cetirizine HCl [Zyrtec 10 mg Tablet] 10 mg PO DAILY 12/26/18 Cholecalciferol (Vitamin D3) [Vitamin D3 400 Unit Tablet] 800 unit PO DAILY 12/26/18 Colchicine [Colcrys 0.6 mg Tablet] 0.6 mg PO DAILY 12/26/18 Dabigatran Etexilate Mesylate [Pradaxa 150 mg Capsule] 150 mg PO Q12 12/26/18 Furosemide [Lasix 40 mg Tablet] 80 mg PO BID 12/26/18 Gabapentin [Neurontin 300 mg Capsule] 300 mg PO Q8 12/26/18 Insulin Aspart [Novolog Insulin (Aspart) 100 unit/mL] 25 units SQ MEALS 12/26/18 Insulin Glargine,Hum.rec.anlog [Lantus Insulin 100 Unit/1 ml 10 ml] 70 units SQ QPM 12/26/18 Lisinopril [Zestril] 20 mg PO DAILY 12/26/18 Metformin HCl [Glucophage 500 mg Tablet] 500 mg PO BID 12/26/18 Pramipexole Di-HCl [Mirapex] 1 mg PO QHS 12/26/18 Ropinirole HCl [Requip 2 mg Tablet] 2 mg PO BID 12/26/18 Spironolactone [Aldactone 25 mg Tablet] 25 mg PO Q12 12/26/18 Tamsulosin HCl [Flomax 0.4 mg Cap.sr] 0.4 mg PO DAILY 12/26/18 Terazosin HCl [Hytrin] 4 mg PO DAILY 12/26/18 History of Present Illness History of Present Illness: JAREN SIERRA is a 68 year old male with a past medical history significant for CABG x3, CAD, hypertension, hyperlipidemia, diastolic CHF, COPD, IDDM, morbid obesity, and RICHARD who presented to the emergency department today with a complaint of sudden onset left-sided chest pain while at rest radiating to his mid back worsened by deep inspiration and cough but not by position changes or range of motion. Patient reports that the discomfort is a chronic ache that becomes sharp with inspiration; denies associated symptoms of dizziness, diap horesis, dyspnea, nausea. Evaluation in the emergency department is unremarkable with stable vital signs (hypertensive with blood pressure of 150/80), unremarkable laboratory evaluation (Other than mild dehydration; CR 1.25 with baseline of 1.0 and BUN of 27), normal troponins x2, Benign chest x-ray, and EKG demonstrating a right bundle branch block without ST segment changes or acute findings. The case was discussed with Dr. Cruz by the emergency department provider who advised overnight admission to continue trending cardiac enzymes. He is referred to the hospitalist service for admission and management of the above stated complaints. Hospital Course Hospital Course: Mr. Sierra is a very pleasant 68 years old male patient with multiple comorbidities including COPD, diabetes mellitus, hyperlipidemia, hypertension, coronary artery disease status post coronary artery bypass graft, morbid obesity and diastolic CHF presented with chief complaint of chest pain localized to his left side which he denies nonradiating and associated with deep breathing. Patient admitted for observation. He still states of cardiac enzymes are negat mark. EKG changes. He remained chest pain-free. Patient has been evaluated by Dr. Cruz we will schedule him to see him in his office in the coming week. This morning I seen patient sleeping quietly. He does not complain any chest pain. His vitals are within normal limits. Patient stable enough to go home today. Advised him to keep up his upcoming appointment with Dr. Cruz. I will continue all his medications. Physical Exam Vital Signs: Temp Pulse Resp BP Pulse Ox 97.3 F 54 L 18 142/66 H 94 12/27/18 08:02 12/27/18 08:20 12/27/18 08:20 12/27/18 08:02 12/27/18 08:20 Intake & Output 12/26/18 12/27/18 12/28/18 06:59 06:59 06:59 Intake Total 400 Output Total 1300 Balance -900 Weight 130.7 kg General appearance: PRESENT: no acute distress, morbidly obese Head exam: PRESENT: atraumatic Eye exam: PRESENT: conjunctiva pink Mouth exam: PRESENT: moist Neck exam: ABSENT: carotid bruit, JVD, lymphadenopathy, thyromegaly Respiratory exam: PRESENT: clear to auscultation eladio. ABSENT: rales, rhonchi, wheezes Cardiovascular exam: PRESENT: RRR. ABSENT: diastolic murmur, rubs, systolic murmur Neurological exam: PRESENT: alert, awake, oriented to time, oriented to situation Results Laboratory Results: 12/27/18 04:11 12/27/18 04:11 12/26/18 12/26/18 12/27/18 10:00 10:00 04:11 WBC 8.1 8.3 RBC 4.01 L 3.88 L Hgb 12.4 L 12.1 L Hct 35.4 L 34.5 L MCV 88 89 MCH 30.9 31.1 MCHC 34.9 35.1 RDW 13.5 13.7 Plt Count 176 171 Seg Neutrophils % 74.2 Lymphocytes % 14.1 Monocytes % 7.7 Eosinophils % 3.5 Basophils % 0.5 Absolute Neutrophils 6.0 Absolute Lymphocytes 1.1 Absolute Monocytes 0.6 Absolute Eosinophils 0.3 Absolute Basophils 0.0 Sodium 135.4 L Potassium 4.2 Chloride 102 Carbon Dioxide 24 Anion Gap 9 BUN 27 H Creatinine 1.25 Est GFR ( Amer) > 60 Est GFR (Non-Af Amer) 57 L Glucose 349 H Calcium 10.1 Total Bilirubin 0.5 AST 16 L ALT 30 Alkaline Phosphatase 130 H Total Protein 5.9 L Albumin 3.8 Triglycerides Cholesterol LDL Cholesterol Direct VLDL Cholesterol HDL Cholesterol TSH 12/27/18 12/27/18 04:11 04:11 WBC RBC Hgb Hct MCV MCH MCHC RDW Plt Count Seg Neutrophils % Lymphocytes % Monocytes % Eosinophils % Basophils % Absolute Neutrophils Absolute Lymphocytes Absolute Monocytes Absolute Eosinophils Absolute Basophils Sodium 133.6 L Potassium 4.6 Chloride 102 Carbon Dioxide 23 Anion Gap 9 BUN 30 H Creatinine 1.25 Est GFR ( Amer) > 60 Est GFR (Non-Af Amer) 57 L Glucose 274 H Calcium 9.4 Total Bilirubin AST ALT Alkaline Phosphatase Total Protein Albumin Triglycerides 384 H Cholesterol 133.32 LDL Cholesterol Direct 57 VLDL Cholesterol 76.8 H HDL Cholesterol 21 L TSH 3.38 12/26/18 12/26/18 12/26/18 10:00 10:00 13:34 Creatine Kinase 80 CK-MB (CK-2) 2.91 Troponin I < 0.012 < 0.012 12/26/18 19:50 Creatine Kinase CK-MB (CK-2) Troponin I 0.014 Impressions: Chest/Abdomen CTA 12/26/18 00:00 IMPRESSION: NORMAL CTA OF THE CHEST. NO PULMONARY EMBOLI. Chest X-Ray 12/26/18 09:25 IMPRESSION: Stable cardiomegaly. No acute findings Qualifiers - * PATIENT BEING DISCHARGED WITH ANY OF THE FOLLOWING DIAGNOSIS: Heart Failure VTE patient discharged on overlapping Therapy?: No Reason(s) for not prescribing Overlap Therapy:: Not indicated Stroke Pt being discharged on Anti-thrombolytic therapy?: No Reason(s) for not prescribing Anti-thrombolytic therapy:: Not indicated Stroke Pt being discharged on Anti-coagulation therapy?: No Reason(s) for not prescribing Anti-coagulation therapy:: Not indicated Stroke Pt being discharged on Statins?: No Reason(s) for not prescribing Statins therapy:: Not indicated NE Pt being discharged on Aspirin therapy?: No Reason(s) for not prescribing Aspirin therapy:: Not indicated NE Pt being discharged on Statins?: No Reason(s) for not prescribing Statin therapy:: Not indicated NE Pt discharged ACEI/ARBS?: No Reason(s) for not prescribing ACEI/ARBS:: Not indicated HF Pt being discharged on ACEI for LVEF less than 40%?: No Reason(s) for not prescribing ACEI:: Not indicated HF Pt being discharged on ARBS for LVEF less than 40%?: No Reason(s) for not prescribing ARBS:: Not indicated HF Pt with Afib discharged with Warfarin?: No Reason(s) for not prescribing Warfarin:: Not indicated HF Pt discharged on evidence-based Beta Maria Eugenia:: No Reason(s) for not prescribing evidence-based Beta Maria Eugenia:: Not indicated
[2018-12-27] MEDS ORDERED: LISINOPRIL 10 MG TABLET PO SCH (10:00)
[2018-12-27] MEDS ORDERED: CETIRIZINE 10 MG TABLET PO SCH (10:00)
[2018-12-27] MEDS ORDERED: ASPIRIN 81 MG TABLET, CHEWABLE PO SCH (10:00)
[2018-12-27] MEDS ORDERED: ASPIRIN 81 MG TABLET, ENT COATED PO SCH (10:00)
[2018-12-27] MEDS ORDERED: CHOLECALCIFEROL (D3) 400 UNIT TABLET PO SCH (10:00)
[2018-12-27] MEDS ORDERED: DOXAZOSIN MESYLATE 4 MG TABLET PO SCH (10:00)
[2018-12-27] MEDS ORDERED: TAMSULOSIN HCL 0.4 MG CAP.SR.24H PO SCH (10:00)
[2018-12-27] MEDS: SPIRONOLACTONE 25 MG TABLET PO SCH (10:23)
[2018-12-27] MEDS: CARVEDILOL 12.5 MG TABLET PO SCH (10:24)
[2018-12-27] MEDS: DABIGATRAN ETEXILATE 150 MG CAPSULE PO SCH (10:24)
[2018-12-27] MEDS: ROPINIROLE HCL 2 MG TABLET PO SCH (10:25)
--- NOTE | 2018-12-27 11:08 | EKG REPORT ---
SEVERITY:- ABNORMAL ECG - SINUS RHYTHM RIGHT BUNDLE BRANCH BLOCK : Confirmed by: Farrah Cruz MD 27-Dec-2018 11:08:05
[2018-12-27 12:20] VITALS: BP 129/68
--- NOTE | 2018-12-27 20:12 | EKG REPORT ---
SEVERITY:- ABNORMAL ECG - SINUS RHYTHM FIRST DEGREE AV BLOCK RBBB AND LAFB : Confirmed by: Farrah Cruz MD 27-Dec-2018 20:11:01
== END 2018-12-27 13:10 | disposition home or self-care (01) ==
LOC: ER 08:51 → EH 14:51 → 5 16:46
PROVIDERS: ADMIT Internal Medicine; ATTEND Internal Medicine
DX: R07.89 Other chest pain (principal); J44.9 Chronic obstructive pulmonary disease, unspecified; E11.51 Type 2 diabetes mellitus with diabetic peripheral angiopathy without gangrene; E11.22 Type 2 diabetes mellitus with diabetic chronic kidney disease; I13.0 Hypertensive heart and chronic kidney disease with heart failure and stage 1 through stage 4 chronic kidney disease, or unspecified chronic kidney disease; N18.3 Chronic kidney disease, stage 3 (moderate); I11.0 Hypertensive heart disease with heart failure; I50.30 Unspecified diastolic (congestive) heart failure; E78.5 Hyperlipidemia, unspecified; I25.10 Atherosclerotic heart disease of native coronary artery without angina pectoris; M10.9 Gout, unspecified; E66.01 Morbid (severe) obesity due to excess calories; G47.33 Obstructive sleep apnea (adult) (pediatric); I45.10 Unspecified right bundle-branch block; I48.91 Unspecified atrial fibrillation; I44.0 Atrioventricular block, first degree; E86.0 Dehydration; Z95.1 Presence of aortocoronary bypass graft; Z79.82 Long term (current) use of aspirin; Z79.899 Other long term (current) drug therapy; Z79.4 Long term (current) use of insulin; Z95.828 Presence of other vascular implants and grafts; Z79.02 Long term (current) use of antithrombotics/antiplatelets; Z95.5 Presence of coronary angioplasty implant and graft
CPT/HCPCS: 93005 ×2; 96376; 99285; 96374; 96375; 36415 ×2; 82553; 82962 ×2; 82550; 84443; 85025; 85027; 85652; 80048; 80053; 84484; 83036; 80061; 71045; 71275; 93010 ×2; 94640 ×2; G0378 ×2; A9270 ×23; J1644; J2270; J2405; J3490; J1815; J7620

== ENCOUNTER 2019-05-17 21:15 | Emergency (ER) | payer MEDICARE, OTHER ==
--- NOTE | 2019-05-17 23:10 | ER Document Report ---
ED General - General Chief Complaint: Weakness Stated Complaint: WEAKNESS Time Seen by Provider: 05/17/19 22:56 TRAVEL OUTSIDE OF THE [place] IN LAST 30 DAYS: No - HPI Notes: Patient is a 69-year-old male that presents to the emergency department for chief complaint of nausea and malaise. Patient states around 7 PM tonight he was at [employer] and began to feel "sick". He states he felt nauseated but did not vomit. He reports feeling fatigued but not lightheaded. Patient denies associated chest pain, shortness of breath or palpitations. Patient denies recent illness fevers or chills. He denies any as sociated abdominal pain or urinary complaints. He does state he checked his blood sugar and it was greater than 500. Patient took his evening dose of NovoLog and Lantus. Accu-Chek when he presented to the ER was 299 and he does state he is feeling improved. Past Medical History: RICHARD, CKD, hypertension, hyperlipidemia, CAD, diabetes, COPD Past Surgical History: Viewed in chart Social History: Lives at home independently. Denies tobacco alcohol or drug use Family History: Reviewed and noncontributory for presenting illness Allergies: Reviewed, see documented allergy list. REVIEW OF SYSTEMS: CONSTITUTIONAL : No fever No chills No diaphoresis No recent illness EENT: No vision changes No congestion No sore throat CARDIOVASCULAR: No chest pain No palpitations RESPIRATORY: No shortness of breath No cough No difficulty breathing GASTROINTESTINAL: No abdominal pain nausea No vomiting No diarrhea GENITOURINARY: No dysuria No hematuria No difficulty urinating MUSCULOSKELETAL: No back pain No leg pain No arm pain SKIN: No rashes No lesions LYMPHATIC: No swollen, enlarged glands. NEUROLOGICAL: No lightheadedness No headache No weakness No paresthesias PSYCHIATRIC: No anxiety No depression PHYSICAL EXAMINATION: Vital signs reviewed, nursing noted reviewed. GENERAL: Well-appearing, obese and in no acute distress. HEAD: Atraumatic, normocephalic. EYES: Eyes appear normal, extraocular movements intact, sclera anicteric, conju nctiva are normal. ENT: nares patent, oropharynx clear without exudates. Dry mucous membranes. NECK: Normal range of motion, supple without lymphadenopathy LUNGS: Breath sounds clear to auscultation bilaterally and equal. No wheezes rales or rhonchi. HEART: Tachycardic rate and regular rhythm without murmurs ABDOMEN: Protuberant, soft, nontender. No rebound, guarding, or rigidity. EXTREMITIES: Nontender, good range of motion, no pitting or edema. NEUROLOGICAL: No focal neurological deficits. Moves all extremities spontaneously Motor and sensory grossly intact on exam. PSYCH: Normal mood, normal affect. SKIN: Warm, Dry, normal turgor, no rashes or lesions noted on exposed skin - Related Data Allergies/Adverse Reactions: Sulfa (Sulfonamide Antibiotics) Allergy (Mild, Verified 12/26/18 09:07) rash Past Medical History - Social History Smoking Status: Never Smoker Family History: Reviewed & Not Pertinent, DM Patient has suicidal ideation: No Patient has homicidal ideation: No - Past Medical History Cardiac Medical History: Reports: Hx Atrial Fibrillation, Hx Congestive Heart Failure, Hx Coronary Artery Disease, Hx Hypercholesterolemia, Hx Hypertension, Hx Peripheral Vascular Disease - History of a renal vascular shunt for hypertension Denies: Hx Heart Attack Pulmonary Medical History: Reports: Hx Bronchitis, Hx COPD, Hx Pneumonia, Hx Sleep Apnea Denies: Hx Asthma, Hx Tuberculosis Neurological Medical History: Denies: Hx Cerebrovascular Accident, Hx Seizures Endocrine Medical History: Reports: Hx Diabetes Mellitus Type 1, Hx Diabetes Mellitus Type 2, Hx Hypothyroidism Renal/ Medical History: Denies: Hx Benign Prostatic Hyperplasia, Hx End Stage Renal Disease, Hx Kidney Stones, Hx Peritoneal Dialysis GI Medical History: Reports: Hx Gastroesophageal Reflux Disease. Denies: Hx Cirrhosis, Hx Hepatitis, Hx Hiatal Hernia, Hx Ulcer Musculoskeletal Medical History: Denies Hx Arthritis, Reports Hx Gout, Denies Hx Multiple Sclerosis Psychiatric Medical History: Denies: Hx Bipolar Disorder, Hx Depression, Hx Schizophrenia Infectious Medical History: Denies: Hx Hepatitis Past Surgical History: Reports: Hx Cardiac Catheterization, Hx Cardiac Surgery - bypass 2014, Hx Coronary Artery Bypass Graft - x 2, Hx Coronary Stent, Hx Kidney (Renal Surgery) - stent placement, Hx Nose Surgery - SINUS, Hx Open Heart Surgery - 2 VESSELS, Hx Orthopedic Surgery - left shoulder 2010, back x 3. Denies: Hx Pacemaker - Immunizations Hx Diphtheria, Pertussis, Tetanus Vaccination: Yes Hx Pneumococcal Vaccination: 09/29/07 Physical Exam - Vital signs Vitals: Pulse Resp BP Pulse Ox 108 H 20 148/80 H 97 05/17/19 21:25 05/17/19 21:25 05/17/19 21:25 05/17/19 21:25 Course - Re-evaluation Re-evalutation: 05/17/19 23:09 Vitals reviewed. Nursing notes reviewed. Patient presented to the ER with complaint of nausea and hyperglycemia. He is tachycardic with mildly dry mucous membranes. Patient has a history of CKD but is urinating normally. He will be started on IV fluids for his tachycardia and hyperglycemia. 05/18/19 01:06 Patient reevaluated. He states he is feeling much better. His blood sugar is now down to 120. The rest of his work-up is unremarkable. There is no sign of DKA. He is not acutely anemic and has stable electrolytes. Patient symptoms likely related to his transient hyperglycemia which has now improved. He was tachycardic at presentation which has also improved with IV fluids. His current heart rate is 76. Patient will follow with his PCP in the office for reeva luation in the next few days. He will return for new or worsening symptoms. He will monitor his diet and blood sugars at home closely. He is stable for discharge. Laboratory 05/17/19 05/17/19 05/17/19 21:54 23:35 23:47 WBC 9.5 RBC 4.50 Hgb 13.3 L Hct 39.0 MCV 87 MCH 29.5 MCHC 34.1 RDW 12.9 Plt Count 194 Total Counted 100 Seg Neutrophils % Not Reportable Seg Neuts % (Manual) 66 Lymphocytes % Not Reportable Lymphocytes % (Manual) 13 Atypical Lymphs % 2 Monocytes % Not Reportable Monocytes % (Manual) 17 H Eosinophils % Not Reportable Eosinophils % (Manual) 2 Basophils % Not Reportable Basophils % (Manual) 0 Absolute Neutrophils Not Reportable Abs Neuts (Manual) 6.3 Absolute Lymphocytes Not Reportable Abs Lymphs (Manual) 1.4 Absolute Monocytes Not Reportable Abs Monocytes (Manual) 1.6 H Absolute Eosinophils Not Reportable Absolute Eos (Manual) 0.2 Absolute Basophils Not Reportable Abs Basophils (Manual) 0.0 Platelet Comment ADEQUATE Poikilocytosis SLIGHT Tear Drop Cells SLIGHT VBG pH VBG pCO2 VBG HCO3 VBG Base Excess Sodium Potassium Chloride Carbon Dioxide Anion Gap BUN Creatinine Est GFR ( Amer) Est GFR (Non-Af Amer) Glucose POC Glucose 299 H Calcium Total Bilirubin Direct Bilirubin Neonat Total Bilirubin Neonat Direct Bilirubin Neonat Indirect Bili AST ALT Alkaline Phosphatase Troponin I Total Protein Albumin Urine Color STRAW Urine Appearance CLEAR Urine pH 7.0 Ur Specific Metaline 1.022 Urine Protein NEGATIVE Urine Glucose (UA) >=500 H Urine Ketones NEGATIVE Urine Blood NEGATIVE Urine Nitrite NEGATIVE Urine Bilirubin NEGATIVE Urine Urobilinogen NEGATIVE Ur Leukocyte Esterase NEGATIVE Urine RBC (Auto) 1 Urine Ascorbic Acid NEGATIVE 05/17/19 05/17/19 05/17/19 23:47 23:47 23:58 WBC RBC Hgb Hct MCV MCH MCHC RDW Plt Count Total Counted Seg Neutrophils % Seg Neuts % (Manual) Lymphocytes % Lymphocytes % (Manual) Atypical Lymphs % Monocytes % Monocytes % (Manual) Eosinophils % Eosinophils % (Manual) Basophils % Basophils % (Manual) Absolute Neutrophils Abs Neuts (Manual) Absolute Lymphocytes Abs Lymphs (Manual) Absolute Monocytes Abs Monocytes (Manual) Absolute Eosinophils Absolute Eos (Manual) Absolute Basophils Abs Basophils (Manual) Platelet Comment Poikilocytosis Tear Drop Cells VBG pH 7.41 VBG pCO2 39.7 VBG HCO3 24.3 VBG Base Excess -0.3 Sodium 137.5 Potassium 4.0 Chloride 101 Carbon Dioxide 25 Anion Gap 12 BUN 29 H Creatinine 1.10 Est GFR ( Amer) > 60 Est GFR (Non-Af Amer) > 60 Glucose 120 H POC Glucose Calcium 10.2 Total Bilirubin 0.6 Direct Bilirubin 0.3 Neonat Total Bilirubin Not Reportable Neonat Direct Bilirubin Not Reportable Neonat Indirect Bili Not Reportable AST 17 ALT 19 Alkaline Phosphatase 122 Troponin I 0.017 Total Protein 6.8 Albumin 4.4 Urine Color Urine Appearance Urine pH Ur Specific Metaline Urine Protein Urine Glucose (UA) Urine Ketones Urine Blood Urine Nitrite Urine Bilirubin Urine Urobilinogen Ur Leukocyte Esterase Urine RBC (Auto) Urine Ascorbic Acid Laboratory 05/17/19 05/17/19 05/17/19 21:54 23:35 23:47 WBC 9.5 RBC 4.50 Hgb 13.3 L Hct 39.0 MCV 87 MCH 29.5 MCHC 34.1 RDW 12.9 Plt Count 194 Total Counted 100 Seg Neutrophils % Not Reportable Seg Neuts % (Manual) 66 Lymphocytes % Not Reportable Lymphocytes % (Manual) 13 Atypical Lymphs % 2 Monocytes % Not Reportable Monocytes % (Manual) 17 H Eosinophils % Not Reportable Eosinophils % (Manual) 2 Basophils % Not Reportable Basophils % (Manual) 0 Absolute Neutrophils Not Reportable Abs Neuts (Manual) 6.3 Absolute Lymphocytes Not Reportable Abs Lymphs (Manual) 1.4 Absolute Monocytes Not Reportable Abs Monocytes (Manual) 1.6 H Absolute Eosinophils Not Reportable Absolute Eos (Manual) 0.2 Absolute Basophils Not Reportable Abs Basophils (Manual) 0.0 Platelet Comment ADEQUATE Poikilocytosis SLIGHT Tear Drop Cells SLIGHT VBG pH VBG pCO2 VBG HCO3 VBG Base Excess Sodium Potassium Chloride Carbon Dioxide Anion Gap BUN Creatinine Est GFR ( Amer) Est GFR (Non-Af Amer) Glucose POC Glucose 299 H Calcium Total Bilirubin Direct Bilirubin Neonat Total Bilirubin Neonat Direct Bilirubin Neonat Indirect Bili AST ALT Alkaline Phosphatase Troponin I Total Protein Albumin Urine Color STRAW Urine Appearance CLEAR Urine pH 7.0 Ur Specific Metaline 1.022 Urine Protein NEGATIVE Urine Glucose (UA) >=500 H Urine Ketones NEGATIVE Urine Blood NEGATIVE Urine Nitrite NEGATIVE Urine Bilirubin NEGATIVE Urine Urobilinogen NEGATIVE Ur Leukocyte Esterase NEGATIVE Urine RBC (Auto) 1 Urine Ascorbic Acid NEGATIVE 05/17/19 05/17/19 05/17/19 23:47 23:47 23:58 WBC RBC Hgb Hct MCV MCH MCHC RDW Plt Count Total Counted Seg Neutrophils % Seg Neuts % (Manual) Lymphocytes % Lymphocytes % (Manual) Atypical Lymphs % Monocytes % Monocytes % (Manual) Eosinophils % Eosinophils % (Manual) Basophils % Basophils % (Manual) Absolute Neutrophils Abs Neuts (Manual) Absolute Lymphocytes Abs Lymphs (Manual) Absolute Monocytes Abs Monocytes (Manual) Absolute Eosinophils Absolute Eos (Manual) Absolute Basophils Abs Basophils (Manual) Platelet Comment Poikilocytosis Tear Drop Cells VBG pH 7.41 VBG pCO2 39.7 VBG HCO3 24.3 VBG Base Excess -0.3 Sodium 137.5 Potassium 4.0 Chloride 101 Carbon Dioxide 25 Anion Gap 12 BUN 29 H Creatinine 1.10 Est GFR ( Amer) > 60 Est GFR (Non-Af Amer) > 60 Glucose 120 H POC Glucose Calcium 10.2 Total Bilirubin 0.6 Direct Bilirubin 0.3 Neonat Total Bilirubin Not Reportable Neonat Direct Bilirubin Not Reportable Neonat Indirect Bili Not Reportable AST 17 ALT 19 Alkaline Phosphatase 122 Troponin I 0.017 Total Protein 6.8 Albumin 4.4 Urine Color Urine Appearance Urine pH Ur Specific Metaline Urine Protein Urine Glucose (UA) Urine Ketones Urine Blood Urine Nitrite Urine Bilirubin Urine Urobilinogen Ur Leukocyte Esterase Urine RBC (Auto) Urine Ascorbic Acid Chest X-Ray 05/17/19 23:05 IMPRESSION: No evidence of acute cardiopulmonary disease. - Vital Signs Vital signs: Temp Pulse Resp BP Pulse Ox 108 H 14 148/80 H 99 05/17/19 21:25 05/17/19 21:46 05/17/19 21:25 05/17/19 21:46 - Laboratory Result Diagrams: 05/17/19 23:47 05/17/19 23:47 Laboratory results interpreted by me: 05/17/19 05/17/19 05/17/19 21:54 23:35 23:47 Hgb 13.3 L Monocytes % (Manual) 17 H Abs Monocytes (Manual) 1.6 H BUN Glucose POC Glucose 299 H Urine Glucose (UA) >=500 H 05/17/19 23:47 Hgb Monocytes % (Manual) Abs Monocytes (Manual) BUN 29 H Glucose 120 H POC Glucose Urine Glucose (UA) - EKG Interpretation by Me Additional EKG results interpreted by me: 05/17/19 23:21 Interpreted by myself [id number]: Sinus tachycardia, rate 112, PVC, RBBB and LAFB, no STEMI Discharge - Discharge Clinical Impression: Hyperglycemia, Nausea Condition: Stable Disposition: HOME, SELF-CARE Additional Instructions: Please return to the emergency department if you have any worsening, or concern of your symptoms. Please return to the emergency department if you develop chest pain, difficulty breathing, severe abdominal pain, or ongoing vomiting. Please follow-up with your primary care physician in 2-3 days and any other recommended physicians. If prescribed, take all medications as directed. If you have any questions or concerns do not hesitate to return the emergency department for evaluation. Avoid any sweets or carbohydrate foods and monitor your blood sugar closely.
[2019-05-17] MEDS ORDERED: NORMAL SALINE 1000 ML 1,000 ML IV ONE (23:22)
--- NOTE | 2019-05-17 23:40 | RADIOLOGY REPORT (SQ) ---
XR CHEST 1 VIEW EXAM DATE: 05/17/2019 11:05 PM CDT HISTORY: Nausea. COMPARISON: 12/26/2018 FINDINGS: The heart size is mildly enlarged with prior CABG noted. Atrial appendage clip is also seen. No consolidation, pleural effusion, or pneumothorax is seen. No acute bony findings. IMPRESSION: No evidence of acute cardiopulmonary disease.
[2019-05-18] LABS: HEMOGLOBIN 13.3 g/dL (13.5-17.0); MEAN CORPUSCULAR HEMOGLOBIN 29.5 pg (27.0-33.4); MEAN CORPUSCULAR HGB CONC 34.1 g/dL (32.0-36.0); MEAN CORPUSCULAR VOLUME 87 fl (80-97); PLATELET COUNT 194 10^3/uL (150-450); RED CELL DISTRIBUTION WIDTH 12.9 % (11.5-14.0); WHITE BLOOD COUNT 9.5 10^3/uL (4.0-10.5)
[2019-05-18 00:15] LABS: APPEARANCE,URINE CLEAR; BILIRUBIN,URINE NEGATIVE (NEGATIVE); COLOR,URINE STRAW; GLUCOSE, URINE >=500 mg/dL (NEGATIVE); KETONES,URINE NEGATIVE (NEGATIVE); LEUKOCYTE ESTERASE,URINE NEGATIVE (NEGATIVE); NITRITE,URINE NEGATIVE (NEGATIVE); PROTEIN,URINE NEGATIVE (NEGATIVE); URINE SPECIFIC GRAVITY 1.022; UROBILINOGEN,URINE NEGATIVE mg/dL (<2.0)
[2019-05-18 00:17] LABS: ALBUMIN 4.4 g/dL (3.5-5.0); ALKALINE PHOSPHATASE 122 U/L (38-126); ANION GAP 12 (5-19); ASPARTATE AMINO TRANSFERASE 17 U/L (17-59); BILIRUBIN,DIRECT 0.3 mg/dL (0.0-0.4); BILIRUBIN,TOTAL 0.6 mg/dL (0.2-1.3); BLOOD UREA NITROGEN 29 mg/dL (7-20); CALCIUM 10.2 mg/dL (8.4-10.2); CARBON DIOXIDE 25 mmol/L (22-30); CHLORIDE 101 mmol/L (98-107); GLUCOSE 120 mg/dL (75-110); TOTAL PROTEIN 6.8 g/dL (6.3-8.2)
[2019-05-18 00:42] LABS: ABSOLUTE LYMPHOCYTES# (MANUAL) 1.4 10^3/uL (0.5-4.7); ABSOLUTE MONOCYTES # (MANUAL) 1.6 10^3/uL (0.1-1.4); BASOPHILS % (MANUAL) 0 % (0-2); EOSINOPHILS % (MANUAL) 2 % (0-6); LYMPHOCYTES % (MANUAL) 13 % (13-45); MONOCYTES % (MANUAL) 17 % (3-13); SEGMENTED NEUTROPHILS % (MAN) 66 % (42-78); TOTAL CELLS COUNTED 100
[2019-05-18 00:44] LABS: PLATELET COMMENT ADEQUATE; POIKILOCYTOSIS SLIGHT; TEAR DROP CELLS SLIGHT
[2019-05-18 00:47] LABS: VENOUS BLOOD BASE EXCESS -0.3 mmol/L; VENOUS BLOOD HCO3 24.3 mmol/L (20-32); VENOUS BLOOD PCO2 39.7 mmHg (35-63); VENOUS BLOOD PH 7.41 (7.30-7.42)
[2019-05-18 01:44] VITALS: BP 132/65
--- NOTE | 2019-05-18 10:12 | EKG REPORT ---
SEVERITY:- ABNORMAL ECG - SINUS TACHYCARDIA VENTRICULAR PREMATURE COMPLEX RBBB AND LAFB PROBABLE LEFT VENTRICULAR HYPERTROPHY : Confirmed by: Farrah Cruz MD 18-May-2019 10:12:05
== END 2019-05-18 01:52 | disposition home or self-care (01) ==
LOC: ER 21:15
DX: E11.65 Type 2 diabetes mellitus with hyperglycemia (principal); R11.0 Nausea; R53.81 Other malaise; R53.1 Weakness; R00.0 Tachycardia, unspecified; Z79.4 Long term (current) use of insulin; Z95.1 Presence of aortocoronary bypass graft; Z88.2 Allergy status to sulfonamides
CPT/HCPCS: 93005; 36415; 82962; 85025; 80053; 81001; 84484; 82803; 71045; 93010; J7030; 96360; 99285

== ENCOUNTER → 2019-05-20 | Outpatient (CLI) | payer MEDICARE, OTHER ==
--- NOTE | 2019-05-20 15:47 | RADIOLOGY REPORT (SQ) ---
EXAM DESCRIPTION: U/S RETROPERITON (RENAL/AORTA) COMPLETED DATE/TIME: 05/20/2019 3:28 pm REASON FOR STUDY: N18.3 CHRONIC KIDNEY DISEASE, STAGE 3 (MODERATE) N18.3 CHRONIC KIDNEY DISEASE, ST AGE 1 (MODERATE) COMPARISON: CT SCAN 2017 TECHNIQUE: Dynamic and static grayscale images acquired of the kidneys and bladder and recorded on P ACS. Additional selected color Doppler and spectral images recorded. LIMITATIONS: None. FINDINGS: RIGHT KIDNEY: Normal size. Normal echogenicity. Multiple cysts. The largest is 4.6 c m. No hydronephrosis. No calcifications. LEFT KIDNEY: Normal size. Normal echogenicity. 2.6 cm cyst. No hydronephrosis. No calcificat ions. BLADDER: No masses. OTHER FINDINGS: No other significant finding. IMPRESSION: Renal cysts. No hydronephrosis. TECHNICAL DOCUMENTATION: JOB ID: [id number] [employer]- All Rights Reserved Reading location - IP/workstation name: [email or web address]
== END ==
LOC: RAD 14:03
PROVIDERS: ATTEND Internal Medicine
DX: N18.3 Chronic kidney disease, stage 3 (moderate) (principal); N28.1 Cyst of kidney, acquired
CPT/HCPCS: 76770

== ENCOUNTER 2019-08-16 10:12 | Emergency (ER) | payer MEDICARE, OTHER ==
[2019-08-16 10:31] VITALS: BP 161/79
--- NOTE | 2019-08-16 10:53 | ER Document Report ---
HPI - HPI Patient complains to provider of: Right ankle infection Time Seen by Provider: 08/16/19 10:44 Onset: Other Onset/Duration: Persistent Severity: Mild Pain Level: 1 Context: This 69-year-old male with history of diabetes presents emergency department with complaints of ant bite to the back of his right ankle. He reports he was bit by multiple and 6 or 7 weeks ago. He reports one area became infected he went to [facility] emergency department they placed him on doxy. He has not been taking doxy for the past 6 weeks. He reports the site is still little red and tender to touch. He denies fever vomiting diarrhea. Patient does have an appointment with his primary care provider in 2 weeks. Since he is a diabetic he worried about waiting. Associated Symptoms: None Exacerbated by: Denies Relieved by: Denies Similar symptoms previously: Yes Recently seen / treated by doctor: Yes - REPRODUCTIVE Reproductive: DENIES: : - MUSCULOSKELETAL Musculoskeletal: REPORTS: Extremity pain Past Medical History - General Information source: Patient - Social History Smoking Status: Unknown if Ever Smoked Chew tobacco use (# tins/day): No Frequency of alcohol use: None Drug Abuse: None Occupation: retired Lives with: Family Family History: Reviewed & Not Pertinent, DM Patient has suicidal ideation: No Patient has homicidal ideation: No - Past Medical History Cardiac Medical History: Reports: Hx Atrial Fibrillation, Hx Congestive Heart Failure, Hx Coronary Artery Disease, Hx Hypercholesterolemia, Hx Hypertension, Hx Peripheral Vascular Disease - History of a renal vascular shunt for hypertension Denies: Hx Heart Attack Pulmonary Medical History: Reports: Hx Bronchitis, Hx COPD, Hx Pneumonia, Hx Sleep Apnea Denies: Hx Asthma, Hx Tuberculosis Neurological Medical History: Denies: Hx Cerebrovascular Accident, Hx Seizures, Hx Parkinson's Disease Endocrine Medical History: Reports: Hx Diabetes Mellitus Type 1, Hx Diabetes Mellitus Type 2, Hx Hypothyroidism Renal/ Medical History: Denies: Hx Benign Prostatic Hyperplasia, Hx End Stage Renal Disease, Hx Kidney Stones, Hx Peritoneal Dialysis GI Medical History: Reports: Hx Gastroesophageal Reflux Disease. Denies: Hx Cirrhosis, Hx Hepatitis, Hx Hiatal Hernia, Hx Ulcer Musculoskeletal Medical History: Denies Hx Arthritis, Reports Hx Gout, Denies Hx Multiple Sclerosis Psychiatric Medical History: Denies: Hx Bipolar Disorder, Hx Depression, Hx Schizophrenia Infectious Medical History: Denies: Hx Hepatitis Past Surgical History: Reports: Hx Cardiac Catheterization, Hx Cardiac Surgery - bypass 2014, Hx Coronary Artery Bypass Graft - x 2, Hx Coronary Stent, Hx Kidney (Renal Surgery) - stent placement, Hx Nose Surgery - SINUS, Hx Open Heart Surgery - 2 VESSELS, Hx Orthopedic Surgery - left shoulder 2011, back x 3. Denies: Hx Pacemaker - Immunizations Hx Diphtheria, Pertussis, Tetanus Vaccination: Yes Hx Pneumococcal Vaccination: 09/29/07 Vertical Provider Document - CONSTITUTIONAL Agree With Documented VS: Yes Exam Limitations: No Limitations General Appearance: WD/WN, No Apparent Distress - INFECTION CONTROL TRAVEL OUTSIDE OF THE [place] IN LAST 30 DAYS: No - HEENT HEENT: Atraumatic, Normocephalic - NECK Neck: Supple - RESPIRATORY Respiratory: No Respiratory Distress - CARDIOVASCULAR Cardiovascular: Regular Rate - GI/ABDOMEN Gastrointestinal: Abdomen Soft, Abdomen Non-Tender - MUSCULOSKELETAL/EXTREMETIES Musculoskeletal/Extremeties: MAEW, FROM, Tender - right posterior ankle with slight erythema,no warmth, no discharge - NEURO Level of Consciousness: Awake, Alert, Appropriate Motor/Sensory: No Motor Deficit - DERM Integumentary: Warm, Dry Adult Front & Back Diagram: 1 - slight erythema no warmth no induration no pustule no drainage Course - Re-evaluation Re-evalutation: 08/16/19 11:53 69-year-old male with history of diabetes with persistent irritation from an anti-on the back of his right ankle. No fever vomiting diarrhea. Areas slightly red no warmth no induration no pustule no discharge. Will treat patient with 5-day course of Keflex. He was instructed to monitor the site if it becomes worse to return to the emergency department. But he was also instructed to definitely follow-up with his primary care provider as scheduled. He verbalized understanding to all instructions. Dictation of this chart was performed using voice recognition software; therefore, there may be some unintended grammatical errors. - Vital Signs Vital signs: Temp Pulse Resp BP Pulse Ox 98.9 F 87 18 161/79 H 98 08/16/19 10:31 08/16/19 10:31 08/16/19 10:31 08/16/19 10:31 08/16/19 10:31 Discharge - Discharge Clinical Impression: Insect bite Qualifiers: Encounter type: initial encounter Site of insect bite: ankle Laterality: right Qualified Code(s): S90.561A - Insect bite (nonvenomous), right ankle, initial encounter Condition: Stable Disposition: HOME, SELF-CARE Instructions: Cephalexin ([facility]), Insect Bites ([facility]) Additional Instructions: *You have been treated for a insect bite *Take medication as prescribed *Monitor the site for signs of infection such as increasing pain, redness, swelling, warmth *Keep the site clean *Follow up with your provider as scheduled *Return to ED for signs of increasing infection, worsening condition, changes, needs Prescriptions: Cephalexin Monohydrate [Keflex 500 mg Capsule] 500 mg PO QID #20 capsule Forms: Elevated Blood Pressure
== END 2019-08-16 10:59 | disposition home or self-care (01) ==
LOC: ER 10:12
DX: S90.561A Insect bite (nonvenomous), right ankle, initial encounter (principal); W57.XXXA Bitten or stung by nonvenomous insect and other nonvenomous arthropods, initial encounter; I48.91 Unspecified atrial fibrillation; I50.9 Heart failure, unspecified; E78.00 Pure hypercholesterolemia, unspecified; I11.0 Hypertensive heart disease with heart failure; J44.9 Chronic obstructive pulmonary disease, unspecified; E11.9 Type 2 diabetes mellitus without complications; Z95.1 Presence of aortocoronary bypass graft
CPT/HCPCS: 99281

== ENCOUNTER 2019-09-05 14:21 | Emergency (ER) | payer MEDICARE, OTHER ==
[2019-09-05 14:45] LABS: HEMATOCRIT 39.9 % (37.9-51.0); HEMOGLOBIN 14.1 g/dL (13.5-17.0); MEAN CORPUSCULAR HEMOGLOBIN 30.8 pg (27.0-33.4); MEAN CORPUSCULAR HGB CONC 35.4 g/dL (32.0-36.0); MEAN CORPUSCULAR VOLUME 87 fl (80-97); PLATELET COUNT 192 10^3/uL (150-450); RED BLOOD COUNT 4.58 10^6/uL (4.35-5.55); RED CELL DISTRIBUTION WIDTH 14.9 % (11.5-14.0); WHITE BLOOD COUNT 10.5 10^3/uL (4.0-10.5)
[2019-09-05 14:57] LABS: ALBUMIN 4.4 g/dL (3.5-5.0); ALKALINE PHOSPHATASE 110 U/L (38-126); ANION GAP 13 (5-19); ASPARTATE AMINO TRANSFERASE 22 U/L (17-59); BILIRUBIN,DIRECT 0.1 mg/dL (0.0-0.4); BILIRUBIN,TOTAL 0.8 mg/dL (0.2-1.3); BLOOD UREA NITROGEN 51 mg/dL (7-20); CALCIUM 9.9 mg/dL (8.4-10.2); CARBON DIOXIDE 24 mmol/L (22-30); CHLORIDE 99 mmol/L (98-107); CREATINE KINASE 105 U/L (55-170); GLUCOSE 211 mg/dL (75-110); POTASSIUM 4.6 mmol/L (3.6-5.0)
[2019-09-05 15:09] LABS: CREATINE KINASE MB 5.81 ng/mL (<4.55); TROPONIN I 0.013 ng/mL
[2019-09-05 15:11] LABS: ABSOLUTE LYMPHOCYTES# (MANUAL) 1.8 10^3/uL (0.5-4.7); ABSOLUTE MONOCYTES # (MANUAL) 0.2 10^3/uL (0.1-1.4); BASOPHILS % (MANUAL) 0 % (0-2); EOSINOPHILS % (MANUAL) 1 % (0-6); LYMPHOCYTES % (MANUAL) 17 % (13-45); MONOCYTES % (MANUAL) 2 % (3-13); SEGMENTED NEUTROPHILS % (MAN) 80 % (42-78); TOTAL CELLS COUNTED 100
[2019-09-05 15:13] LABS: ANISOCYTOSIS SLIGHT; PLATELET COMMENT ADEQUATE
--- NOTE | 2019-09-05 15:41 | RADIOLOGY REPORT (SQ) ---
EXAM DESCRIPTION: CHEST 2 VIEWS COMPLETED DATE/TIME: 09/05/2019 3:30 pm REASON FOR STUDY: Chest Pain COMPARISON: 05/26/2019 EXAM PARAMETERS: NUMBER OF VIEWS: two views TECHNIQUE: Digital Frontal and Lateral radiographic views of the chest acquired. RADIATION DOSE: NA LIMITATIONS: none FINDINGS: LUNGS AND PLEURA: No opacities, masses or pneumothorax. No pleural effusion. MEDIASTINUM AND HILAR STRUCTURES: No masses or contour abnormalities. HEART AND VASCULAR STRUCTURES: Cardiomegaly. No evidence for failure. BONES: No acute findings. HARDWARE: CABG. OTHER: No other significant finding. IMPRESSION: NO ACUTE RADIOGRAPHIC FINDING IN THE CHEST. TECHNICAL DOCUMENTATION: JOB ID: [id number] [employer]- All Rights Reserved Reading location - IP/workstation name: [email or web address]
--- NOTE | 2019-09-05 16:42 | ER Document Report ---
ED Cardiac - General Chief Complaint: Chest Pain Stated Complaint: CHEST PAIN Time Seen by Provider: 09/05/19 16:21 Notes: 69-year-old male with coronary artery disease status post CABG, atrial fibrillation with cardioversion, CHFEF 55%, insulin-dependent diabetes mellitus requiring 145 units a day presents to the emergency department with acute fatigue and chest pain since yesterday. Patient states that he took a nitroglycerin tab at home and did get relief. He was given nitroglycerin sublingual 2 times by EMS and ASA 324 mg also. States that he is currently chest pain-free but does have reproducible chest pain with palpation over the left breast. Pain did not radiate. Had some nausea yesterday but currently none, no diaphoresis. Patient's supervisor fish processing is Dr. Amaro in [place]. TRAVEL OUTSIDE OF THE [place] IN LAST 30 DAYS: No - Related Data Allergies/Adverse Reactions: Sulfa (Sulfonamide Antibiotics) Allergy (Mild, Verified 09/05/19 14:53) rash Home Medications: Atorvastatin, Coreg, Pradax, Percocet, Lantus Solostar, Novolo g, Lasix, Allopurinol, Vit D3, Spironolactone, Colchicine, Losartan, Nitroglycerin, Gabapenting, Aspirin, Zyrtec, Mirapex, Flomax. Copy of patient's medication list made and placed on chart. Past Medical History - Social History Smoking Status: Never Smoker Chew tobacco use (# tins/day): No Frequency of alcohol use: None Drug Abuse: None Family History: Reviewed & Not Pertinent, DM Patient has suicidal ideation: No Patient has homicidal ideation: No - Past Medical History Cardiac Medical History: Reports: Hx Atrial Fibrillation, Hx Congestive Heart Failure, Hx Coronary Artery Disease, Hx Hypercholesterolemia, Hx Hypertension, Hx Peripheral Vascular Disease - History of a renal vascular shunt for hypertension Denies: Hx Heart Attack Pulmonary Medical History: Reports: Hx Bronchitis, Hx COPD, Hx Pneumonia, Hx Sleep Apnea Denies: Hx Asthma, Hx Tuberculosis Neurological Medical History: Denies: Hx Cerebrovascular Accident, Hx Seizures, Hx Parkinson's Disease Endocrine Medical History: Reports: Hx Diabetes Mellitus Type 1, Hx Diabetes Mellitus Type 2, Hx Hypothyroidism Renal/ Medical History: Denies: Hx Benign Prostatic Hyperplasia, Hx End Stage Renal Disease, Hx Kidney Stones, Hx Peritoneal Dialysis GI Medical History: Reports: Hx Gastroesophageal Reflux Disease. Denies: Hx Cirrhosis, Hx Hepatitis, Hx Hiatal Hernia, Hx Ulcer Musculoskeletal Medical History: Denies Hx Arthritis, Reports Hx Gout, Denies Hx Multiple Sclerosis Psychiatric Medical History: Denies: Hx Bipolar Disorder, Hx Depression, Hx Schizophrenia Infectious Medical History: Denies: Hx Hepatitis Past Surgical History: Reports: Hx Cardiac Catheterization, Hx Cardiac Surgery - bypass 2014, Hx Coronary Artery Bypass Graft - x 2, Hx Coronary Stent, Hx Kidney (Renal Surgery) - stent placement, Hx Nose Surgery - SINUS, Hx Open Heart Surgery - 2 VESSELS, Hx Orthopedic Surgery - left shoulder 2010, back x 3, Left Knee. Denies: Hx Pacemaker - Immunizations Hx Diphtheria, Pertussis, Tetanus Vaccination: Yes Hx Pneumococcal Vaccination: 09/29/07 Review of Systems - Review of Systems Constitutional: No symptoms reported EENT: No symptoms reported Cardiovascular: See HPI Respiratory: See HPI Gastrointestinal: No symptoms reported Genitourinary: No symptoms reported Male Genitourinary: No symptoms reported Musculoskeletal: No symptoms reported Skin: No symptoms reported Hematologic/Lymphatic: No symptoms reported Neurological/Psychological: No symptoms reported Physical Exam - Vital signs Vitals: Resp Pulse Ox 20 100 09/05/19 14:29 09/05/19 14:29 - Notes Notes: PHYSICAL EXAMINATION: Reviewed vital signs and charting by RN GENERAL: Alert, interacts well. No acute distress. HEAD: Normocephalic, atraumatic. EYES: Pupils equal and round. Extraocular movements intact. ENT: Oral mucosa moist, tongue midline. NECK: Full range of motion. Trachea midline. LUNGS: Clear to auscultation bilaterally, no wheezes, rales, or rhonchi. No respiratory distress. HEART: Regular rate and rhythm. No murmur ABDOMEN: soft, non-tender. Obese. Bowel sounds present EXTREMITIES: Moves all 4 extremities spontaneously. No edema, No cyanosis. PSYCH: Normal affect, normal mood. SKIN: Warm, dry, normal turgor. No rashes or lesions noted. Course - Re-evaluation Re-evalutation: 09/05/19 19:25 This very pleasant 69-year-old male presents with what appears to be new unstable angina. Patient with some chest pain that started yesterday after carrying some [employer] decorations. Patient does have reproducible chest wall pain but did initially have pain at rest relieved by nitroglycerin sublingual. Patient then very fatigued but has a negative cardiac work-up here in the emergency department with 2- troponins, EKG showed sinus rhythm with a right bundle branch block, rate of 71, normal axis, no evidence of ST segment elevations or depressions. I discussed the case with my attending, Dr. melendez, and also with Dr. Branch, supervisor fish processing on-call. Patient did not display any evidence of tachycardia, pain that radiates to the back, abdominal pain, so I very low suspicion for a AAA, aortic dissection, pulmonary embolism. Chest x- ray did not show any evidence of widened mediastinum. I have arranged very close follow-up for the patient with the negative work-up here in the emergency department and they both feel it is appropriate to discharge the patient home with follow-up with Dr. Branch tomorrow. I explained all this to patient and gave him very strict return precautions. 09/05/19 19:30 - Vital Signs Vital signs: Temp Pulse Resp BP Pulse Ox 98 F 57 L 15 148/82 H 97 09/05/19 14:30 09/05/19 14:30 09/05/19 17:43 09/05/19 17:44 09/05/19 17:44 - Laboratory Result Diagrams: 09/05/19 14:00 09/05/19 14:00 Laboratory results interpreted by me: 09/05/19 09/05/19 09/05/19 14:00 14:00 14:00 RDW 14.9 H Seg Neuts % (Manual) 80 H Monocytes % (Manual) 2 L Abs Neuts (Manual) 8.4 H Sodium 136.0 L BUN 51 H Creatinine 1.96 H Est GFR ( Amer) 41 L Est GFR (MDRD) Non-Af 34 L Glucose 211 H CK-MB (CK-2) 5.81 H Discharge - Discharge Clinical Impression: Chest pain Qualifiers: Chest pain type: unspecified Qualified Code(s): R07.9 - Chest pain, unspecified Fatigue Qualifiers: Fatigue type: unspecified Qualified Code(s): R53.83 - Other fatigue Condition: Stable Disposition: HOME, SELF-CARE Additional Instructions: You were seen today for chest pain. The exact cause of your pain is unclear. However, based on your cardiac enzyme testing, chest x-ray, and EKG it does not appear that it is from an immediately life-threatening cause at this time. Although your testing here is normal is critical that you follow-up with your supervisor fish processing tomorrow for continued evaluation of this chest pain and stress testing. I recommended you see your supervisor fish processing within the next 24-48 hours to be evaluated for consideration of a stress test. Please return to emergency de partment immediately if you have worsening of your chest pain, shortness of breath, vomiting, become unable to exert yourself due to pain or difficulty breathing, you pass out, or have any pain that radiates into your arms, jaw, or back. Please also return if you have any additional symptoms that are concerning to you. Referrals: BLESSING BRANCH MD [ACTIVE STAFF] - Follow up tomorrow (Please call Dr. Branch tomorrow for follow up assessment: [phone])
[2019-09-05 19:17] VITALS: BP 133/64
[2019-09-05 20:22] LABS: APPEARANCE,URINE CLEAR; BILIRUBIN,URINE NEGATIVE (NEGATIVE); COLOR,URINE YELLOW; GLUCOSE, URINE NEGATIVE (NEGATIVE); KETONES,URINE NEGATIVE (NEGATIVE); LEUKOCYTE ESTERASE,URINE NEGATIVE (NEGATIVE); NITRITE,URINE NEGATIVE (NEGATIVE); PROTEIN,URINE NEGATIVE (NEGATIVE); URINE SPECIFIC GRAVITY 1.016; UROBILINOGEN,URINE NEGATIVE mg/dL (<2.0)
--- NOTE | 2019-09-05 23:43 | EKG REPORT ---
SEVERITY:- ABNORMAL ECG - SINUS RHYTHM RBBB AND LAFB : Confirmed by: Farrah Cruz MD 05-Sep-2019 23:42:01
== END 2019-09-05 19:37 | disposition home or self-care (01) ==
LOC: ER 14:21
DX: R07.9 Chest pain, unspecified (principal); R53.83 Other fatigue; I48.91 Unspecified atrial fibrillation; E11.9 Type 2 diabetes mellitus without complications; Z95.1 Presence of aortocoronary bypass graft; Z79.4 Long term (current) use of insulin; Z88.2 Allergy status to sulfonamides; I50.9 Heart failure, unspecified; I11.0 Hypertensive heart disease with heart failure
CPT/HCPCS: 36415; 71046; 80053; 81001; 82550; 82553; 84484; 85025; 93005; 93010; 99285

== ENCOUNTER → 2019-09-09 | Outpatient (CLI) | payer MEDICARE, OTHER ==
[2019-09-09 09:49] LABS: HEMATOCRIT 41.3 % (37.9-51.0); HEMOGLOBIN 14.3 g/dL (13.5-17.0); MEAN CORPUSCULAR HEMOGLOBIN 30.6 pg (27.0-33.4); MEAN CORPUSCULAR HGB CONC 34.7 g/dL (32.0-36.0); MEAN CORPUSCULAR VOLUME 88 fl (80-97); PLATELET COUNT 171 10^3/uL (150-450); RED BLOOD COUNT 4.67 10^6/uL (4.35-5.55); RED CELL DISTRIBUTION WIDTH 15.4 % (11.5-14.0); WHITE BLOOD COUNT 7.5 10^3/uL (4.0-10.5)
[2019-09-09 10:14] LABS: ALBUMIN 4.6 g/dL (3.5-5.0); ALKALINE PHOSPHATASE 96 U/L (38-126); ANION GAP 12 (5-19); ASPARTATE AMINO TRANSFERASE 22 U/L (17-59); BILIRUBIN,DIRECT 0.2 mg/dL (0.0-0.4); BILIRUBIN,TOTAL 0.9 mg/dL (0.2-1.3); BLOOD UREA NITROGEN 27 mg/dL (7-20); CALCIUM 9.7 mg/dL (8.4-10.2); CARBON DIOXIDE 23 mmol/L (22-30); CHLORIDE 103 mmol/L (98-107); CHOLESTEROL 216.59 mg/dL (0-200); GLUCOSE 242 mg/dL (75-110); POTASSIUM 4.5 mmol/L (3.6-5.0); TOTAL PROTEIN 7.2 g/dL (6.3-8.2); TRIGLYCERIDES 196 mg/dL (<150)
[2019-09-09 10:25] LABS: DIRECT LDL 120 mg/dL (<100)
[2019-09-09 10:30] LABS: FREE T3 2.84 pg/mL (2.77-5.27); FREE T4 (FREE THYROXINE) 1.47 ng/dL (0.78-2.19)
[2019-09-09 10:32] LABS: VLDL CHOLESTEROL 39.2 mg/dL (10-31)
[2019-09-09 10:43] LABS: THYROID STIMULATING HORMONE 2.87 uIU/mL (0.47-4.68)
[2019-09-09 11:03] LABS: ABSOLUTE LYMPHOCYTES# (MANUAL) 1.4 10^3/uL (0.5-4.7); ABSOLUTE MONOCYTES # (MANUAL) 0.4 10^3/uL (0.1-1.4); BASOPHILS % (MANUAL) 0 % (0-2); EOSINOPHILS % (MANUAL) 3 % (0-6); LYMPHOCYTES % (MANUAL) 17 % (13-45); MONOCYTES % (MANUAL) 5 % (3-13); SEGMENTED NEUTROPHILS % (MAN) 74 % (42-78); TOTAL CELLS COUNTED 100
[2019-09-09 11:04] LABS: ANISOCYTOSIS SLIGHT; OVALOCYTES 1+; PLATELET COMMENT ADEQUATE; POIKILOCYTOSIS 1+
== END ==
LOC: OD 09:06
PROVIDERS: ATTEND Specialist
DX: E78.5 Hyperlipidemia, unspecified (principal); Z79.899 Other long term (current) drug therapy
CPT/HCPCS: 36415; 80048; 80061; 80076; 83036; 84439; 84443; 84481; 85025

== ENCOUNTER → 2019-10-20 | Outpatient (CLI) | payer MEDICARE, OTHER ==
[~2019-10-20] MED LIST changes: +ALBUTEROL SULFATE 0.083% NEB 2.5 MG/3 ML AMPUL NEB ONE; -CHONDR SU A NA/HYALUR INTRAOC KIT (SURGICARE) ONE; -EPINEPHRINE INJ/PF 1 MG/1 ML AMPULE ONE; -KETOROLAC TROMETHAMINE 0.45% 4 DROP/0.4 ML DROPERETTE OD PRN; -LIDOCAINE 1%/PHENYLEPHRINE 1.5% 1 ML VIAL ONE
--- NOTE | 2019-10-21 15:30 | Pulmonary Function Test ---
Pulmonary Function Test Date of Procedure:: 10/20/19 INDICATION:: Dyspnea Referring Provider: Dr.Lakshmi Cruz Histologist: Christina Guthrie, EMAIL CAMPAIGN SPECIALIST, [employer] - Report Spirometry: Spirometry: pre-FVC: 3.39 L 75% post-FVC: 3.18 L 70% pre-FEV:1 2.48 L 69% post-FEV1: 2.31 L 65% pre-FEV1/FVC %: 73 post-FEV1/FVC%: 73 predicted: 78 [id number]%: 1.81 L 52% [id number]%: 1.64 L 47% Lung Volume: Total lung capacity: 6.01 L 86% Vital capacity: 3.39 L 75% Inspiratory capacity: 2.41 L FRC N2: 3.60 L 112% ERV: 0.16 L RV: 2.62 L 97% RV/TLC %:: 44 predicted 41 Diffusion Capactity: DLCO: 25.7 89% DLCO/VA: 4.58 125% Impression: Minimal obstructive ventilatory defect is inferred by the decreased flow at FEF 25-75%. Insignificant response to bronchodilator therapy. No restrictive ventilatory defect. No hyperinflation or air trapping. Normal diffusion capacity.
== END ==
LOC: RT 08:19
PROVIDERS: ATTEND Specialist
DX: Z79.899 Other long term (current) drug therapy (principal)
CPT/HCPCS: 94729; 94727; 94060; A9270

== ENCOUNTER → 2019-11-10 | Outpatient (CLI) | payer MEDICARE, OTHER ==
[2019-11-10 14:30] LABS: ABSOLUTE EOSINOPHILS # (AUTO) 0.4 10^3/uL (0.0-0.6); ABSOLUTE LYMPHOCYTES (AUTO) 1.2 10^3/uL (0.5-4.7); ABSOLUTE MONOCYTES (AUTO) 0.8 10^3/uL (0.1-1.4); ABSOLUTE NEUT (AUTO) 6.5 10^3/uL (1.7-8.2); BASOPHILS % (AUTO) 0.5 % (0-2); EOSINOPHILS % (AUTO) 4.8 % (0-6); HEMATOCRIT 37.7 % (37.9-51.0); HEMOGLOBIN 12.9 g/dL (13.5-17.0); LYMPHOCYTES % (AUTO) 13.8 % (13-45); MEAN CORPUSCULAR HEMOGLOBIN 30.8 pg (27.0-33.4); MEAN CORPUSCULAR HGB CONC 34.3 g/dL (32.0-36.0); MEAN CORPUSCULAR VOLUME 90 fl (80-97); MONOCYTES % (AUTO) 8.8 % (3-13); PLATELET COUNT 170 10^3/uL (150-450); RED BLOOD COUNT 4.19 10^6/uL (4.35-5.55); RED CELL DISTRIBUTION WIDTH 13.1 % (11.5-14.0); SEGMENTED NEUTROPHILS % (AUTO) 72.1 % (42-78); TOTAL CELLS COUNTED % (AUTO) 100 %
[2019-11-10 15:05] LABS: FREE T3 2.6 pg/mL (2.77-5.27)
[2019-11-10 15:13] LABS: ANION GAP 5 (5-19); BLOOD UREA NITROGEN 15 mg/dL (7-20); CALCIUM 9.1 mg/dL (8.4-10.2); CARBON DIOXIDE 28 mmol/L (22-30); CHLORIDE 106 mmol/L (98-107); GLUCOSE 122 mg/dL (75-110); POTASSIUM 4.7 mmol/L (3.6-5.0)
[2019-11-10 15:19] LABS: THYROID STIMULATING HORMONE 3.15 uIU/mL (0.47-4.68)
== END ==
LOC: OD 14:02
PROVIDERS: ATTEND Specialist
DX: E78.5 Hyperlipidemia, unspecified (principal); Z79.899 Other long term (current) drug therapy
CPT/HCPCS: 36415; 80048; 84443; 84481; 85025

== ENCOUNTER 2020-03-03 18:46 | Observation (INO) | payer MEDICARE, OTHER ==
[2020-03-03 21:05] LABS: ABSOLUTE EOSINOPHILS # (AUTO) 0.3 10^3/uL (0.0-0.6); ABSOLUTE LYMPHOCYTES (AUTO) 1.4 10^3/uL (0.5-4.7); ABSOLUTE NEUT (AUTO) 8.2 10^3/uL (1.7-8.2); BASOPHILS % (AUTO) 0.1 % (0-2); EOSINOPHILS % (AUTO) 2.8 % (0-6); HEMATOCRIT 42.1 % (37.9-51.0); HEMOGLOBIN 14.5 g/dL (13.5-17.0); LYMPHOCYTES % (AUTO) 12.8 % (13-45); MEAN CORPUSCULAR HEMOGLOBIN 30.5 pg (27.0-33.4); MEAN CORPUSCULAR HGB CONC 34.6 g/dL (32.0-36.0); MEAN CORPUSCULAR VOLUME 88 fl (80-97); MONOCYTES % (AUTO) 9.2 % (3-13); PLATELET COUNT 204 10^3/uL (150-450); RED BLOOD COUNT 4.76 10^6/uL (4.35-5.55); RED CELL DISTRIBUTION WIDTH 15.7 % (11.5-14.0); SEGMENTED NEUTROPHILS % (AUTO) 75.1 % (42-78); TOTAL CELLS COUNTED % (AUTO) 100 %
[2020-03-03 21:08] LABS: ALKALINE PHOSPHATASE 120 U/L (38-126); ANION GAP 13 (5-19); ASPARTATE AMINO TRANSFERASE 41 U/L (17-59); BILIRUBIN,DIRECT 0.1 mg/dL (0.0-0.4); BILIRUBIN,TOTAL 1.4 mg/dL (0.2-1.3); BLOOD UREA NITROGEN 25 mg/dL (7-20); CALCIUM 10.6 mg/dL (8.4-10.2); CARBON DIOXIDE 29 mmol/L (22-30); CHLORIDE 95 mmol/L (98-107); CREATINE KINASE 192 U/L (55-170); GLUCOSE 207 mg/dL (75-110); POTASSIUM 3.5 mmol/L (3.6-5.0); TOTAL PROTEIN 7.8 g/dL (6.3-8.2)
[2020-03-03 21:20] LABS: CREATINE KINASE MB 5.3 ng/mL (<4.55)
[2020-03-03] MEDS ORDERED: MORPHINE SULFATE 10 MG/ML INJ IV ONE (21:20)
[2020-03-03] MEDS ORDERED: ONDANSETRON 4 MG TAB.RAPDIS PO ONE (21:21)
[2020-03-03 21:22] LABS: TROPONIN I 0.035 ng/mL
--- NOTE | 2020-03-03 21:30 | ER Document Report ---
ED General - General Chief Complaint: Abdominal Pain Stated Complaint: ABDOMINAL PAIN Time Seen by Provider: 03/03/20 20:16 Notes: 70-year-old male with a past medical history of hypertension, hyperlipidemia, coronary artery disease, diabetes, CHF, COPD and renal failure presenting today with periumbilical abdominal pain starting at 6 PM. States he was driving in his truck when he felt a sharp pain that became diffuse across his bilateral abdomen and he noticed a umbilical mass after developing the sharp pain. Pain is sharp while he is sitting up but becomes dull and constant while lying down. When asked where his specific pain is he just points all over his stomach says it at this time appears more on the right side instead of the left. States that he has an A-framed abdomen, which he was told was consistent with the developme nt of a hernia, but this was many years ago. Also notes that while he has been in the ER he has had some left-sided chest pain. Also states that last time he had abdominal pain he was seen in the ER he had additional testing performed which showed that he had a 95% occlusion of his LAD. He had open heart surgery in 2014. He was hospitalized for congestive heart failure in November. His containers sales representative is in [place] but has seen Dr. Cruz in the past and his primary care is also in [place]. Does not currently have an updated list of his medications. Denies any alcohol, drug, or tobacco use. Denies any headaches, fevers, chills, shortness of breath, nausea, vomiting, diarrhea or a dditional symptoms. TRAVEL OUTSIDE OF THE [place] IN LAST 30 DAYS: No - Related Data Allergies/Adverse Reactions: Sulfa (Sulfonamide Antibiotics) Allergy (Mild, Verified 03/03/20 19:23) rash Past Medical History - Social History Smoking Status: Never Smoker Family History: Reviewed & Not Pertinent, DM Patient has homicidal ideation: No - Past Medical History Cardiac Medical History: Reports: Hx Atrial Fibrillation, Hx Congestive Heart Failure, Hx Coronary Artery Disease, Hx Hypercholesterolemia, Hx Hypertension, Hx Peripheral Vascular Disease - History of a renal vascular shunt for hypertension Denies: Hx Heart Attack Pulmonary Medical History: Reports: Hx Bronchitis, Hx COPD, Hx Pneumonia, Hx Sleep Apnea Denies: Hx Asthma, Hx Tuberculosis Neurological Medical History: Denies: Hx Cerebrovascular Accident, Hx Seizures, Hx Parkinson's Disease Endocrine Medical History: Reports: Hx Diabetes Mellitus Type 1, Hx Diabetes Mellitus Type 2, Hx Hypothyroidism Renal/ Medical History: Denies: Hx Benign Prostatic Hyperplasia, Hx End Stage Renal Disease, Hx Kidney Stones, Hx Peritoneal Dialysis GI Medical History: Reports: Hx Gastroesophageal Reflux Disease, Hx Hiatal Hernia. Denies: Hx Cirrhosis, Hx Hepatitis, Hx Ulcer Musculoskeletal Medical History: Denies Hx Arthritis, Reports Hx Gout, Denies Hx Multiple Sclerosis Psychiatric Medical History: Denies: Hx Bipolar Disorder, Hx Depression, Hx Schizophrenia Infectious Medical History: Denies: Hx Hepatitis Past Surgical History: Reports: Hx Cardiac Catheterization, Hx Cardiac Surgery - bypass 2014, Hx Coronary Artery Bypass Graft - x 2, Hx Coronary Stent, Hx Kidney (Renal Surgery) - stent placement, Hx Nose Surgery - SINUS, Hx Open Heart Surgery - 2 VESSELS, Hx Orthopedic Surgery - left shoulder 2010, back x 3, Left Knee. Denies: Hx Pacemaker - Immunizations Hx Diphtheria, Pertussis, Tetanus Vaccination: Yes Hx Pneumococcal Vaccination: 09/29/07 Review of Systems - Review of Systems Constitutional: No symptoms reported EENT: No symptoms reported Cardiovascular: See HPI Respiratory: No symptoms reported Gastrointestinal: See HPI Genitourinary: No symptoms reported Male Genitourinary: No symptoms reported Physical Exam - Vital signs Vitals: Temp 97.8 F 03/03/20 19:17 Interpretation: Hypertensive. No: Bradycardic, Tachycardic, Hypoxic, Tachypneic, Febrile - Notes Notes: GENERAL: Alert, interacts well. No distress. HEAD: Normocephalic, atraumatic. EYES: Pupils equal, round, and reactive to light. Extraocular movements intact. ENT: Oral mucosa moist, tongue midline. Oropharynx unremarkable, airway patent. Nares patent, TMs normal, ear canals are normal. NECK: Full range of motion. Supple. Trachea midline. No lymphadenopathy. LUNGS: Clear to auscultation bilaterally, no wheezes, rales or rhonchi. No respiratory distress. HEART: Regular rate and rhythm. No murmur. Normal distal pulses and cap refill. ABDOMEN: Soft, diffusely tender. Nondistended. No rebound or guarding. No masses. Bowel sounds present in all 4 quadrants. GENITOURINARY: deferred EXTREMTIES: Moves all 4 extremities spontaneously. mild non pitting edema. No cyanosis. BACK: No signs of trauma. NEUROLOGICAL: Alert, interactive, age-appropriate verbal. SKIN: Face is flushed. Warm, dry, normal turgor. No rashes or lesions noted. Course - Re-evaluation Re-evalutation: Patient CT scan shows no acute intra-abdominal findings. Chest x-ray is also unremarkable. Initial troponin was 0.035. Upon review of his prior troponins this is typically where it runs at. Second troponin was 0.025. EKG is unremarkable from previous EKG. Patient continued to express left-sided chest discomfort after pain medication. Was provided a list of patient's most recent medications. Based on heart score of 7 and patient's extensive cardiac history and comorbidities feel that patient should be ruled out for ACS. I discussed this case with Dr. Rivas who is in agreement the patient should be admitted for further evaluation. Discussed case with Dr. Valladares. He recommends telemetry observation for the patient. - Vital Signs Vital signs: Temp Pulse Resp BP Pulse Ox 97.8 F 63 12 149/75 H 98 03/03/20 19:24 03/03/20 19:24 03/04/20 03:00 03/04/20 03:00 03/04/20 03:00 - Laboratory Result Diagrams: 03/03/20 19:09 03/03/20 19:09 Laboratory results interpreted by me: 03/03/20 03/03/20 03/03/20 19:09 19:09 19:09 WBC 11.0 H RDW 15.7 H Lymph % (Auto) 12.8 L Sodium 136.9 L Potassium 3.5 L Chloride 95 L BUN 25 H Creatinine 1.42 H Est GFR ( Amer) 59 L Est GFR (MDRD) Non-Af 49 L Glucose 207 H POC Glucose Calcium 10.6 H Total Bilirubin 1.4 H Creatine Kinase 192 H CK-MB (CK-2) 5.30 H NT-Pro-B Natriuret Pep TSH Urine Protein Urine Glucose (UA) 03/03/20 03/03/20 03/03/20 19:09 22:30 23:00 WBC RDW Lymph % (Auto) Sodium Potassium Chloride BUN Creatinine Est GFR ( Amer) Est GFR (MDRD) Non-Af Glucose POC Glucose Calcium Total Bilirubin Creatine Kinase CK-MB (CK-2) NT-Pro-B Natriuret Pep 267 H TSH 6.27 H Urine Protein 30 H Urine Glucose (UA) 50 H 03/04/20 01:53 WBC RDW Lymph % (Auto) Sodium Potassium Chloride BUN Creatinine Est GFR ( Amer) Est GFR (MDRD) Non-Af Glucose POC Glucose 149 H Calcium Total Bilirubin Creatine Kinase CK-MB (CK-2) NT-Pro-B Natriuret Pep TSH Urine Protein Urine Glucose (UA) - EKG Interpretation by Me Additional EKG results interpreted by me: 03/04/20 03:42 EKG is sinus rhhythm at a rate of 66. NC interval of 130. Qtc 516, RBBB and LAFB. No acute changes from previous ekg. Discharge - Discharge Clinical Impression: Abdominal pain Qualifiers: Abdominal location: generalized Qualified Code(s): R10.84 - Generalized abdominal pain Chest pain Qualifiers: Chest pain type: unspecified Qualified Code(s): R07.9 - Chest pain, unspecified Disposition: ADMITTED OBSERVATION Admitting Provider: Blaine (Hospitalist) Unit Admitted: Telemetry
--- NOTE | 2020-03-03 22:41 | RADIOLOGY REPORT (SQ) ---
CLINICAL INDICATION: chest pain. TECHNIQUE: A single portable AP view was obtained of the chest at 2222 hours. COMPARISON: None. FINDINGS: The cardiomediastinal silhouette is prominent with postsurgical change, no adverse change. The lungs are grossly clear. No evidence of effusion or pneumothorax. The visualized bones are unremarkable. Mild chronic parenchymal lung change. IMPRESSION: No evidence of active intrathoracic disease. Chronic change, no adverse change
--- NOTE | 2020-03-03 22:44 | RADIOLOGY REPORT (SQ) ---
CLINICAL INDICATION: diffuse abdominal pain. . TECHNIQUE: Contrast enhanced spiral axial CT imaging was obtained of the abdomen and pelvis with multiplanar reconstructions. This exam was performed according to our departmental dose-optimization program, which includes automated exposure control, adjustment of the mA and/or kV according to patient size and/or use of iterative reconstruction techniques. COMPARISON: January 16, 2017. CORRELATION: None. FINDINGS: Abdomen: The lung bases demonstrate chronic change. No acute process. The heart is prominent but stable with postsurgical change. Coronary calcification. No evidence of pleural or pericardial fluid. The liver is homogeneous. The gallbladder is nondistended without inflammatory change. The pancreas is unremarkable. The spleen is unremarkable. The adrenals are unremarkable. The kidneys appear grossly normal without evidence of urolithiasis or hydronephrosis. There is no evidence of free air. No free fluid. No bulky adenopathy. Abdominal aorta is nonaneurysmal. Pelvis: The bowel is nonobstructed. The bowel is unopacified with oral contrast. Pelvic contents are unremarkable. The appendix is not seen. No pericecal inflammatory change. Metallic stent right renal artery Visualized bones demonstrate age-appropriate osteophytes. Laminectomy changes of the lumbar spine.. IMPRESSION: No acute intra-abdominal process. No adverse change when compared to prior..
[2020-03-03 23:27] LABS: APPEARANCE,URINE CLEAR; BILIRUBIN,URINE NEGATIVE (NEGATIVE); COLOR,URINE YELLOW; GLUCOSE, URINE 50 mg/dL (NEGATIVE); KETONES,URINE NEGATIVE (NEGATIVE); LEUKOCYTE ESTERASE,URINE NEGATIVE (NEGATIVE); NITRITE,URINE NEGATIVE (NEGATIVE); PROTEIN,URINE 30 mg/dL (NEGATIVE); UROBILINOGEN,URINE NEGATIVE mg/dL (<2.0)
[2020-03-04] MEDS ORDERED: AMLODIPINE BESYLATE 5 MG TABLET PO ONE (01:25)
[2020-03-04] MEDS ORDERED: FUROSEMIDE 40 MG TABLET PO ONE (01:26)
[2020-03-04] MEDS ORDERED: FUROSEMIDE 20 MG TABLET PO ONE (01:44)
--- NOTE | 2020-03-04 01:44 | ER Document Report ---
Doctor's Note Notes: 03/04/20 01:42 Elderly man seen primarily by midlevel provider with new onset abdominal and chest pain. EKG is abnormal but not significantly changed from baseline with pre-existing bifascicular block. Troponin x2 is normal here. CT of the abdomen was negative for any acute changes. I reviewed the history and talk with the patient and his daughter and performed a brief bedside examination. I have also reviewed his EKGs. Interestingly this man has had a previous CABG back in 2014 at [facility] and at that time presented only with abdominal pain. I recommended admission for further cardiac evaluation.
[2020-03-04] MEDS ORDERED: MAG HYDROX/AL HYDROX/SIMETH SUSP 30 ML UDCUP PO PRN (02:19)
[2020-03-04] MEDS ORDERED: NITROGLYCERIN 0.4 MG/TAB 25 TAB/BOTTLE SL PRN (02:19)
[2020-03-04] MEDS ORDERED: ACETAMINOPHEN 325 MG TABLET PO PRN (02:19)
[2020-03-04] MEDS ORDERED: DEXTROSE 50%-WATER 25 GM/50 ML DISP.SYRIN IV PRN ×2 (02:26)
[2020-03-04] MEDS ORDERED: DEXTROSE 40% GEL 15 GM TUBE PO PRN ×2 (02:26)
[2020-03-04] MEDS ORDERED: GLUCAGON,HUMAN RECOMB 1 MG INJ IM PRN (02:26)
--- NOTE | 2020-03-04 02:40 | PDOC H&P ---
History of Present Illness Admission Date/PCP: BLESSING BRANCH MD Patient complains of: Abdominal pain History of Present Illness: JAREN SIERRA is a 70 year old male with an extensive past medical history of congestive heart failure, coronary artery disease status post double bypass and subsequent stents, diabetes, morbid obesity, peripheral neuropathy, umbilical hernia and gait instability. He presents with 4 hours of periabdominal pain which was sharp in nature radiating bilaterally occurring while driving he is unable to identify alleviating or exacerbating factors. He also reports a protruding mass which has spontaneously reduced. Patient admits previous episode of periumbilical pain when he was found to have a 95% blockage in his LAD requiring coronary artery bypass. In the emergency department he has persistent dull diffuse pain around the umbilicus as well as the chest. His work-up is notable for hyponatremia, acute renal failure, hyperglycemia, and indeterminate troponin. Patient denies recent change in medication regiment, change in bowel habits. He is referred to the hospitalist for admission. Past Medical History Cardiac Medical History: Reports: Atrial Fibrillation, Congestive Heart Failure, Coronary Artery Disease, Hyperlipidema, Hypertension, Peripheral Vascular Disease - History of a renal vascular shunt for hypertension Denies: Myocardial Infarction Pulmonary Medical History: Reports: Bronchitis, Chronic Obstructive Pulmonary Disease (COPD), Pneumonia, Sleep Apnea Denies: Asthma, Tuberculosis Neurological Medical History: Denies: Seizures Endocrine Medical History: Reports: Diabetes Mellitus Type 1, Diabetes Mellitus Type 2, Hypothyroidism Renal/ Medical History: Denies: End Stage Renal Disease GI Medical History: Reports: Gastroesophageal Reflux Disease, Hiatal Hernia Denies: Cirrhosis, Hepatitis Musculoskeltal Medical History: Reports: Gout Denies: Arthritis Psychiatric Medical History: Denies: Alcohol Dependency, Bipolar Disorder, Depression, Tobacco Dependency Hematology: Denies: Anemia, Sickle Cell Disease, Bleeding Tendencies Past Surgical History Past Surgical History: Reports: Cardiac Catheterization, Coronary Artery Bypass Graft - x 2, Coronary Stent, Gastric Bypass Surgery, Orthopedic Surgery - left shoulder 2011, back x 3, Left Knee Denies: Pacemaker Social History Information Source: Patient, [facility] Records Smoking Status: Never Smoker Frequency of Alcohol Use: None Hx Recreational Drug Use: No Drugs: None Hx Prescription Drug Abuse: No - Advance Directive Resuscitation Status: Full Code Family History Family History: DM, Hypertension Parental Family History Reviewed: Yes Children Family History Reviewed: Yes Sibling(s) Family History Reviewed.: Yes Medication/Allergy Home Medications: Aspirin [Ecotrin 81 mg EC Tablet] 81 mg PO DAILY 12/26/18 Atorvastatin Calcium [Lipitor 40 mg Tablet] 40 mg PO QHS 12/26/18 Carvedilol [Coreg 25 mg Tablet] 25 mg PO Q12 12/26/18 Cetirizine HCl [Zyrtec 10 mg Tablet] 10 mg PO DAILY 12/26/18 Cholecalciferol (Vitamin D3) [Vitamin D3 400 Unit Tablet] 800 unit PO DAILY 12/26/18 Colchicine [Colcrys 0.6 mg Tablet] 0.6 mg PO DAILY 12/26/18 Dabigatran Etexilate Mesylate [Pradaxa 150 mg Capsule] 150 mg PO Q12 12/26/18 Furosemide [Lasix 40 mg Tablet] 80 mg PO BID 12/26/18 Gabapentin [Neurontin 300 mg Capsule] 300 mg PO Q8 12/26/18 Insulin Aspart [Novolog Insulin (Aspart) 100 unit/mL] 25 units SQ MEALS 12/26/18 Insulin Glargine,Hum.rec.anlog [Lantus Insulin 100 Unit/1 ml 10 ml] 70 units SQ QPM 12/26/18 Lisinopril [Zestril] 20 mg PO DAILY 12/26/18 Metformin HCl [Glucophage 500 mg Tablet] 500 mg PO BID 12/26/18 Pramipexole Di-HCl [Mirapex] 1 mg PO QHS 12/26/18 Ropinirole HCl [Requip 2 mg Tablet] 2 mg PO BID 12/26/18 Spironolactone [Aldactone 25 mg Tablet] 25 mg PO Q12 12/26/18 Tamsulosin HCl [Flomax 0.4 mg Cap.sr] 0.4 mg PO DAILY 12/26/18 Terazosin HCl [Hytrin] 4 mg PO DAILY 12/26/18 Cephalexin Monohydrate [Keflex 500 mg Capsule] 500 mg PO QID #20 capsule Allergies/Adverse Reactions: Sulfa (Sulfonamide Antibiotics) Allergy (Mild, Verified 03/03/20 19:23) rash Review of Systems Constitutional: PRESENT: as per HPI. ABSENT: chills, fever(s), headache(s), weight gain, weight loss Eyes: ABSENT: visual disturbances Ears: ABSENT: hearing changes Cardiovascular: ABSENT: chest pain, dyspnea on exertion, edema, orthropnea, palpitations Respiratory: ABSENT: cough, hemoptysis Gastrointestinal: ABSENT: abdominal pain, constipation, diarrhea, hematemesis, hematochezia, nausea, vomiting Genitourinary: ABSENT: dysuria, hematuria Musculoskeletal: PRESENT: muscle weakness, other - Reports several recent near falls.. ABSENT: joint swelling Integumentary: ABSENT: rash, wounds Neurological: PRESENT: paresthesias, weakness - Several recent near falls. ABSE NT: abnormal gait, abnormal speech, confusion, dizziness, focal weakness, syncope Psychiatric: ABSENT: anxiety, depression, homidical ideation, suicidal ideation Endocrine: ABSENT: cold intolerance, heat intolerance, polydipsia, polyuria Hematologic/Lymphatic: ABSENT: easy bleeding, easy bruising Physical Exam Vital Signs: Temp Pulse Resp BP Pulse Ox 97.8 F 63 12 182/85 H 97 03/03/20 19:24 03/03/20 19:24 03/04/20 00:01 03/04/20 00:01 03/04/20 00:01 Intake & Output 03/02/20 03/03/20 03/04/20 11:59 11:59 11:59 Weight 129.274 kg General appearance: PRESENT: cooperative, mild distress, morbidly obese, well- developed Head exam: PRESENT: atraumatic, normocephalic Eye exam: PRESENT: conjunctiva pink, EOMI, PERRLA. ABSENT: scleral icterus Ear exam: PRESENT: normal external ear exam Mouth exam: PRESENT: moist, tongue midline Neck exam: ABSENT: carotid bruit, JVD, lymphadenopathy, thyromegaly Respiratory exam: PRESENT: clear to auscultation eladio. ABSENT: prolonged expiratory phas, rales, rhonchi, wheezes Cardiovascular exam: PRESENT: RRR. ABSENT: diastolic murmur, rubs, systolic murmur Pulses: PRESENT: normal dorsalis pedis pul Vascular exam: PRESENT: normal capillary refill GI/Abdominal exam: PRESENT: hypoactive bowel sounds, normal bowel sounds, soft, tenderness - Periumbilical but no guarding. ABSENT: distended, guarding, mass, organolmegaly, rebound Rectal exam: PRESENT: deferred Extremities exam: PRESENT: full ROM. ABSENT: calf tenderness, clubbing, pedal edema Neurological exam: PRESENT: alert, awake, oriented to person, oriented to place, oriented to time, oriented to situation, CN II-XII grossly intact. ABSENT: motor sensory deficit Psychiatric exam: PRESENT: appropriate affect, normal mood. ABSENT: homicidal ideation, suicidal ideation Skin exam: PRESENT: dry, intact, warm. ABSENT: cyanosis, rash Results Laboratory Results: 03/03/20 19:09 03/03/20 19:09 03/03/20 03/03/20 03/03/20 19:09 19:09 19:09 WBC 11.0 H RBC 4.76 Hgb 14.5 Hct 42.1 MCV 88 MCH 30.5 MCHC 34.6 RDW 15.7 H Plt Count 204 Seg Neutrophils % 75.1 Sodium 136.9 L Potassium 3.5 L Chloride 95 L Carbon Dioxide 29 Anion Gap 13 BUN 25 H Creatinine 1.42 H Est GFR ( Amer) 59 L Glucose 207 H Lactic Acid Calcium 10.6 H Total Bilirubin 1.4 H AST 41 Alkaline Phosphatase 120 Total Protein 7.8 Albumin 5.0 Lipase 99.7 Urine Color Urine Appearance Urine pH Ur Specific [place] Urine Protein Urine Glucose (UA) Urine Ketones Urine Blood Urine Nitrite Ur Leukocyte Esterase Urine WBC (Auto) Urine RBC (Auto) 03/03/20 03/03/20 21:19 23:00 WBC RBC Hgb Hct MCV MCH MCHC RDW Plt Count Seg Neutrophils % Sodium Potassium Chloride Carbon Dioxide Anion Gap BUN Creatinine Est GFR ( Amer) Glucose Lactic Acid 1.2 Calcium Total Bilirubin AST Alkaline Phosphatase Total Protein Albumin Lipase Urine Color YELLOW Urine Appearance CLEAR Urine pH 8.0 Ur Specific [place] 1.020 Urine Protein 30 H Urine Glucose (UA) 50 H Urine Ketones NEGATIVE Urine Blood NEGATIVE Urine Nitrite NEGATIVE Ur Leukocyte Esterase NEGATIVE Urine WBC (Auto) 0 Urine RBC (Auto) 1 03/03/20 03/03/20 03/03/20 19:09 19:09 19:09 Creatine Kinase 192 H CK-MB (CK-2) 5.30 H Troponin I 0.035 NT-Pro-B Natriuret Pep 267 H 03/03/20 22:30 Creatine Kinase CK-MB (CK-2) Troponin I 0.029 NT-Pro-B Natriuret Pep Impressions: Chest X-Ray 03/03/20 21:10 IMPRESSION: No evidence of active intrathoracic disease. Chronic change, no adverse change Abdomen/Pelvis CT 03/03/20 21:16 IMPRESSION: No acute intra-abdominal process. No adverse change when compared to prior.. Assessment and Plan - Diagnosis (1) Neuropathy Is this a current diagnosis for this admission?: Yes Plan: Complicated by gait instability and deconditioning, follow-up physical therapy consult. (2) Abdominal pain Qualifiers: Abdominal location: generalized Qualified Code(s): R10.84 - Generalized abdominal pain Is this a current diagnosis for this admission?: Yes Plan: Likely secondary to spontaneously reduced hernia however possible anginal equivalent given history. Trial p.o. diet, follow-up cardiac enzymes (3) Chest pain Qualifiers: Chest pain type: unspecified Qualified Code(s): R07.9 - Chest pain, unspecified Is this a current diagnosis for this admission?: Yes Plan: Atypical chest pain though the patient's pain is atypical there are multiple risk factors for coronary artery disease and subsequently will observe and evaluation of acute coronary syndrome versus coronary artery disease with anginal equivalents. Cardiac monitoring blood pressure Q6 hours ,TSH, lipid pr ofile, serial cardiac enzymes and consider cardiac stress test though negative Cardiolite stress test 3 months ago at [facility] in [place] (4) Acute renal failure Qualifiers: Acute renal failure type: unspecified Qualified Code(s): N17.9 - Acute kidney failure, unspecified Is this a current diagnosis for this admission?: Yes Plan: Somewhat prerenal, avoid nephrotoxic meds and doses discontinue metformin and colchicine, follow-up chemistry (5) Diabetes Qualifiers: Diabetes mellitus type: type 2 Chronic kidney disease stage: stage 3 (moderate) Is this a current diagnosis for this admission?: Yes Plan: Lantus with Humalog sliding scale q. before meals (6) Hypokalemia Is this a current diagnosis for this admission?: Yes Plan: Likely secondary to Lasix, p.o. repletion and reevaluate chemistry (7) Weakness Is this a current diagnosis for this admission?: Yes Plan: Multifactorial secondary to neuropathy, deconditioning and hypokalemia, potassium repletion and physical therapy evaluation. - Time Time Spent with patient: 25-34 minutes - Inpatient Certification Medical Necessity: Need Close Monitoring Due to Risk of Patient Decompensation
[2020-03-04] MEDS ORDERED: ROPINIROLE HCL 1 MG TABLET PO ONE ×2 (02:45→05:45)
[2020-03-04] MEDS ORDERED: POTASSIUM CHLORIDE 10 MEQ TABLET.ER PO ONE ×2 (03:00→06:00)
[2020-03-04] MEDS: INSULIN LISPRO 100 UNIT/ML 3 ML VIAL SUBCUT SCH ×2 (07:52→11:00)
[2020-03-04 08:00] LABS: CHOLESTEROL 105.93 mg/dL (0-200); TRIGLYCERIDES 173 mg/dL (<150)
[2020-03-04 08:12] LABS: DIRECT LDL 52 mg/dL (<100)
[2020-03-04 08:13] LABS: VLDL CHOLESTEROL 34.6 mg/dL (10-31)
[2020-03-04 09:40] VITALS: BP 104/58
[2020-03-04 09:43] LABS: FREE T3 4.2 pg/mL (2.77-5.27); FREE T4 (FREE THYROXINE) 1.77 ng/dL (0.78-2.19)
[2020-03-04] MEDS ORDERED: POTASSIUM CHLORIDE 10 MEQ TABLET.ER PO SCH (10:00)
--- NOTE | 2020-03-04 11:04 | PDOC DISCHARGE SUMMARY ---
Impression - Admit/DC Date/PCP Admission Date/Primary Care Provider: 03/04/20 02:32 BLESSING BRANCH MD Discharge Date: 03/04/20 - Discharge Diagnosis (1) Chest pain Is this a current diagnosis for this admission?: Yes (2) Abdominal pain Is this a current diagnosis for this admission?: Yes (3) Umbilical hernia without obstruction or gangrene Is this a current diagnosis for this admission?: Yes (4) Acute renal failure Is this a current diagnosis for this admission?: Yes (5) Diabetes Is this a current diagnosis for this admission?: Yes (6) Hypokalemia Is this a current diagnosis for this admission?: Yes - Additional Information Resuscitation Status: Full Code Discharge Diet: Cardiac Discharge Activity: Activity As Tolerated Referrals: SCOUT TA MD [NO LOCAL MD] - Home Medications: Aspirin [Ecotrin 81 mg EC Tablet] 81 mg PO DAILY 12/26/18 Atorvastatin Calcium [Lipitor 40 mg Tablet] 40 mg PO QHS 12/26/18 Carvedilol [Coreg 25 mg Tablet] 25 mg PO Q12 12/26/18 Cetirizine HCl [Zyrtec 10 mg Tablet] 10 mg PO DAILY 12/26/18 Cholecalciferol (Vitamin D3) [Vitamin D3 400 Unit Tablet] 800 unit PO DAILY 12/26/18 Colchicine [Colcrys 0.6 mg Tablet] 0.6 mg PO DAILY 12/26/18 Dabigatran Etexilate Mesylate [Pradaxa 150 mg Capsule] 150 mg PO Q12 12/26/18 Furosemide [Lasix 40 mg Tablet] 80 mg PO BID 12/26/18 Gabapentin [Neurontin 300 mg Capsule] 300 mg PO Q8 12/26/18 Insulin Aspart [Novolog Insulin (Aspart) 100 unit/mL] 25 units SQ MEALS 12/26/18 Insulin Glargine,Hum.rec.anlog [Lantus Insulin 100 Unit/1 ml 10 ml] 70 units SQ QPM 12/26/18 Lisinopril [Zestril] 20 mg PO DAILY 12/26/18 Metformin HCl [Glucophage 500 mg Tablet] 500 mg PO BID 12/26/18 Pramipexole Di-HCl [Mirapex] 1 mg PO QHS 12/26/18 Ropinirole HCl [Requip 2 mg Tablet] 2 mg PO BID 12/26/18 Spironolactone [Aldactone 25 mg Tablet] 25 mg PO Q12 12/26/18 Tamsulosin HCl [Flomax 0.4 mg Cap.sr] 0.4 mg PO DAILY 12/26/18 Terazosin HCl [Hytrin] 4 mg PO DAILY 12/26/18 Cephalexin Monohydrate [Keflex 500 mg Capsule] 500 mg PO QID #20 capsule 08/16/19 History of Present Illiness History of Present Illness: According to admitting provider: JAREN SIERRA is a 70 year old male with an extensive past medical history of congestive heart failure, coronary artery disease status post double bypass and subsequent stents, diabetes, morbid obesity, peripheral neuropathy, umbilical hernia and gait instability. He presents with 4 hours of periabdominal pain which was sharp in nature radiating bilaterally occurring while driving he is unable to identify alleviating or exacerbating factors. He also reports a protruding mass which has spontaneously reduced. Patient admits previous episode of periumbilical pain when he was found to have a 95% blockage in his LAD requiring coronary artery bypass. In the emergency department he has persistent dull diffuse pain around the umbilicus as well as the chest. His work-up is notable for hyponatremia, acute renal failure, hyperglycemia, and indeterminate troponin. Patient denies recent change in medication regiment, change in bowel habits. He is referred to the hospitalist for admission. Hospital Course Hospital Course: Patient had presented with abdominal pain and protrusion/bulging just below his umbilicus. Was noted to have hernia which reduced in the ER. Abdominal pain improved. CT of the abdomen/pelvis was unremarkable. Blood work revealed minimal leukocytosis, hypokalemia and elevated creatinine. BNP was mildly elevated at 267 which is remarkably lower than it has been in the past. I do not believe patient to be in congestive heart failure at the time. In the ER patient developed some chest pain and was subsequently admitted. Chest x-ray was unremarkable. EKG showed old findings of RBBB and left hemiblock. Troponins were trended and were only minimally elevated without any increase. Patient has chest pain this morning is resolved. Patient states that he has nitroglycerin sublingual tablets which he takes and he has a pocket full of those. He also has all his cardiac medications. On elaborate discussion with patient this morning, he states that he follows with a professor of public administration at [employer] called Scout Ta and he saw him recently in November 2019 at which time he underwent a nuclear stress test which was unremarkable and was told by his professor of public administration that he did not need a left heart catheterization. At this point, patient is chest pain-free and is being discharged in stable condition home. He is to continue taking all his meds as before including his cardiac medications. No adjustments made to medical regimen. Physical Exam Vital Signs: Temp Pulse Resp BP Pulse Ox 97.7 F 59 L 16 104/58 L 96 03/04/20 09:08 03/04/20 09:08 03/04/20 09:08 03/04/20 09:08 03/04/20 09:08 Intake & Output 03/03/20 03/04/20 03/05/20 06:59 06:59 06:59 Intake Total 400 491 Output Total 500 Balance -100 491 Weight 125.6 kg General appearance: PRESENT: no acute distress, cooperative Neck exam: ABSENT: JVD Respiratory exam: PRESENT: clear to auscultation eladio, unlabored. ABSENT: wheezes Cardiovascular exam: PRESENT: RRR, +S1, +S2. ABSENT: tachycardia Neurological exam: PRESENT: alert, awake Results Laboratory Results: WBC 11.0 10^3/uL (4.0-10.5) H 03/03/20 19:09 RBC 4.76 10^6/uL (4.35-5.55) 03/03/20 19:09 Hgb 14.5 g/dL (13.5-17.0) 03/03/20 19:09 Hct 42.1 % (37.9-51.0) 03/03/20 19:09 MCV 88 fl (80-97) 03/03/20 19:09 MCH 30.5 pg (27.0-33.4) 03/03/20 19:09 MCHC 34.6 g/dL (32.0-36.0) 03/03/20 19:09 RDW 15.7 % (11.5-14.0) H 03/03/20 19:09 Plt Count 204 10^3/uL (150-450) 03/03/20 19:09 Lymph % (Auto) 12.8 % (13-45) L 03/03/20 19:09 [place] % (Auto) 9.2 % (3-13) 03/03/20 19:09 Eos % (Auto) 2.8 % (0-6) 03/03/20 19:09 Baso % (Auto) 0.1 % (0-2) 03/03/20 19:09 Absolute Neuts (auto) 8.2 10^3/uL (1.7-8.2) 03/03/20 19:09 Absolute Lymphs (auto) 1.4 10^3/uL (0.5-4.7) 03/03/20 19:09 Absolute Monos (auto) 1.0 10^3/uL (0.1-1.4) 03/03/20 19:09 Absolute Eos (auto) 0.3 10^3/uL (0.0-0.6) 03/03/20 19:09 Absolute Basos (auto) 0.0 10^3/uL (0.0-0.2) 03/03/20 19:09 Seg Neutrophils % 75.1 % (42-78) 03/03/20 19:09 Sodium 136.9 mmol/L (137-145) L 03/03/20 19:09 Potassium 3.5 mmol/L (3.6-5.0) L 03/03/20 19:09 Chloride 95 mmol/L (98-107) L 03/03/20 19:09 Carbon Dioxide 29 mmol/L (22-30) 03/03/20 19:09 Anion Gap 13 (5-19) 03/03/20 19:09 BUN 25 mg/dL (7-20) H 03/03/20 19:09 Creatinine 1.42 mg/dL (0.52-1.25) H 03/03/20 19:09 Est GFR ( Amer) 59 (>60) L 03/03/20 19:09 Est GFR (MDRD) Non-Af 49 (>60) L 03/03/20 19:09 Glucose 207 mg/dL (75-110) H 03/03/20 19:09 POC Glucose 235 mg/dL (70-110) H 03/04/20 06:03 Lactic Acid 1.2 mmol/L (0.7-2.1) 03/03/20 21:19 Calcium 10.6 mg/dL (8.4-10.2) H 03/03/20 19:09 Total Bilirubin 1.4 mg/dL (0.2-1.3) H 03/03/20 19:09 Direct Bilirubin 0.1 mg/dL (0.0-0.4) 03/03/20 19:09 Neonat Total Bilirubin Not Reportable 03/03/20 19:09 Neonat Direct Bilirubin Not Reportable 03/03/20 19:09 Neonat Indirect Bili Not Reportable 03/03/20 19:09 AST 41 U/L (17-59) 03/03/20 19:09 ALT 45 U/L (<50) 03/03/20 19:09 Alkaline Phosphatase 120 U/L (38-126) 03/03/20 19:09 Creatine Kinase 192 U/L (55-170) H 03/03/20 19:09 CK-MB (CK-2) 5.30 ng/mL (<4.55) H 03/03/20 19:09 Troponin I 0.035 ng/mL 03/04/20 07:05 NT-Pro-B Natriuret Pep 267 pg/mL (<125) H 03/03/20 19:09 Total Protein 7.8 g/dL (6.3-8.2) 03/03/20 19:09 Albumin 5.0 g/dL (3.5-5.0) 03/03/20 19:09 Triglycerides 173 mg/dL (<150) H 03/04/20 07:05 Cholesterol 105.93 mg/dL (0-200) 03/04/20 07:05 LDL Cholesterol Direct 52 mg/dL (<100) 03/04/20 07:05 VLDL Cholesterol 34.6 mg/dL (10-31) H 03/04/20 07:05 HDL Cholesterol 25 mg/dL (>40) L 03/04/20 07:05 Lipase 99.7 U/L (23-300) 03/03/20 19:09 TSH 6.27 uIU/mL (0.47-4.68) H 03/03/20 22:30 Free T4 1.77 ng/dL (0.78-2.19) 03/04/20 07:05 Free T3 pg/mL 4.20 pg/mL (2.77-5.27) 03/04/20 07:05 Urine Color YELLOW 03/03/20 23:00 Urine Appearance CLEAR 03/03/20 23:00 Urine pH 8.0 (5.0-9.0) 03/03/20 23:00 Ur Specific [place] 1.020 03/03/20 23:00 Urine Protein 30 mg/dL (NEGATIVE) H 03/03/20 23:00 Urine Glucose (UA) 50 mg/dL (NEGATIVE) H 03/03/20 23:00 Urine Ketones NEGATIVE mg/dL (NEGATIVE) 03/03/20 23:00 Urine Blood NEGATIVE (NEGATIVE) 03/03/20 23:00 Urine Nitrite NEGATIVE (NEGATIVE) 03/03/20 23:00 Urine Bilirubin NEGATIVE (NEGATIVE) 03/03/20 23:00 Urine Urobilinogen NEGATIVE mg/dL (<2.0) 03/03/20 23:00 Ur Leukocyte Esterase NEGATIVE (NEGATIVE) 03/03/20 23:00 Urine WBC (Auto) 0 /HPF 03/03/20 23:00 Urine RBC (Auto) 1 /HPF 03/03/20 23:00 Squamous Epi Cells Auto <1 /HPF 03/03/20 23:00 Urine Ascorbic Acid NEGATIVE (NEGATIVE) 03/03/20 23:00 03/03/20 03/03/20 03/03/20 19:09 19:09 22:30 CK-MB (CK-2) 5.30 H Troponin I 0.035 0.029 NT-Pro-B Natriuret Pep 267 H 03/04/20 07:05 CK-MB (CK-2) Troponin I 0.035 NT-Pro-B Natriuret Pep Impressions: Chest X-Ray 03/03/20 21:10 IMPRESSION: No evidence of active intrathoracic disease. Chronic change, no adverse change Abdomen/Pelvis CT 03/03/20 21:16 IMPRESSION: No acute intra-abdominal process. No adverse change when compared to prior.. Plan Time Spent: Less than 30 Minutes Stroke Is this a Stroke Patient?: No Acute Heart Failure - Is this a Heart Failure Patient?: No
--- NOTE | 2020-03-04 20:50 | EKG REPORT ---
SEVERITY:- ABNORMAL ECG - ACCELERATED JUNCTIONAL RHYTHM RBBB AND LPFB : Confirmed by: Contreras Boyle 04-Mar-2020 20:49:39
[2020-03-04] MEDS ORDERED: ATORVASTATIN CALCIUM 40 MG TABLET PO SCH (22:00)
[2020-03-04] MEDS ORDERED: INSULIN GLARGINE,HUM.REC.ANLOG 1,000 UNIT/10 ML VIAL SUBCUT SCH (22:00)
[2020-03-04] MEDS ORDERED: ROPINIROLE HCL 1 MG TABLET PO SCH (22:00)
== END 2020-03-04 11:58 | disposition home or self-care (01) ==
LOC: ER 18:46 → EH 03-04 02:32 → 4S 03-04 03:45
PROVIDERS: ADMIT Internal Medicine; ATTEND Internal Medicine
DX: R07.89 Other chest pain (principal); K42.9 Umbilical hernia without obstruction or gangrene; R10.84 Generalized abdominal pain; E11.42 Type 2 diabetes mellitus with diabetic polyneuropathy; E87.6 Hypokalemia; E87.1 Hypo-osmolality and hyponatremia; E11.65 Type 2 diabetes mellitus with hyperglycemia; E11.51 Type 2 diabetes mellitus with diabetic peripheral angiopathy without gangrene; E11.22 Type 2 diabetes mellitus with diabetic chronic kidney disease; I13.0 Hypertensive heart and chronic kidney disease with heart failure and stage 1 through stage 4 chronic kidney disease, or unspecified chronic kidney disease; N18.3 Chronic kidney disease, stage 3 (moderate); N17.9 Acute kidney failure, unspecified; I45.2 Bifascicular block; I25.10 Atherosclerotic heart disease of native coronary artery without angina pectoris; D72.829 Elevated white blood cell count, unspecified; E78.5 Hyperlipidemia, unspecified; R53.1 Weakness; E66.01 Morbid (severe) obesity due to excess calories; Z95.1 Presence of aortocoronary bypass graft; Z79.82 Long term (current) use of aspirin; Z79.899 Other long term (current) drug therapy; Z79.4 Long term (current) use of insulin; Z79.02 Long term (current) use of antithrombotics/antiplatelets; Z95.5 Presence of coronary angioplasty implant and graft; Z82.49 Family history of ischemic heart disease and other diseases of the circulatory system; Z95.828 Presence of other vascular implants and grafts
CPT/HCPCS: 93005; 99285; 96374; 36415 ×2; 84439; 82553; 82962; 82550; 83605; 83690; 84443; 85025; 80053; 81001; 84484 ×2; 84481; 80061; 83880; 71045; 74177; 93010; 97116; 97161; A9270 ×7; J2270; G0378; J1815; S0119

== ENCOUNTER → 2020-08-01 | Outpatient (CLI) | payer MEDICARE, OTHER ==
[2020-08-01 14:22] VITALS: BP 131/65
--- NOTE | 2020-08-01 14:22 | ER RDC ASSESSMENT REPORT ---
Intake - In the Last 14 days Have you traveled outside [place]?: No Have you been in close contact with someone CONFIRMED: No Worked in Healthcare?: No - Symptoms Subjective Fever([place] feverish): No Chills: No Muscule Aches: No Runny Nose: No Sore Throat: Yes Cough (New or worsening chronic cough): Yes Shortness of breath: Yes Nausea or Vomiting: Yes Headache: Yes Abdominal Pain: No Diarrhea(3 or more loose stools in last 24 hours): No - Do you have any of the following Chronic lung disease: Asthma or emphysema or COPD: Yes Cystic Fibrosis: No Diabetes: Yes High Blood Pressure: Yes Cardiovascular Disease: Yes Chronic Kidney Disease: No Chronic Liver Disease: No Chronic blood disorder like Sickle Cell Disease: No Weak immune system due to disease or medication: No Neurologic condition that limits movement: No Developmental delay - Moderate to Severe: No Morbid Obesity (>100 pounds over ideal weight): Yes - Objective Temperature: 97.7 F Pulse Rate: 57 Respiratory Rate: 14 Blood Pressure: 131/65 O2 Sat by Pulse Oximetry: 96 Objective: Given above, testing performed: flu, strep, covid Disposition: Home; Selfcare General - General Stated Complaint: cough, sore throat Mode of Arrival: Ambulatory Information source: Patient - HPI Notes: 70-year-old male presents to [facility] clinic for COVID-19 testing. Patient denies any known exposure to Covid positive individuals. Onset of symptoms was just this morning, 08/01/2020. Patient is reporting sore throat, cough, shortness of breath primarily with exertion, nausea, headache, and some lower extremity edema. Patient does have a medical history significant for type 2 diabetes, CHF, and COPD. Patient does report weight gain of 4 pounds that he noted this morning as well as moderate swelling to bilateral lower extremities. He was advised to follow-up with cardiology and states that he does have as needed medications to take for the swelling. Patient denies any significant fever, chills, muscle ache, runny nose, abdominal pain or diarrhea. - Related Data Allergies/Adverse Reactions: Sulfa (Sulfonamide Antibiotics) Allergy (Mild, Verified 03/03/20 19:23) rash Past Medical History - General Information source: Patient - Social History Smoking Status: Never Smoker Family History: Reviewed & Not Pertinent, DM - Past Medical History Cardiac Medical History: Reports: Hx Atrial Fibrillation, Hx Congestive Heart Failure, Hx Coronary Artery Disease, Hx Hypercholesterolemia, Hx Hypertension, Hx Peripheral Vascular Disease - History of a renal vascular shunt for hypertension Denies: Hx Heart Attack Pulmonary Medical History: Reports: Hx Bronchitis, Hx COPD, Hx Pneumonia, Hx Sleep Apnea Denies: Hx Asthma, Hx Tuberculosis EENT Medical History: Reports: None Neurological Medical History: Reports: None. Denies: Hx Cerebrovascular Acciden t, Hx Seizures, Hx Parkinson's Disease Endocrine Medical History: Reports: Hx Diabetes Mellitus Type 1, Hx Diabetes Mellitus Type 2, Hx Hypothyroidism Renal/ Medical History: Reports: None. Denies: Hx Benign Prostatic Hyperplasia, Hx End Stage Renal Disease, Hx Kidney Stones, Hx Peritoneal Dialysis Malignancy Medical History: Reports None GI Medical History: Reports: Hx Gastroesophageal Reflux Disease, Hx Hiatal Hernia. Denies: Hx Cirrhosis, Hx Hepatitis, Hx Ulcer Musculoskeletal Medical History: Denies Hx Arthritis, Reports Hx Gout, Denies Hx Multiple Sclerosis Skin Medical History: Reports None Psychiatric Medical History: Reports: None Denies: Hx Bipolar Disorder, Hx Depression, Hx Schizophrenia Traumatic Medical History: Reports: None Infectious Medical History: Reports: None. Denies: Hx Hepatitis Past Surgical History: Reports: Hx Cardiac Catheterization, Hx Cardiac Surgery - bypass 2014, Hx Coronary Artery Bypass Graft - x 2, Hx Coronary Stent, Hx Gastric Bypass Surgery, Hx Kidney (Renal Surgery) - stent placement, Hx Nose Surgery - SINUS, Hx Open Heart Surgery - 2 VESSELS, Hx Orthopedic Surgery - left shoulder 2010, back x 3, Left Knee. Denies: Hx Pacemaker Physical Exam - General General appearance: Appears well, Alert In distress: None Notes: PHYSICAL EXAMINATION: GENERAL: Well-appearing and in no acute distress. HEAD: Atraumatic, normocephalic. EYES: sclera anicteric, conjunctiva are normal. ENT: nares patent. Moist mucous membranes. NECK: Normal range of motion, supple without lymphadenopathy. LUNGS: No increased work of breathing. Lung sounds CTAB and equal. No wheezes rales or rhonchi. HEART: Regular rate and rhythm without murmurs. ABDOMEN: Soft, nontender, normal bowel sounds, no guarding. EXTREMITIES: Normal range of motion, +1 BLE. No cyanosis. NEUROLOGICAL: A&O x 3. Normal speech. PSYCH: Normal mood, normal affect. SKIN: Warm, Dry, normal turgor, no rashes or lesions noted Patient Education/Counseling Counseling/Education: Patient presents with symptoms associated with possible Covid 19 infection. Patient does not have emergency worrying symptoms such as difficulty breathing, shortness of breath, chest pain, pressure, confusion or cyanosis. Patient appears suitable for discharge as vital signs are stable and patient is nontoxic in appearance. Patient was advised to follow-up with trauma coordinator regarding mild bilateral lower extremity edema and 4 pound weight gain. Good return precautions have been discussed with patient, patient verbalized understanding and is agreeable with discharge plan of care at this time. Guidance for worsening S/SX: As a person under investigation for Covid 19, the [facility], division of public health advises you to adhere to the following guidance until your test results are reported to you. If your test result is positive, you will receive additional information from your provider and your local health department at that time. Remain at home until you are cleared by the health provider or public health authorities. Keep a log of visitors to your home, notify any visitors to your home of your isolation status. If you plan to move to a new address or leave the county, notify the local health department in your County. Call your doctor or seek care if you have an urgent medical need. Before seeking medical care, call ahead to get instructions from the provider before arriving at the medical office clinic or hospital. Notify them that you are being tested for the virus that causes Covid 19 so that arrangements can be made, as necessary, to prevent transmission to others in the healthcare setting. Next, notify the local health department in your county. If a medical emergency arises and you need to call 911, inform the first responders that you are being tested for the virus that causes Covid 19. Next, notify the local health department in your county. RDC Discharge - Discharge Clinical Impression: Encounter for screening laboratory testing for COVID-19 virus Upper respiratory infection Qualifiers: URI type: unspecified URI Qualified Code(s): J06.9 - Acute upper respiratory infection, unspecified Condition: Stable Disposition: Home; Selfcare
[2020-08-01 14:50] LABS: A TYPE INFLUENZA AG NEGATIVE (NEGATIVE); B INFLUENZA AG NEGATIVE (NEGATIVE)
== END ==
LOC: RDC 13:19
PROVIDERS: ATTEND Registered Nurse
DX: J06.9 Acute upper respiratory infection, unspecified (principal); Z20.828 Contact with and (suspected) exposure to other viral communicable diseases; R05 Cough; J02.9 Acute pharyngitis, unspecified; R06.02 Shortness of breath; R11.0 Nausea; I11.0 Hypertensive heart disease with heart failure; I50.9 Heart failure, unspecified; I25.10 Atherosclerotic heart disease of native coronary artery without angina pectoris; E11.9 Type 2 diabetes mellitus without complications; R51.9 Headache, unspecified; G35 Multiple sclerosis; J44.9 Chronic obstructive pulmonary disease, unspecified; I48.91 Unspecified atrial fibrillation; M10.9 Gout, unspecified; R60.9 Edema, unspecified; E66.01 Morbid (severe) obesity due to excess calories; Z88.1 Allergy status to other antibiotic agents
CPT/HCPCS: 87070; 87880; 87804; 99201; U0003; G0463; C9803; 87635; 99211

== ENCOUNTER 2020-08-19 09:52 | Emergency (ER) | payer MEDICARE, OTHER ==
--- NOTE | 2020-08-19 10:17 | ER Document Report ---
ED Medical Screen (RME) - General Chief Complaint: Nausea/Vomiting Stated Complaint: VOMITING Time Seen by Provider: 08/19/20 10:09 Notes: Patient is a 70-year-old male who presents to the emergency department with a chief complaint of nausea and vomiting. Denies any diarrhea. States his symptoms started about 2 days ago. [place] States that he was tested for COVID-19 about a month ago, which was negative, but he states that he feels worse than he did a week ago. Patient has a history of congestive heart failure and open heart surgery. Patient would like to be tested for COVID-19 again. Denies any fevers. Exam: Patient appears short of breath. I have greeted and performed a rapid initial assessment of this patient. A comprehensive ED assessment and evaluation of the patient, analysis of test re sults and completion of medical decision making process will be conducted by an additional ED providers. TRAVEL OUTSIDE OF THE [place] IN LAST 30 DAYS: No - Related Data Allergies/Adverse Reactions: Sulfa (Sulfonamide Antibiotics) Allergy (Mild, Verified 08/19/20 10:09) rash Past Medical History - Past Medical History Cardiac Medical History: Reports: Hx Atrial Fibrillation, Hx Congestive Heart Failure, Hx Coronary Artery Disease, Hx Hypercholesterolemia, Hx Hypertension, Hx Peripheral Vascular Disease - History of a renal vascular shunt for hypertension Denies: Hx Heart Attack Pulmonary Medical History: Reports: Hx Bronchitis, Hx COPD, Hx Pneumonia, Hx Sleep Apnea Denies: Hx Asthma, Hx Tuberculosis Neurological Medical History: Denies: Hx Cerebrovascular Accident, Hx Seizures, Hx Parkinson's Disease Endocrine Medical History: Reports: Hx Diabetes Mellitus Type 1, Hx Diabetes Mellitus Type 2, Hx Hypothyroidism Renal/ Medical History: Denies: Hx Benign Prostatic Hyperplasia, Hx End Stage Renal Disease, Hx Kidney Stones, Hx Peritoneal Dialysis GI Medical History: Reports: Hx Gastroesophageal Reflux Disease, Hx Hiatal He rnia. Denies: Hx Cirrhosis, Hx Hepatitis, Hx Ulcer Musculoskeltal Medical History: Denies Hx Arthritis, Reports Hx Gout, Denies Hx Multiple Sclerosis Psychiatric Medical History: Denies: Hx Bipolar Disorder, Hx Depression, Hx Schizophrenia Infectious Medical History: Denies: Hx Hepatitis Past Surgical History: Reports: Hx Cardiac Catheterization, Hx Cardiac Surgery - bypass 2015, Hx Coronary Artery Bypass Graft - x 2, Hx Coronary Stent, Hx Gastric Bypass Surgery, Hx Kidney (Renal Surgery) - stent placement, Hx Nose Surgery - SINUS, Hx Open Heart Surgery - 2 VESSELS, Hx Orthopedic Surgery - left shoulder 2011, back x 3, Left Knee. Denies: Hx Pacemaker - Immunizations Hx Diphtheria, Pertussis, Tetanus Vaccination: Yes Physical Exam - Vital signs Vitals: Temp Pulse Resp BP Pulse Ox 98.0 F 66 18 177/79 H 98 08/19/20 10:01 08/19/20 10:01 08/19/20 10:01 08/19/20 10:01 08/19/20 10:01 Course - Vital Signs Vital signs: Temp Pulse Resp BP Pulse Ox 98.0 F 66 18 177/79 H 98 08/19/20 10:01 08/19/20 10:01 08/19/20 10:01 08/19/20 10:01 08/19/20 10:01
--- NOTE | 2020-08-19 10:52 | ER Document Report ---
ED GI/ - General Chief Complaint: Nausea/Vomiting Stated Complaint: VOMITING Time Seen by Provider: 08/19/20 10:09 Notes: HPI: 70-year-old male presents today stating one 1 week of some body aches, nonproductive cough, and some epigastric discomfort with vomiting. No diarrhea. Patient has a history of hernia surgery in the past. Low-grade fevers. No dysuria or flank pain. Patient has not had a coronavirus test in the last month. No obvious close contacts. ROS: See HPI All other review of systems reviewed and otherwise negative Reviewed vital signs and nursing note as charted by RN. PHYSICAL EXAM: CONSTITUTIONAL: Alert and oriented and responds appropriately to questions. Well-appearing; well-nourished HEAD: Normocephalic; atraumatic EYES: PERRL; sclerae non-icteric ENT: Normal nose; no rhinorrhea; moist mucous membranes; pharynx without lesions noted NECK: Supple without meningismus; non-tender; no cervical lymphadenopathy, no masses CARD: Regular rate and rhythm; no murmurs; symmetric distal pulses RESP: Normal chest excursion without splinting or tachypnea; breath sounds clear and equal bilaterally; scattered rhonchi ABD/GI: Normal bowel sounds; elevated BMI; surgical scars consistent with history; soft, mild tenderness to palpation of the epigastric region with no rebound or guarding, or palpable masses. No abdominal bruits present on auscultation BACK: The back appears normal and is non-tender to palpation EXT: Normal ROM in all joints; non-tender to palpation; no edema SKIN: No acute lesions noted NEURO: CN 2-12 intact; 5/5 bilateral upper and lower extremity strength with sensation intact to light touch PSYCH: The patient's mood and manner are appropriate. Grooming and personal hyg iene are appropriate. TRAVEL OUTSIDE OF THE [place] IN LAST 30 DAYS: No - Related Data Allergies/Adverse Reactions: Sulfa (Sulfonamide Antibiotics) Allergy (Mild, Verified 08/19/20 10:09) rash Past Medical History - Social History Smoking Status: Never Smoker Family History: Reviewed & Not Pertinent, DM - Past Medical History Cardiac Medical History: Reports: Hx Atrial Fibrillation, Hx Congestive Heart Failure, Hx Coronary Artery Disease, Hx Hypercholesterolemia, Hx Hypertension, Hx Peripheral Vascular Disease - History of a renal vascular shunt for hypertension Denies: Hx Heart Attack Pulmonary Medical History: Reports: Hx Bronchitis, Hx COPD, Hx Pneumonia, Hx Sleep Apnea Denies: Hx Asthma, Hx Tuberculosis Neurological Medical History: Denies: Hx Cerebrovascular Accident, Hx Seizures, Hx Parkinson's Disease Endocrine Medical History: Reports: Hx Diabetes Mellitus Type 1, Hx Diabetes Mellitus Type 2, Hx Hypothyroidism Renal/ Medical History: Denies: Hx Benign Prostatic Hyperplasia, Hx End Stage Renal Disease, Hx Kidney Stones, Hx Peritoneal Dialysis GI Medical History: Reports: Hx Gastroesophageal Reflux Disease, Hx Hiatal Hernia. Denies: Hx Cirrhosis, Hx Hepatitis, Hx Ulcer Musculoskeletal Medical History: Denies Hx Arthritis, Reports Hx Gout, Denies Hx Multiple Sclerosis Psychiatric Medical History: Denies: Hx Bipolar Disorder, Hx Depression, Hx Schizophrenia Infectious Medical History: Denies: Hx Hepatitis Past Surgical History: Reports: Hx Cardiac Catheterization, Hx Cardiac Surgery - bypass 2014, Hx Coronary Artery Bypass Graft - x 2, Hx Coronary Stent, Hx Gastric Bypass Surgery, Hx Kidney (Renal Surgery) - stent placement, Hx Nose Surgery - SINUS, Hx Open Heart Surgery - 2 VESSELS, Hx Orthopedic Surgery - left shoulder 2010, back x 3, Left Knee. Denies: Hx Pacemaker - Immunizations Hx Diphtheria, Pertussis, Tetanus Vaccination: Yes Hx Pneumococcal Vaccination: 09/29/07 Physical Exam - Vital signs Vitals: Temp Pulse Resp BP Pulse Ox 98.0 F 66 18 177/79 H 98 08/19/20 10:01 08/19/20 10:01 08/19/20 10:01 08/19/20 10:01 08/19/20 10:01 Course - Re-evaluation Re-evalutation: 08/19/20 10:51 Given the above history and physical, afebrile, with flulike symptoms, with no neck pain or headache, with some vomiting with a history of hernia repair, I will evaluate for the possibility of coronavirus infection, pneumonia, or acute abdominal obstruction or pathology. I do believe acute bacterial meningitis to be unlikely given the above presentation. 08/19/20 13:43 X-ray of the chest and labs as recorded. No vomiting here. CT scan of the abdomen and pelvis is pending. 08/19/20 14:52 CT scan as recorded here. Liver panel and lipase as recorded. Patient has had no vomiting here. He denies any nausea. Afebrile here. Repeat abdominal examination shows no tenderness especially to the right upper quadrant. Patient will be discharged home with strict return precautions and quarantine instructions until the coronavirus returns. - Vital Signs Vital signs: Temp Pulse Resp BP Pulse Ox 98.0 F 66 18 177/79 H 98 08/19/20 10:01 08/19/20 10:01 08/19/20 10:01 08/19/20 10:01 08/19/20 10:01 - Laboratory Result Diagrams: 08/19/20 12:25 08/19/20 12:25 Laboratory results interpreted by me: 08/19/20 08/19/20 08/19/20 12:25 12:25 12:25 RBC 4.03 L Hgb 12.7 L Hct 36.7 L Lymph % (Auto) 11.4 L Glucose 268 H NT-Pro-B Natriuret Pep 1370 H Urine Protein Urine Glucose (UA) Urine Ketones 08/19/20 12:52 RBC Hgb Hct Lymph % (Auto) Glucose NT-Pro-B Natriuret Pep Urine Protein 100 H Urine Glucose (UA) >=500 H Urine Ketones 20 H Discharge - Discharge Clinical Impression: Abdominal discomfort, Generalized body aches Vomiting Qualifiers: Vomiting type: unspecified Vomiting Intractability: non-intractable Nausea presence: with nausea Qualified Code(s): R11.2 - Nausea with vomiting, unspecifi ed Condition: Good Disposition: HOME, SELF-CARE Additional Instructions: Come back immediately for any persistent vomiting, shortness of breath, lethargy, change in mental status, worsening pain, change in location or quality of pain, or any other acute problems. Please make sure that you follow-up with the primary care physician for reassessment as discussed.
--- NOTE | 2020-08-19 11:12 | RADIOLOGY REPORT (SQ) ---
EXAM DESCRIPTION: CHEST SINGLE VIEW IMAGES COMPLETED DATE/TIME: 08/19/2020 11:03 am REASON FOR STUDY: shortness of breath COMPARISON: 03/03/2020 TECHNIQUE: Single frontal radiographic view of the chest acquired. NUMBER OF VIEWS: One view. LIMITATIONS: None. FINDINGS: LUNGS AND PLEURA: No pneumothorax. No consolidation or pleural effusion. MEDIASTINUM AND HILAR STRUCTURES: Stable. HEART AND VASCULAR STRUCTURES: Stable. BONES: No acute findings. HARDWARE: CABG. OTHER: No other significant finding. IMPRESSION: NO ACUTE FINDINGS. TECHNICAL DOCUMENTATION: JOB ID: [id number] [place]-72 2010 [employer]- All Rights Reserved Reading location - IP/workstation name: [email or web address]
[2020-08-19] MEDS ORDERED: ONDANSETRON HCL INJ/PF 4 MG/2 ML SDV IV ONE (12:59)
[2020-08-19] MEDS ORDERED: NORMAL SALINE 1000 ML 1,000 ML IV ONE (12:59)
[2020-08-19 13:14] LABS: ABSOLUTE EOSINOPHILS # (AUTO) 0.1 10^3/uL (0.0-0.6); ABSOLUTE LYMPHOCYTES (AUTO) 0.9 10^3/uL (0.5-4.7); ABSOLUTE MONOCYTES (AUTO) 0.8 10^3/uL (0.1-1.4); ABSOLUTE NEUT (AUTO) 6.3 10^3/uL (1.7-8.2); BASOPHILS % (AUTO) 0.3 % (0-2); EOSINOPHILS % (AUTO) 1.7 % (0-6); HEMATOCRIT 36.7 % (37.9-51.0); HEMOGLOBIN 12.7 g/dL (13.5-17.0); LYMPHOCYTES % (AUTO) 11.4 % (13-45); MEAN CORPUSCULAR HEMOGLOBIN 31.6 pg (27.0-33.4); MEAN CORPUSCULAR HGB CONC 34.7 g/dL (32.0-36.0); MEAN CORPUSCULAR VOLUME 91 fl (80-97); MONOCYTES % (AUTO) 9.9 % (3-13); PLATELET COUNT 167 10^3/uL (150-450); RED BLOOD COUNT 4.03 10^6/uL (4.35-5.55); RED CELL DISTRIBUTION WIDTH 12.9 % (11.5-14.0); SEGMENTED NEUTROPHILS % (AUTO) 76.7 % (42-78); TOTAL CELLS COUNTED % (AUTO) 100 %; WHITE BLOOD COUNT 8.1 10^3/uL (4.0-10.5)
[2020-08-19 13:27] LABS: APPEARANCE,URINE CLEAR; BILIRUBIN,URINE NEGATIVE (NEGATIVE); COLOR,URINE YELLOW; GLUCOSE, URINE >=500 mg/dL (NEGATIVE); KETONES,URINE 20 mg/dL (NEGATIVE); LEUKOCYTE ESTERASE,URINE NEGATIVE (NEGATIVE); NITRITE,URINE NEGATIVE (NEGATIVE); PROTEIN,URINE 100 mg/dL (NEGATIVE); URINE SPECIFIC GRAVITY 1.021; UROBILINOGEN,URINE NEGATIVE mg/dL (<2.0)
[2020-08-19 13:29] LABS: ALBUMIN 4.5 g/dL (3.5-5.0); ALKALINE PHOSPHATASE 119 U/L (38-126); ANION GAP 11 (5-19); ASPARTATE AMINO TRANSFERASE 28 U/L (17-59); BILIRUBIN,DIRECT 0.2 mg/dL (0.0-0.4); BILIRUBIN,TOTAL 1.3 mg/dL (0.2-1.3); BLOOD UREA NITROGEN 15 mg/dL (7-20); CARBON DIOXIDE 27 mmol/L (22-30); CHLORIDE 102 mmol/L (98-107); GLUCOSE 268 mg/dL (75-110); POTASSIUM 4.1 mmol/L (3.6-5.0); TOTAL PROTEIN 6.9 g/dL (6.3-8.2)
[2020-08-19 13:31] LABS: A TYPE INFLUENZA AG NEGATIVE (NEGATIVE); B INFLUENZA AG NEGATIVE (NEGATIVE)
[2020-08-19 13:38] LABS: TROPONIN I 0.02 ng/mL
--- NOTE | 2020-08-19 14:35 | RADIOLOGY REPORT (SQ) ---
EXAM DESCRIPTION: CT ABD/PELVIS WITH IV ONLY IMAGES COMPLETED DATE/TIME: 08/19/2020 1:57 pm REASON FOR STUDY: Abdominal pain COMPARISON: 03/03/2020. TECHNIQUE: CT scan of the abdomen and pelvis performed using helical scanning technique with dynamic intravenous contrast injection. No oral contrast. Images reviewed with lung, soft tissue, and bone windows. Reconstructed coronal and sagittal MPR images reviewed. Delayed images for evaluation of the urinary system also acquired. All images stored on PACS. All CT scanners at this facility use dose modulation, iterative reconstruction, and/or weight based d osing when appropriate to reduce radiation dose to as low as reasonably achievable (ALARA). [facility]: Dose Right [facility]: CareDose [facility]: Dose Right [facility]: Teradose 4D [facility]: [employer] CONTRAST TYPE AND DOSE: contrast/concentration: Isovue 350.00 mmol/ml; Total Contrast Delivered: 100 .0 ml; Total Saline Delivered: 72.0 ml RENAL FUNCTION: BUN 15 creatinine 1.95. RADIATION DOSE: CT Rad equipment meets quality standard of care and radiation dose reduction techniq ues were employed. CTDIvol: 18.7 - 21.1 mGy. DLP: 2446 mGy-cm.. LIMITATIONS: None. FINDINGS: LOWER CHEST: No significant findings. No nodules or infiltrates. LIVER: Normal size. No masses. No dilated ducts. SPLEEN: Normal size. No focal lesions. PANCREAS: No masses. No significant calcifications. No adjacent inflammation or peripancreatic fluid collections. Pancreatic duct not dilated. GALLBLADDER: No identified stones by CT criteria. No inflammatory changes to suggest cholecystitis. ADRENAL GLANDS: No significant masses or asymmetry. RIGHT KIDNEY AND URETER: Several cortical cysts. No solid masses. No significant calcifications. No hydronephrosis or hydroureter. LEFT KIDNEY AND URETER: Several cortical cysts. No solid masses. No significant calcifications. No hydronephrosis or hydroureter. AORTA AND VESSELS: No aneurysm. No dissection. Renal arteries, SMA, celiac without stenosis. Stent i n the right renal artery. RETROPERITONEUM: No retroperitoneal adenopathy, hemorrhage or masses. BOWEL AND PERITONEAL CAVITY: No masses or inflammatory changes. No free fluid or peritoneal masses. APPENDIX: Normal. PELVIS: No mass. No free fluid. Normal bladder. ABDOMINAL WALL: No masses. No hernias. BONES: No significant or acute findings. OTHER: No other significant finding. IMPRESSION: NO SIGNIFICANT OR ACUTE FINDING IN THE ABDOMEN OR PELVIS ON CT SCAN WITH IV CONTRAST. I NCIDENTAL RENAL CORTICAL CYSTS. TECHNICAL DOCUMENTATION: JOB ID: [id number] Quality ID # [id number]: Final reports with documentation of one or more dose reduction techniques (e.g., Au tomated exposure control, adjustment of the mA and/or kV according to patient size, use of iterative reconstruction technique) 2010 [employer]- All Rights Reserved Reading location - IP/workstation name: [email or web address]
[2020-08-19 15:42] VITALS: BP 173/84
--- NOTE | 2020-08-19 20:59 | EKG REPORT ---
SEVERITY:- ABNORMAL ECG - ACCELERATED JUNCTIONAL ESCAPE RHYTHM VERSUS ECTOPIC ATRIAL RHYTHM RIGHT BUNDLE BRANCH BLOCK : Confirmed by: Farrah Cruz MD 19-Aug-2020 20:59:13
== END 2020-08-19 15:45 | disposition home or self-care (01) ==
LOC: ER 09:52
DX: R11.2 Nausea with vomiting, unspecified (principal); M79.10 Myalgia, unspecified site; R10.13 Epigastric pain; Z20.828 Contact with and (suspected) exposure to other viral communicable diseases; I48.91 Unspecified atrial fibrillation; I50.9 Heart failure, unspecified; E78.00 Pure hypercholesterolemia, unspecified; I11.0 Hypertensive heart disease with heart failure; E11.9 Type 2 diabetes mellitus without complications; Z95.1 Presence of aortocoronary bypass graft
CPT/HCPCS: 93005; 99285; 96361; 96374; 36415; 83690; 85025; 80053; 81001; 84484; 87804; 83880; 71045; 74177; 93010; U0003; J2405; J7030; C9803; 87635

== ENCOUNTER → 2020-10-21 | Outpatient (CLI) | payer MEDICARE, OTHER ==
[~2020-10-21] MED LIST changes: -ALBUTEROL SULFATE 0.083% NEB 2.5 MG/3 ML AMPUL NEB ONE; +COVID-19 VACCINE (PFIZER)/PF 30 MCG/0.3 ML VIAL IM ONE; +EPINEPHRINE INJ/PF 1 MG/1 ML AMPULE IM PRN
== END ==
LOC: EMPHEALTH 06:18
PROVIDERS: ATTEND Internal Medicine
DX: Z23 Encounter for immunization (principal)
CPT/HCPCS: 91300